=== PATIENT | male | born 1970 | race African-American/Black ===

== ENCOUNTER 2024-12-30 13:17 | Outpatient (AMB) | payer OTHER, SELFPAY ==
--- OUTSIDE RECORDS SUMMARY | 2024-12-27 15:23 | XMS_ITS | Encounter Summary ---
Author Organization [facility] Address [address] [place] [address] Phone Care Team Providers Care Stamp Pad Finisher Name Role Phone Joel Armando MD Unavailable [phone] Doron Whitley Unavailable [phone] Dangelo Huber MD Primary Care Provider Encounter Details Date Type Department Care Team (Latest Contact Info) Description 12/27/2024 3:23 PM EST - 12/27/2024 11:59 PM [facility] Hospital Encounter X-ray, [facility] - [address], [address] [place] [id number] Karo Bishop, SOFT SUGAR CUTTER [address] [place] [phone] [email or web address] Arrived Discharge Disposition: Home or Self Care Social History Tobacco Use Types Packs/Day Years Used Date Smoking Tobacco: Never Smokeless Tobacco: Never Alcohol Use Standard Drinks/Week Comments Yes 0 (1 standard drink = 0.6 oz pur e alcohol) only the weekends, social Education Answer Date Recorded Are you interested in more education? Not on melinda e 10/14/2024 Are you concerned about learning? Not on file 10/14/2024 No 10/14/2024 No 10/14/2024 Digital Access Answer Date Recorded No 10/14/2024 No 10/14/2024 Reliable internet access at home? Not on file 10/14/2024 Device with a working camera? Not on file Sex and Gender Information Value Date Recorded Sex Assigned at Male 11/04/2024 4:07 PM EDT Legal Sex Male 5:01 PM EDT Gender Identity Male 11/04/2024 4:07 PM EDT Sexual Orientation Straight 11/04/2024 4: 07 PM EDT documented as of this encounter Medications at Time of Discharge amLODIPine (NORVASC) 10 MG tablet Take 10 mg by mouth daily. aspirin 81 MG EC tablet Take 81 mg by mouth daily. 08/22/2024 metoprolol succinate (TOPROL-XL) 200 MG 24 hr tablet Take 200 mg by mouth daily. documented as of this encounter Plan of Treatment Upcoming Encounters Date Type Department Care Team (Latest Contact Info) Description 01/02/2025 Procedure Pass [facility] PERIOPERATIVE DEPT [address] [place] [phone] 01/02/2025 7:30 AM EST Hospital Encounter [facility] PERIOPERATIVE DEPT [address] [place] [phone] Doron Whitley MBBS [address] [place] [phone] [email or web address] 01/02/2025 7:30 AM EST Anesthesia Event [facility] PERIOPERATIVE DEPT [address] [place] [phone] Cherrie Hall MD [address] [place] [phone] [email or web address] 01/02/2025 7:30 AM EST - 01/02/2025 8:44 PM EST Surgery [facility] PERIOPERATIVE DEPT [address] [place] [phone] Doron Whitley MBBS [address] [place] [phone] [email or web address] ANEURYSM DESCENDING AORTA- EXTENT I Scheduled Procedures Name Priority Associated Diagnoses Date/Ti me REPAIR ANEURYSM DESCENDING AORTA Descending aortic aneurysm 01/02/2025 7:30 AM EST FLUOROSCOPY GUIDED PLACEMENT DRAIN LUMBAR SPINE Descending aortic aneurysm 01/02/2025 7:30 AM EST documented as of this encounter Goals Goal Patient Goal Type Associated Problems Recent Progress Patient-Stated? Author Autogenerat ed Goal Care Plan Autogenerated Problem No Optime, Admin documented as of this encounter Procedures Procedure Name Priority Date/Time Associated Diagnosis Comments XR CHEST PA AND LATERAL 2 VIEWS Routine 12/27/2024 3:29 PM EST Aneurysm documented in this encounter Results * XR CHEST PA AND LATERAL 2 VIEWS (12/27/2024 3:29 PM EST) Anatomical Region Laterality Modality Chest Radiographic Lianna ging 12/27/2024 3:41 PM EST Impressions 12/27/2024 4:08 PM EST Clear lungs. No pulmonary edema or pneumonia. Status post repair of type A aortic dissection with grossly unchanged enlarged mediastinum. ATTESTATION: I, Dr. Ra Marquez as teaching physician, have reviewed the images for this case and if necessary edited the report originally created by Mahamed Shelby. Narrative 12/27/2024 4:08 PM EST XR CHEST PA AND LATERAL 2 VIEWS Referring clinician's provided indication for this examination in [facility]: Dyspnea on exertion; preoperative evaluation COMPARISON: CT CHEST OUTSIDE (NO INTERPRETATION) FINDINGS: Devices/Tubes/Lines: None. Lungs: The lungs are clear. No focal consolidation or pulmonary edema. Pleura: No pleural effusion or pneumothorax. Heart/Mediastinum: Status post repair of Type A aortic dissection with grossly unchanged enlarged mediastinum with residual aortic root aneurysm and descending thoracic aortic aneurysm . Bones/Soft Tissues: Status post median sternotomy, with intact wires. No significant skeletal abnormality. Procedure Note Ra Marquez MD - 12/27/2024 XR CHEST PA AND LATERAL 2 VIEWS Referring clinician's provided indication for this examination in [facility]:Dyspnea on exertion; preoperative evaluation COMPARISON: CT CHEST OUTSIDE (NO INTERPRETATION) FINDINGS: Devices/Tubes/Lines: None. Lungs: The lungs are clear. No focal consolidation or pulmonary edema. Pleura: No pleural effusion or pneumothorax. Heart/Mediastinum: Status post repair of Type A aortic dissection withgrossly unchanged enlarged mediastinum with residual aortic root aneurysmand descending thoracic aortic aneurysm . Bones/Soft Tissues: Status post median sternotomy, with intact wires. Nosignificant skeletal abnormality. IMPRESSION: Clear lungs. No pulmonary edema or pneumonia. Status post repair of type A aortic dissection with grossly unchangedenlarged mediastinum. ATTESTATION: I, Dr. Ra Marquez as teaching physician, have reviewedthe images for this case and if necessary edited the report originallycreated by Mahamed Shelby. 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 documented in this encounter Additional Health Concerns Active Problems Noted Date Diagnosed Date Autogenerated Problem 12/19/2024 documented as of this encounter Care Teams Stamp Pad Finisher Relationship Specialty Start Date End Date Dangelo Huber MD [address] [phone] PCP - General Family Medicine 12/09/24 Joel Armando MD [address] [place] [phone] Thoracic Surgery 10/13/24 Doron Whitley MBBS [address] [place] [phone] [email or web address] Cardiothoracic Surgery 10/13/24 documented as of this encounter Additional Source Comments The information contained in this document represents components of the legal health record. It is not the complete legal health record.[facility]
--- NOTE | 2024-12-30 13:21 | A.OFFPC_ITS ---
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 Type A Aortic Dissection: The patient has a history of a Type A aortic dissection, which occurred suddenly as an emergency. He experienced tearing chest pain described as a burning sensation, along with severe pain in his back from top to bottom. The initial event was treated with emergency surgery, and it was noted that the dissection extended down to his kidneys. He is scheduled for a second surgery on Thursday in [place] due to remaining dilation of the aortic arch. This procedure will involve an incision on the side. There is a plan for a subsequent surgery on the left side after a healing period of six months to a year. Hypertension: The patient has a history of hypertension, which also runs in his family. He was previously on lisinopril but developed a severe allergic reaction with swelling after his surgery and was taken off the medication. He is currently taking amlodipine, aspirin, and metoprolol, and his blood pressure is reported to be well-controlled. Health Maintenance: For preventative care, the patient has had a colonoscopy and is considered clear for 10 years. He also recently had a tooth pulled as part of his pre-surgical dental clearance to prevent infection. Surgical History: - Emergency repair of Type A aortic diss ection - Tooth extraction for pre-operative princess arance Medications: - Amlodipine for hypertension - Aspirin - Metoprolol for heart rate and blood pr essure control Social History: - Alcohol use: Reports social alcohol co nsumption on weekends. - Tobacco use: Denies ever smoking. 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 Family History: - Hypertension Diagnostic Results: - Colonoscopy: Patient is up-to-date and cleared for 10 years. Past Medical History - Type A aortic dissection, status post emergency surgical repair - Hypertension - History of allergy to lisinopril, caus ing angioedema - History of kidney stones - History of intermittent right ear pain Health Maintenance - Colon cancer screening: Patient has mckeon d a colonoscopy and is clear for 10 years. - Pre-operative dental clearance: Sara kang was cleared by a dentist and had a tooth extraction to rule out any sources of infection. [facility] Medical History (Updated 12/30/24 @ 14:51 by Dangelo Huber MD) Class 1 obesity Hypertension Type 1 dissection of ascending aorta Family History (Updated 12/30/24 @ 13:28 by Suad Wilson [facility]) Mother Cardiac arrest Father No problems noted. Social History Housing: Apartment Patient Tobacco Use Status: Never used Tobacco service: No Current occupational status: employed Cognitive needs: No Hearing needs: No Vision needs: No Questionnaire PHQ-9 Over the last 2 weeks, how often have you been bothered by any of the following problems? 1. Little interest or pleasure in doing things: several days 2. Feeling down, depressed, or hopeless: several days 3. Trouble falling or staying asleep, or sleeping too much: not at all 4. Feeling tired or having little energy: not at all 5. Poor appetite or overeating: not at all 6. Feeling bad about yourself - or that you are a failure or have let yourself or your family down: not at all 7. Trouble concentrating on things, such as reading the newspaper or watching television: several days 8. Moving or speaking so slowly that other people could have noticed. Or the opposite - being so fidgety or restless that you have been moving around a lot more than usual: not at all 9. Thoughts that you would be better off or of hurting yourself in some way: not at all Total score: 3 Source: Developed by Drs. Alejandro Martinez, Sagrario Mills, Maxime Armenta and colleagues, with an educational karey from [employer]. Thrive Questionnaire Date Thrive assessed: 12/23/24 I am a: Patient What is your living situation today?: I have a steady place to live Within the past 12 months, did the food you bought not last and you didn't have the money to get more?: I choose not to answer this question Within the past 12 months, did you worry whether your food would run out before you got money to buy more?: I choose not to answer this question Do you have trouble paying for medicines?: No Do you have trouble getting transportation to medical appointments?: No Do you have trouble paying your heating and electricity bill?: I choose not to answer this question Do you have trouble taking care of your child, family member or friend?: No Do you have trouble with day-to-day activities such as bathing, preparing meals, shopping, managing finances, etc.?: No Are you currently unemployed and looking for a job?: No Are you interested in more education?: No Please select the resources that you would like help with: None Currently or been in a relationship where the following occur: No concerns reported THRIVE Score: 0 AUDIT C Alcohol Use Questionnaire (AUDIT-C) 1. How often do you have a drink containing alcohol?: 2-4 times a month 2. How many drinks containing alcohol do you have on a typical day when you are drinking?: 1 or 2 3. How often do you have six or more drinks on one occasion?: Less than monthly Total Score: 3 MAHOGANY-7 AMB Questionnaire MAHOGANY-7 Date MAHOGANY - 7 assessed: 12/30/24 Feeling nervous, anxious, or on edge: 1 = Several days Not being able to stop or control worryin = Not at all Worrying too much about different things: 2 = More than half the days Trouble relaxin = Not at all Being so restless that it is hard to sit still: 0 = Not at all Becoming easily annoyed or irritable: 1 = Several days Feeling afraid as if something awful might happen: 2 = More than half the days Total MAHOGANY-7 score (0-4 normal; 5-9 mild; 10-14 moderate; 15-21 severe): 6 Source: Developed by Drs. Alejandro Martinez, Sagrario Mills, Maxime Armenta and colleagues, with an educational karey from [employer]. Review of Systems Narrative Review of Systems - Constitutional: Reports feeling nervous and scared about upcoming surgery. - Cardiovascular: History of tearing chest pain during aortic dissection. - Musculoskeletal: History of severe back pain from top to bottom. - GI/: Reports normal bowel and bladder function. - Ears: Reports a history of intermittent right ear aches, but denies current pain. 10-point ROS reviewed and negative except as noted in HPI Physical exam (Primary Care) Vital Signs: Last Vital Signs Temp 98.6 F 12/30/24 13:25 Pulse 73 12/30/24 13:25 BP 139/67 12/30/24 13:25 Pulse Ox 97 12/30/24 13:25 Oxygen Delivery Method Room Air 12/30/24 13:25 BMI result Body Mass Index 31.3 Tobacco/Smoking Status: Tobacco use Status Tobacco use date assessed 12/30/24 12/30/24 13:22 Patient Tobacco Use Status Never used Tobacco 12/30/24 13:22 PHQ-9: PHQ-9 Score PHQ-9: Total score 3 12/30/24 15:00 Thrive Assessment: Date of Thrive Assessment Date Thrive assessed 12/23/24 12/30/24 13:22 Currently or been in a relationship where the following occur: No concerns reported Narrative Physical Exam General: Well-appearing, in no acute distress. Vital signs: Within normal limits. HEENT: Normocephalic, atraumatic. PERRLA, EOMI. Conjunctiva clear, sclera anicteric. Oropharynx clear, mucous membranes moist. TMs intact bilaterally. Neck: Supple, no lymphadenopathy, no thyromegaly, no JVD or carotid bruits. Cardiovascular: RRR, normal S1/S2, no murmurs, rubs, or gallops. Peripheral pulses 2+ and symmetric. No edema. Respiratory: Lungs clear to auscultation bilaterally, no wheezes, rales, or rhonchi. Normal effort. Abdomen: Soft, non-tender, non-distended. Normoactive bowel sounds. No hepatosplenomegaly, no masses. MSK: Full range of motion, no joint swelling or deformity. Normal gait. Skin: Warm, dry, intact. No rashes, lesions, or pallor. Neuro: Alert and oriented x3. Cranial nerves II-XII intact. Strength 5/5 throughout. Sensation intact. Reflexes 2+ symmetric. Normal coordination and gait. Psych: Appropriate mood and affect. Normal judgment and insight. Office Procedures Flu Questionnaire Does the patient have a severe egg allergy?: No Does the patient have severe life threatening allergies?: No Does the patient have a fever or illness today?: No Has the patient ever had Guillain-[place] Syndrome?: No Has the patient ever had any past reaction to a flu shot?: No Immunizations Fluarix [id number] (PF) 45 mcg (15 mcg x 3)/0.5 mL IM syringe Performing Provider: Dangelo Huber MD Performing Location: [facility] Documented (not given) by: Suad Wilson [facility] on 12/30/24 13:33 Reason Not Given: Patient Refused Coding Level of Care Code Est Pt Level 3 (59636) Diagnoses Type 1 dissection of ascending aorta I71.010 Hypertension I10 Class 1 obesity E66.9 Assessment & Plan Assessment & Plan (1) Type 1 dissection of ascending aorta: Code(s): I71.010 - Dissection of ascending aorta Category: Medical (2) Hypertension: Code(s): I10 - Essential (primary) hypertension Category: Medical (3) Class 1 obesity: Code(s): E66.9 - Obesity, unspecified Category: Medical Plan Consent The patient provided verbal consent to have pictures of his surgical scar taken for his medical record. Patient was informed and verbally consented to the use of an ambient scribe for clinic note documentation during this visit. Plan 1. Type A Aortic Dissection - The patient will proceed with his scheduled second-stage surgical repair in [place] on Thursday. - Patient education was provided using a 3D anatomical model to explain the aortic anatomy, the location of the dissection, the surgical plan, and the potential risks, including nerve damage. - A post-operative follow-up appointment is scheduled for February 01. 2. Health Maintenance / Establishment Of Care - To establish a baseline, a comprehensive panel of labs was ordered, including a complete blood count, comprehensive metabolic panel, hemoglobin A1c, lipid panel, hepatitis B, hepatitis C, HIV, folate, B12, vitamin D, and thyroid studies. - A urinalysis was also ordered. - Will ensure medical records from Dr. Ambriz are faxed to the office for continuity of care. - The patient will have labs drawn today and will follow up in two weeks to discuss the results. Discussion Notes I reviewed the patient's anatomy with him using a 3D model, explaining the nature of his Type A aortic dissection. I showed him how the aorta arches towards the back, which is why he experienced back pain, and pointed out why the surgeons plan to enter from the side due to the aorta's proximity to the spine. We discussed the risks of the upcoming surgery, including the 5% chance of complications and the potential for nerve damage. I acknowledged his nervousness and the life-threatening nature of his initial event, noting that most people with this condition do not survive. I explained that I am ordering a comprehensive set of baseline labs to get a complete picture of his health, including checks on kidney and liver function, blood counts, cholesterol, and sugar levels. We agreed that he would have the labs done today and follow up in two weeks to review the results. Patient Instructions - Proceed with your surgery scheduled for this Thursday in [place]. - Please have your blood work done today at the lab next door. - Please make sure your surgeon's office, Dr. Ambriz, faxes your medical records to us. - Come back in two weeks to talk about your lab results. - We have you scheduled for a follow-up visit here on February 01, after your surgery. Medical Decision Making The patient is a 54-year-old male with a significant history of a surgically- repaired Type A aortic dissection, who presents to establish care in anticipation of a second-stage repair surgery. The primary focus of this visit is to establish a baseline health status and ensure continuity of care post- operatively. Given his complex cardiovascular history and upcoming major surgery, a comprehensive laboratory evaluation is warranted to assess his hematologic, metabolic, and infectious disease status. This includes a CBC, CMP, HbA1c, lipid panel, and screenings for hepatitis and HIV to ensure no underlying conditions could complicate his recovery. His hypertension is currently managed on amlodipine, aspirin, and metoprolol, with a noted severe allergy to lisinopril. I provided extensive patient education using a 3D anatomical model to improve his understanding of the condition and surgical plan, which also served to address his expressed anxiety. The plan is to review lab results in two weeks and see him for post-operative management, coordinating with his surgical team. Total Time Statement 30 min Total time spent caring for the patient today includes pre-visit chart review, documentation, review of laboratory and diagnostic imaging results, medication reconciliation, medically necessary evaluation, counseling on diagnoses, care coordination, ordering appropriate tests and medications, review of tests performed by other providers, reporting test results to the patient, and communication with other healthcare providers. Orders: Orders Influenza [id number] Immunization 12/30/24 Z23 - Encounter for immunization Complete Blood Count Auto Diff 12/30/24 Z13.9 - Encounter for screening, unspecified Comprehensive Met. Panel 12/30/24 Z13.9 - Encounter for screening, unspecified HIV Ab/Ag 12/30/24 Z13. - Encounter for screening, unspecified Lipid Panel 12/30/24 Z. - Encounter for screening, unspecified Hemoglobin A1c 12/30/24 Z13. - Encounter for screening, unspecified Magnesium 12/30/24 Z13.9 - Encounter for screening, unspecified Hepatitis B Surface Antigen 12/30/24 Z13. - Encounter for screening, unspecified Hepatitis C Antibody 12/30/24 Z13.9 - Encounter for screening, unspecified TSH reflex Free T4 12/30/24 Z13.9 - Encounter for screening, unspecified UA CC w/rflx Micro + Cult 12/30/24 Z13. - Encounter for screening, unspecified Vitamin B12 and Folate 12/30/24 Z13. - Encounter for screening, unspecified Vitamin D 1,25 dihydroxy 12/30/24 Z13.9 - Encounter for screening, unspecified Hepatitis B Surface Antibody 12/30/24 Z13.9 - Encounter for screening, unspecified
[2024-12-30 13:25] VITALS: BP 139/67; PULSE 73; TEMP 37; O2SAT 97; BMI 31.3
--- OUTSIDE RECORDS SUMMARY | 2024-12-30 19:30 | XMS_ITS | Encounter Summary ---
Author Organization [facility] Address [address] [place] [address] Phone Care Team Providers Care Outreach Professional Name Role Phone Joel Armando MD Unavailable [phone] Doron Whitley Unavailable [phone] Dangelo Huber MD Primary Care Provider Encounter Details Date Type Department Care Team (Late st Contact Info) Description 12/16/2024 Prep for Surgery [facility] Division of Cardiac Surgery [address], 6th [address], [address] [place] [address] Karo Bishop, SHIRT FOLDING MACHINE OPERATOR [address] [place] [address] [email or web address] Dyspnea, unspecified type (Primary Dx); Aneurysm Social History Tobacco Use Types Packs/Day Years [...] PM EDT documented as of this encounter Plan of Treatment Upcoming Encounters Date Type Department Care Team (Latest Contact Info) Description 01/02/2025 Procedure Pass [facility] PERIOPERATIVE DEPT [address] [place] [phone] 01/02/2025 7:30 AM EST Hospital Encounter [facility] PERIOPERATIVE DEPT [address] [place] [phone] Doron Whitley MBBS [address] [place] [phone] [email or web address] 01/02/2025 7:30 AM EST Anesthesia Event [facility] PERIOPERATIVE DEPT [address] [place] [phone] Cherrie Hall MD [address] [place] [phone] [email or web address] 01/02/2025 7:30 AM EST - 01/02/2025 8:44 PM EST Surgery [facility] PERIOPERATIVE DEPT [address] [place] [phone] Doron Whitley MBBS [address] [place] [phone] [email or web address] REPLACEMENT ANEURYSM DESCENDING AORTA- EXTENT I Scheduled Orders Name Type Priority Associated Diagnoses Orde r Schedule ECG 12-LEAD ECG Routine Aneurysm Expected: 12/16/2024, Expires: 03/18/2025 Scheduled Procedures Name Priority Associated Diagnoses Date/Ti me REPAIR ANEURYSM DESCENDING AORTA Descending aortic aneurysm 01/02/2025 7:30 AM EST FLUOROSCOPY GUIDED PLACEMENT DRAIN LUMBAR SPINE Descending aortic aneurysm 01/02/2025 7:30 AM EST documented as of this encounter Results * XR CHEST PA [...] clinician's provided indication for this examination in [facility]: Dyspnea on exertion; preoperative evaluation COMPARISON: CT [...] clinician's provided indication for this examination in [facility]:Dyspnea on exertion; preoperative evaluation COMPARISON: CT CHEST [...] aortic dissection with grossly unchangedenlarged mediastinum. ATTESTATION: IDr. Ra as teaching physician, have reviewedthe images for this case and if necessary edited the report originallycreated by Mahamed Shelby. us Karo Bishop CNP IMG XR CHEST Final Res ult * MRSA/MSSA PRE-OP PCR (12/16/2024 3:09 PM EDT) MRSA PCR SCREEN NEGATIVE FOR MRSA (Methicillin Resistant S.aureus) NEGATIVE FOR MRSA (Methicillin Resistant S.aureus) [facility] MSSA PCR SCREEN NEGATIVE FOR MSSA (Methicillin Susceptible S.aureus) NEGATIVE FOR MSSA (Methicillin Susceptible S.aureus) [facility] Comment:This test was conduc rocky as part of Pre-Operative Screening for Staphylococcus aureus. Please direct any questions regarding this result to the Ordering Provider. Nasal (Nasal) 12/16/2024 3:0 9 PM EDT 12/16/2024 4:05 PM EDT Karo Bishop SHIRT FOLDING MACHINE OPERATOR LAB GENERAL ORDERABLES Fi nal Result Performing Organization Address City/[facility]/ZIP Co de Phone Number [address] [address] * PTT (12/16/2024 3:09 PM EDT) APTT 28.9 24.0 - 37.5 sec [facility] Comment:Check MAR for the ta rget range that is ordered for your patient. 12/16/2024 3:09 PM EDT 12/16/2024 4:02 PM EDT Result [facility] Karo Bishop CNP LAB BLOOD BKR ORDERABLES Final Result [address] [address] * PT-INR (12/16/2024 3:09 PM EDT) PT 11.4 10.0 - 13.0 sec [facility] INR 1.0 0.9 - 1.1 [facility] 12/16/2024 3:09 PM EDT 12/16/2024 4:02 PM EDT Karo Bishop [facility] LAB BLOOD BKR ORDERABLES Final Result [address] [address] * Hemoglobin A1c (12/16/2024 3:09 PM EDT) HEMOGLOBIN A1C 5.5 4.3 - 5.6 % [facility] Comment:HbA1c levels 5.7-6.4 % represent pre-diabetes, indicating impaired glucose control and an increased risk of developing diabetes compared with lower HbA1c levels. The diagnostic HbA1c level for diabetes is 6.5% or greater. CALC MEAN BLD GLUC 111 mg/dL [facility] Comment:There is no establis hed normal range for the Calculated Mean Blood Glucose (CMBG), however a HbA1c of 5.6% (upper limit of normal) represents a CMBG of 114 mg/dL. The diagnostic hemoglobin A1c level for diabetes is greater than or equal to 6.5% which represents a CMBG greater than or equal to 140 mg/dL. 12/16/2024 3:09 PM EDT 12/16/2024 5:03 PM EDT Karo Bishop [facility] LAB BLOOD BKR ORDERABLES Final Result Performing Organization Address [facility]/ZIP Co de Phone Number [address] [address] * Magnesium (12/16/2024 3:09 PM EDT) Pathologist [facility] MAGNESIUM 2.1 1.7 - 2.4 mg/dL [facility] 12/16/2024 3:09 PM EDT 12/16/2024 4:54 PM EDT Karo Bishop [facility] LAB BLOOD BKR ORDERABLES Final Result Performing Organization Address City/[facility]/ZIP Co de Phone Number [address] [address] * Comprehensive metabolic panel (12/16/2024 3:09 PM EDT) SODIUM 139 135 - 145 mmol/L [facility] POTASSIUM 3.8 3.4 - 5.0 mmol/L [facility] CHLORIDE 104 98 - 108 mmol/L [facility] CO2 25 23 - 32 mmol/L [facility] BUN 13 8 - 25 mg/dL [facility] CREATININE 0.95 0.60 - 1.30 mg/dL [facility] GLUCOSE 76 70 - 110 mg/dL [facility] ALBUMIN 4.4 3.3 - 5.0 g/dL [facility] TOTAL PROTEIN 7.6 6.0 - 8.3 g/dL [facility] CALCIUM 9.4 8.5 - 10.5 mg/dL [facility] ALKALINE PHOSPHATASE 85 45 - 115 U/L [facility] TOTAL BILIRUBIN 1.0 0.0 - 1.0 mg/dL [facility] AST 15 10 - 40 U/L [facility] ALT 13 10 - 55 U/L [facility] GLOBULIN 3.2 1.9 - 4.1 g/dL [facility] EGFR 96 >59 mL/min/1. 73m2 [facility] Comment:Estimated glomerular filtration rate calculated using the CKD-EPI refit equation. ANION GAP 10 3 - 17 mmol/L [facility] 12/16/2024 3:09 PM EDT 12/16/2024 4:54 PM EDT us Karo Bishop SHIRT FOLDING MACHINE OPERATOR LAB BLOOD BKR ORDERABLES Final Result Performing Organization Address City/State/[facility] Co de Phone Number [address] [address] * (ABNORMAL) CBC and differential (12/16/2024 3:09 PM EDT) WBC 6.03 4.00 - 11.00 K/uL [facility] RBC 4.40(L) 4.50 - 5.90 M/uL [facility] HGB 13.2(L) 13.5 - 17.5 g/dL [facility] HCT 39.9(L) 41.0 - 53.0 % [facility] PLT 261 150 - 450 K/uL [facility] MCV 90.7 80.0 - 100.0 fL [facility] MCH 30.0 27.0 - 31.0 pg [facility] MCHC 33.1 32.0 - 36.0 g/dL [facility] RDW 13.3 11.5 - 14.5 % [facility] MPV 10.3 8.4 - 12.0 fL [facility] NRBC 0.00 0.00 /100 WBCs [facility] ABSOLUTE NRBC 0.00 0.00 K/uL [facility] DIFF METHOD Auto [facility] NEUTS 34.7(L) 48.0 - 76.0 % [facility] LYMPHS 52.6(H) 18.0 - 41.0 % [facility] MONOS 8.8 4.0 - 11.0 % [facility] EOS 3.0 0.0 - 5.0 % [facility] BASOS 0.7 0.0 - 1.5 % [facility] % IMMATURE GRANS 0.2 0.0 - 0.9 % [facility] ABSOLUTE NEUTS 2.10 1.92 - 7.60 K/uL [facility] ABSOLUTE LYMPHS 3.17 0.72 - 4.10 K/uL [facility] ABSOLUTE MONOS 0.53 0.16 - 1.10 K/uL [facility] ABSOLUTE EOS 0.18 0.00 - 0.50 K/uL [facility] ABSOLUTE BASOS 0.04 0.00 - 0.15 K/uL [facility] ABS IMMATURE GRANS 0.01 0.00 - 0.09 K/uL [facility] Blood 12/16/2024 3:09 PM EDT 12/16/2024 5:03 PM EDT us Karo Bishop SHIRT FOLDING MACHINE OPERATOR LAB BLOOD BKR ORDERABLES Final Result Performing Organization Address City/State/[facility] Co de Phone Number [address] [address] * Type and Screen (ABO,Rh,Antibody Screen) (12/16/2024 3:09 PM EDT) Expiration Date of Sample 01/15/2025 11:59 PM [facility] ABO B 12/16/2024 4:59 PM EDT [facility] Rh Positive 12/16/2024 4:59 PM EDT [facility] Resulting Agency [facility] Antibody Screen Negative 12/16/2024 5:10 PM EDT [facility] 12/16/2024 3:09 PM EDT 12/16/2024 4:06 PM EDT us Karo Edgetrevon SHIRT FOLDING MACHINE OPERATOR LAB BLOOD BANK TEST ORDER NOREEN Final Result [facility] [address] [place] [address] documented in this encounter Visit Diagnoses Diagnosis Dyspnea, unspecified type- Primary Aneurysm Other aneurysm of unspecified site Aneurysm Other aneurysm of unspecified site Descending aortic aneurysm 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 It is not the complete legal health record.[facility]
--- OUTSIDE RECORDS SUMMARY | 2024-12-30 19:30 | XMS_ITS | Clinical Summary ---
Author Organization [facility] Address [address] [place] [address] Care Team Providers Care Customer Agent Name Role Phone Unavailable Primary Care Provider Unavailabl e Source Comments PLEASE NOTE, if this patient is a minor, it may be UNLAWFUL to discuss sensitive information that is contained in these records (such as FAMILY PLANNING, MENTAL HEALTH or SUBSTANCE ABUSE) with the minor patient's parent or other person without the patient's specific authorization.[facility] Medications amLODIPine (NORVASC) 10 mg tablet Take 10 mg by mouth daily. 11/07/[address] tablet Take 81 mg by mouth daily. 08/22/2024 Active metoprolol succinate (TOPROL-XL) 200 mg 24 hr tablet Take 200 mg by mouth daily. 03/15/2024 Active Active Problems No known active problems Encounters Date Type Department Care Team Description 12/16/2024 10:20 AM EDT Office Visit [facility] [address] [place] [address] Armani Damon DDS 12/16/2024 9:00 AM EDT Office Visit [facility] [address] [place] [address] Marva Boston from Last 3 Months Social History Tobacco Use Types Packs/Day Years Used Date Smoking Tobacco: Never Assessed Sex and Gender Information Value Date Recorded Sex Assigned at Not on file Legal Sex Male 11:36 AM PDT Gender Identity Not on file Sexual Orientation Not on file Last Filed Vital Signs Vital Sign Reading Time Taken Comments Blood Pressure 157/91 12/16/2024 10:29 AM EDT Pulse 58 12/16/2024 10:29 AM EDT Temperature - - Respiratory Rate - - Oxygen Saturation - - Inhaled Oxygen Concentration - - Weight - - Height - - Body Mass Index - - Plan of Treatment Health Maintenance Due Date Last Done Comments Anxiety Screening 1971 Dental Perio Charting 1971 Dental Prophy 1971 Diabetes Screening 1971 Hepatitis C Screening 1971 Lipid Screening 1971 Tobacco Screening 1971 HIV Screening 05/13/1986 Imm-Hepatitis B (1 of 3 - 19 + 3-dose series) 05/13/1990 CT Colonography 05/13/2016 Colonoscopy 05/13/2016 Colorectal Cancer Screening 05/13/2016 FIT/gFOBT 05/13/2016 Fecal DNA 05/13/2016 Flexible Sigmoidoscopy 05/13/2016 Imm-Pneumococcal 50+ (1 of 1 - PCV) 05/13/2021 Imm-Zoster, Recombinant (1 of 2) 05/13/2021 Imm-DTaP/Tdap/Td (1 - Tdap) 09/04/2023 09/03/2023 Alcohol and Drug Screen 02/17/2024 Depression Annual Screen 02/17/2024 [id number] (3 - season) 2024 021, 10/30/2020 Imm-Influenza (#1) 2024 Hypertension Screening (#1) 12/16/2025 Dental BW 12/18/2025 12/16/2024 Dental Examination 12/18/2025 12/16/2024 Dental FMX/Pano 12/18/2029 12/16/2024 Procedures Procedure Name Priority Date/Time Associated Diagnosis Comments 3 EXTRACTION ERUPTED TOOTH OR EXPOSED ROOT Routine 12/16/2024 10:20 AM EDT Retained tooth root DENTAL CASE MANAGEMENT - MOTIVATIONAL INTV Routine 12/16/2024 9:00 AM EDT Retained tooth root Abfraction Excessive attrition of teeth Caries Caries of enamel (incipient) INTRAORAL - COMP SERIES OF RADIOGRAPHIC IMAGES Routine 12/16/2024 9:00 AM EDT Retained tooth root Caries of enamel (incipient) Excessive attrition of teeth Caries Abfraction COMP ORAL EVALUATION - NEW/ESTABLISHED PATIENT Routine 12/16/2024 9:00 AM EDT Retained tooth root Abfraction Excessive attrition of teeth Caries Caries of enamel (incipient) CARIES RISK ASSESSMENT & DOC FINDING MOD RISK Routine 12/16/2024 9:00 AM EDT Retained tooth root Abfraction Excessive attrition of teeth Caries Caries of enamel (incipient) NUTRITIONAL COUNSELING CONTROL OF DENTAL DISEASE Routine 12/16/2024 9:00 AM EDT Retained tooth root Abfraction Excessive attrition of teeth Caries Caries of enamel (incipient) ORAL HYGIENE INSTRUCTIONS Routine 12/16/2024 9:00 AM EDT Retained tooth root Abfraction Excessive attrition of teeth Caries Caries of enamel (incipient) ORAL CANCER SCREENING Routine 12/16/2024 9:00 AM EDT Retained tooth root Abfraction Excessive attrition of teeth Caries Caries of enamel (incipient) CASE PRESENTATION SUBS DTL & EXTENSIVE TX PLN Routine 12/16/2024 9:00 AM EDT Retained tooth root Abfraction Excessive attrition of teeth Caries Caries of enamel (incipient) 30 MOD COMPOSITE - WISDOM (NON BILLABLE) Routine 12/16/2024 12:00 AM EDT 15 O AMALGAM - WISDOM (NON BILLABLE) Routine 12/16/2024 12:00 AM EDT 14 O AMALGAM - WISDOM (NON BILLABLE) Routine 12/16/2024 12:00 AM EDT from Last 3 Months [facility] DENTAL
--- OUTSIDE RECORDS SUMMARY | 2024-12-30 19:31 | XMS_ITS | Clinical Summary ---
Author Organization [facility] Address [address] [place] [address] Phone Care Team Providers Care Chair Upholsterer Name Role Phone Maximino Florez MD Primary Care Provider Allergies No known active allergies Medications No known medications Social History Tobacco Use Types Packs/Day Years Used Date Smoking Tobacco: Never Smokeless Tobacco: Never Tobacco Cessation:Counseling Given: Not Answered Alcohol Use Standard Drinks/Week Comments Never 0 (1 standard drink = 0.6 oz pur e alcohol) Sex and Gender Information Value Date Recorded Sex Assigned at Not on file Legal Sex Male 8:21 PM EST Gender Identity Not on file Sexual Orientation Not on file Obstetrics History Last Filed Vital Signs Vital Sign Reading Time Taken Comments Blood Pressure 177/103 07/24/2024 12:39 PM EDT Pulse 91 07/24/2024 12:39 PM EDT Temperature 36.2 C (97.2 F) 07/24/2024 12:39 PM EDT Respiratory Rate 18 07/24/2024 12:39 PM EDT Oxygen Saturation 99% 07/24/2024 12:39 PM EDT Inhaled Oxygen Concentration - - Weight 92.5 kg (204 lb) 07/24/2024 10:12 AM EDT Height 170.2 cm (5' 7 ) 07/24/2024 10:12 AM EDT Body Mass Index 31.95 07/24/2024 10:12 AM EDT Plan of Treatment Health Maintenance Due Date Last Done Comments Colorectal Cancer Screening: Colonoscopy 1971 Hepatitis B Vaccines (1 of 3 - 19+ 3-dose series) 05/13/1990 Pneumococcal Vaccine: 50+ Years (1 of 1 - PCV) 05/13/2021 Zoster Vaccines (1 of 2) 05/13/2021 Depression Screening 02/17/2024 Cholesterol Screening (Lipid Panel) 07/24/2024 HIV Screening 07/24/2024 Hepatitis C Screening 07/24/2024 Hypertension/CHF/CAD Annual BMP Blood Test 07/24/2024 Social Influencers of Health Screening 07/24/2024 COVID-19 Vaccine (3 - 2024-2 6 season) 2024 11/20/2020, 10/30/2020 Influenza Vaccine (#1) 2024 DTaP,Tdap,and Td Vaccines (2 - Td or Tdap) 09/02/2033 09/03/2023 RSV Immunization Adult Patients (1 - 1-dose 75+ series) 05/13/2046 HIB Vaccines Aged Out No longer eligi ble based on patient's age to complete this topic HPV Vaccines Aged Out No longer eligi ble based on patient's age to complete this topic Hepatitis A Vaccines Aged Out No long er eligible based on patient's age to complete this topic IPV Vaccines Aged Out No longer eligi ble based on patient's age to complete this topic MMR Vaccines Aged Out No longer eligi ble based on patient's age to complete this topic Meningococcal ACWY Vaccine Aged Out N o longer eligible based on patient's age to complete this topic Meningococcal B Vaccine Aged Out No l onger eligible based on patient's age to complete this topic RSV Immunization Patients Under 20 months Aged Out No longer eligible b ased on patient's age to complete this topic Varicella Vaccines Aged Out No longer eligible based on patient's age to complete this topic Insurance [facility] MEDICAID ADVANTAGE Care Teams Chair Upholsterer Relationship Specialty Start Date End Date Maximino Florez MD [address] [place] [address] PCP - General Internal Medicine 07/24/24
--- OUTSIDE RECORDS SUMMARY | 2024-12-30 19:31 | XMS_ITS | Encounter Summary ---
Author Organization [facility] Address [address] [place] [address] Phone Care Team Providers Care Machine Hoop Maker Helper Name Role Phone Joel Armando MD Unavailable [phone] Doron Whitley Unavailable [phone] Dangelo Huber MD Primary Care Provider Encounter Details Date Type Department Care Team (Late st Contact Info) Description 12/16/2024 Orders Only [facility] EKG LAB VIRTUAL DEPARTMENT [address] [place] [address] [phone] Suzanne Vo [address] [place] [phone] [email or web address] Preop cardiovascular exam Social History Tobacco Use Types Packs/Day Years [...] (Latest Contact Info) Description 01/02/2025 Procedure Pass [facility] PERIOPERATIVE DEPT [address] [place] [phone] 01/02/2025 7:30 AM EST Hospital Encounter [facility] PERIOPERATIVE DEPT [address] [place] [phone] Doron Whitley MBBS [address] [place] [phone] [email or web address] 01/02/2025 7:30 AM EST Anesthesia Event [facility] PERIOPERATIVE DEPT [address] [place] [phone] Cherrie Hall MD [address] [place] [phone] [email or web address] 01/02/2025 7:30 AM EST - 01/02/2025 8:44 PM EST Surgery [facility] PERIOPERATIVE DEPT [address] [place] [phone] Doron Whiltey MBBS [address] [place] [phone] [email or web address] REPLACEMENT ANEURYSM DESCENDING AORTA- EXTENT I Scheduled Procedures Name Priority Associated Diagnoses Date/Ti me REPAIR ANEURYSM DESCENDING AORTA Descending aortic aneurysm 01/02/2025 7:30 AM EST FLUOROSCOPY GUIDED PLACEMENT DRAIN LUMBAR SPINE Descending aortic aneurysm 01/02/2025 7:30 AM EST documented as of this encounter Procedures Procedure Name Priority Date/Time Associated Diagnosis Comments ECG 12-LEAD Routine 12/16/2024 2:30 PM EDT Preop cardiovascular exam documented in this encounter Results * ECG 12-LEAD (12/16/2024 2:30 PM EDT) Systolic Blood Pressure [facility] Diastolic Blood Pressure [facility] Ventricular Rate EKG/MIN 59 BPM [facility] Atrial Rate 59 BPM [facility] OK Interval 162 ms [facility] QRS Duration 100 ms [facility] QT Interval 402 ms [facility] QTC Interval 397 ms [facility] P [place] 66 degrees [facility] R [place] -19 degrees [facility] T [place] 38 degrees [facility] 12/16/2024 2:30 PM EDT 12/20/2024 10:50 AM EST Narrative [facility] - 12/20/2024 10:50 AM EST LOC: [facility] - CARDIAC SURG DX: PRE-OP REF: MITRA DIZA SINUS BRADYCARDIA TRACING IS WITHIN NORMAL LIMITS NO PREVIOUS ECGS AVAILABLE Mitra DIAZ ECG ORDERABLES Fi nal Result [facility] documented in this encounter Visit Diagnoses Diagnosis Preop cardiovascular exam Pre-operative cardiovascular examination Descending aortic aneurysm 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 It is not the complete legal health record.[facility]
--- OUTSIDE RECORDS SUMMARY | 2024-12-30 19:31 | XMS_ITS | Clinical Summary ---
Author Organization [facility] Address [address] [place] [address] Phone Care Team Providers Care Final Inspector Motorcyles Name Role Phone Joel Armando MD Unavailable [phone] Doron Whitley Unavailable [phone] Dangelo Huber MD Primary Care Provider Allergies Active Allergy Reactions Criticality Noted Date Comments Lisinopril Swelling,Angioedema 11/09/2024 Admission to hospital for swelling Medications amLODIPine (NORVASC) 10 MG tablet Take 10 mg by mouth daily. Active aspirin 81 MG EC tablet Take 81 mg by mouth daily. 08/22/2024 Active metoprolol succinate (TOPROL-XL) 200 MG 24 hr tablet Take 200 mg by mouth daily. Active Active Problems Problem Noted Date Diagnosed Date HBP (high blood pressure) 11/09/2024 MUNA (obstructive sleep apnea) 11/09/2024 Aortic dissection 09/15/2024 Encounters Date Type Department Care Team Description 12/30/2024 Telephone [facility] Division of Cardiac Surgery [address], 6th Floor, [address] [place] [address] Aiden Miller CNP 12/27/2024 3:23 PM EST - 12/27/2024 11:59 PM EST Hospital Encounter X-ray, [facility] [place] [address] [address] [facility], [address] [place] [address] Karo Bishop CNP Arrived Discharge Disposition: Home or Self Care 12/18/2024 Orders Only [facility] Blood Bank [address] [place] [address] Johnny Smith MD, MPH 12/16/2024 2:19 PM EDT - 12/16/2024 11:59 PM EDT Hospital Encounter [facility] Phleb ACC[address] [place] [address] Discharge Disposition: Home or Self Care 12/16/2024 Prep for Surgery [facility] Division of Cardiac Surgery [address], 6th Floor, [address] [place] [address] Karo Bishop CNP Dyspnea, unspecified type (Primary Dx); Aneurysm 12/16/2024 Orders Only [facility] EKG LAB VIRTUAL DEPARTMENT [address] [place] [address] Suzanne Vo Preop cardiovascular exam 12/09/2024 4:20 PM EDT - 12/09/2024 11:59 PM EDT Hospital Encounter [facility] Phleb ACC[facility] [address] [place] [address] Karo Bishop CNP Discharge Disposition: Home or Self Care 12/09/2024 3:25 PM EDT - 12/09/2024 4:19 PM EDT Hospital Encounter [facility] CT, [place] 2 [address] [facility], 2nd Floor, [address] [place] [address] Karo Bishop CNP Discharge Disposition: Home or Self Care 12/09/2024 2:00 PM EDT Pre-Admission Testing [facility] Division of Cardiac Surgery [address] [facility] [address] [facility], 6th Floor, [address] [place] [address] Doron Whitley MBBS Preop cardiovascular exam (Primary Dx) 11/17/2024 Procedure Pass [facility] CT, [place] 2 [address] [facility], 2nd Floor, [address] [place] [address] 11/17/2024 Orders Only [facility] Division of Cardiac Surgery [address] [facility], 6th Floor, [address] [place] [address] Karo Bishop CNP Preoperative cardiovascular examination (Primary Dx) 11/17/2024 Documentation [facility] Division of Cardiac Surgery [address] [facility], 6th Floor, [address] [place] [address] Karo Bishop CNP 11/14/2024 Documentation [facility] Division of Cardiac Surgery [address] [facility], 6th Floor, [address] [place] [address] Diamond Hernandez CNP 11/09/2024 8:45 AM EDT Office Visit [facility] Division of Cardiac Surgery [address] [facility], 6th Floor, [address] [place] [address] Doron Whitley MBBS S/P aortic dissection repair (Primary Dx) 11/09/2024 Telephone [facility] Division of Cardiac Surgery [address] [facility], 6th Floor, [address] [place] [address] Doron Whitley MBBS 11/08/2024 Ancillary Orders [facility] [address] [place] [address] Doron Whitley MBBS 11/07/2024 Telephone [facility] Division of Cardiac Surgery [address] [facility], 6th Floor, [address] [place] [address] Doron Whitley MBBS 10/31/2024 - 10/31/2024 11:59 PM EDT Hospital Encounter [facility] [address] [place] [address] Doron Whitley MBBS Discharge Disposition: Home or Self Care 10/18/2024 Telephone [facility] Division of Cardiac Surgery [address] [facility] [address] [facility], 6th Floor, [address] [place] [address] Order Mode, Transmission Systems Operator Appointment 10/18/2024 Orders Only [facility] Division of Cardiac Surgery [address] [place] [address], 6th Floor, [address] [place] [address] Mitra Arrieta FNP S/P aortic dissection repair (Primary Dx); Aortic root aneurysm 10/14/2024 Transcribe Orders [facility] Division of Cardiac Surgery [address] [facility], 6th Floor, [address] [place] [address] Maximino Florez MD 10/14/2024 Ancillary Orders [facility] [address] [place] [address] Doron Whitley MBBS 10/14/2024 Ancillary Orders [facility] [address] [place] [address] Doron Whitley MBBS 10/14/2024 Ancillary Orders [facility] [address] [place] [address] Doron Whitley MBBS 09/30/2024 - 09/30/2024 11:59 PM EDT Hospital Encounter [facility] [address] [place] [address] Doron Whitley MBBS Discharge Disposition: Home or Self Care from Last 3 Months Family History Medical History Relation Comments Sudden cardiac Mother cardiac arr est, age 46 Relation Status Comments Father Mother Social History Tobacco Use Types Packs/Day Years Used Date Smoking Tobacco: Never Smokeless Tobacco: Never Tobacco Cessation:Counseling Given: Not Answered Alcohol Use Standard Drinks/Week Comments Yes 0 [...] Orientation Straight 11/04/2024 4: 07 PM EDT Last Filed Vital Signs Vital Sign Reading Time Taken Comments Blood Pressure 152/83 12/09/2024 4:05 PM EDT Pulse 63 12/09/2024 3:45 PM EDT Temperature 36.4 C (97.5 F) 12/09/2024 2:30 PM EDT Respiratory Rate 16 12/09/2024 3:45 PM EDT Oxygen Saturation 100% 12/09/2024 3:45 PM EDT Inhaled Oxygen Concentration - - Weight 91 kg (200 lb 9.6 oz) 12/09/2024 2:30 PM EDT Height 171.5 cm (5' 7.5 ) 12/09/2024 2:30 PM EDT Body Mass Index 30.95 12/09/2024 2:30 PM EDT Plan of Treatment Upcoming Encounters Date Type Department Care Team (Latest Contact Info) Description 01/02/2025 Procedure Pass [facility] PERIOPERATIVE DEPT [address] [place] [phone] 01/02/2025 7:30 AM EST Hospital Encounter [facility] PERIOPERATIVE DEPT [address] [place] [phone] Doron Whitley MBBS [address] [place] [id number] [email or web address] 01/02/2025 7:30 AM EST Anesthesia Event [facility] PERIOPERATIVE DEPT [address] [place] [phone] Cherrie Hall MD [address] [place] [address] [email or web address] 01/02/2025 7:30 AM EST - 01/02/2025 8:44 PM EST Surgery [facility] PERIOPERATIVE DEPT [address] [place] [phone] Doron Whitley MBBS [address] [place] [id number] [email or web address] REPLACEMENT ANEURYSM DESCENDING AORTA- EXTENT I Scheduled Procedures Name Priority Associated Diagnoses Date/Ti me REPAIR ANEURYSM DESCENDING AORTA Descending aortic aneurysm 01/02/2025 7:30 AM EST FLUOROSCOPY GUIDED PLACEMENT DRAIN LUMBAR SPINE Descending aortic aneurysm 01/02/2025 7:30 AM EST Health Maintenance Due Date Last Done Comments Adult Td,Tdap Booster 1971 LIPID PANEL 1971 DEPRESSION SCREENING 1983 HEPATITIS C SCREENING 05/13/1989 HIV ONE-TIME SCREENING (18-6 5 YEARS) 05/13/1989 COLOGUARD 05/13/2016 COLONOSCOPY 05/13/2016 COLORECTAL CANCER SCREENING 05/13/2016 FIT TEST 05/13/2016 FOBT 05/13/2016 SIGMOIDOSCOPY 05/13/2016 VIRTUAL COLONOSCOPY 05/13/2016 PNEUMOCOCCAL VACCINES (50+ years) (1 of 1 - PCV) 05/13/2021 ZOSTER VACCINES (1 of 2) 05/13/2021 INFLUENZA VACCINE (#1) 2024 COVID-19 VACCINE (1 - 2024-2 6 season) 2024 BLOOD PRESSURE 06/09/2025 12/09/2024 SCREENING FOR DIABETES 12/17/2027 , 12/16/2024 RSV VACCINE (1 - 1-dose 75+ series) 05/13/2046 SMOKING STATUS SCREENING (On ce After 26 Yrs) Completed 12/09/2024 HEPATITIS A VACCINES Aged Out No long er eligible based on patient's age to complete this topic HIB VACCINES Aged Out No longer eligi ble based on patient's age to complete this topic IPV VACCINES Aged Out No longer eligi ble based on patient's age to complete this topic MENINGOCOCCAL VACCINES (ACWY) Aged Out No longer eligible based on patient's age to complete this topic MENINGOCOCCAL VACCINES (B) Aged Out N o longer eligible based on patient's age to complete this topic Goals Goal Patient Goal Type Associated Problems Recent Progress Patient-Stated? Author Autogenerat ed Goal Care Plan Autogenerated Problem No Optime, Admin Medical Devices Not on file Procedures Procedure Name Priority Date/Time Associated Diagnosis Comments XR CHEST PA AND LATERAL 2 VIEWS Routine 12/27/2024 3:29 PM EST Aneurysm TYPE AND SCREEN (CONVERSION) Routine 12/18/2024 8:47 AM EST ABO AND RH STAT 12/16/2024 3:09 PM EDT CBC AND DIFFERENTIAL Routine 12/16/2024 3:09 PM EDT Aneurysm COMPREHENSIVE METABOLIC PANEL (CMP) Routine 12/16/2024 3:09 PM EDT Aneurysm MAGNESIUM Routine 12/16/2024 3:09 PM EDT Aneurysm HEMOGLOBIN A1C Routine 12/16/2024 3:09 PM EDT Aneurysm PT-INR Routine 12/16/2024 3:09 PM EDT Aneurysm PTT Routine 12/16/2024 3:09 PM EDT Aneurysm HC BLOOD TYPING SEROLOGIC ABO Routine 12/16/2024 3:09 PM EDT Aneurysm MRSA/MSSA PRE-OP PCR Routine 12/16/2024 3:09 PM EDT Aneurysm ECG 12-LEAD Routine 12/16/2024 2:30 PM EDT Preop cardiovascular exam CT CARDIAC WITH AND WITHOUT CONTRAST, CT ANGIO ABDOMEN/PELVIS WITH AND WITHOUT CONTRAST Routine 12/09/2024 4:18 PM EDT Preoperative cardiovascular examination OUTSIDE PROCEDURE 11/08/2024 CT CHEST OUTSIDE (NO INTERPRETATION) Routine 10/31/2024 12:00 AM EDT OUTSIDE IMAGING 10/14/2024 OUTSIDE IMAGING 10/14/2024 OUTSIDE PROCEDURE 10/14/2024 US CARDIAC OUTSIDE (NO INTERPRETATION) Routine 09/30/2024 12:00 AM EDT from Last 3 Months Results * XR CHEST PA AND LATERAL [...] clinician's provided indication for this examination in [facility]: Dyspnea on exertion; preoperative evaluation COMPARISON: [...] clinician's provided indication for this examination in [facility]:Dyspnea on exertion; preoperative evaluation COMPARISON: CT [...] originallycreated by Mahamed Shelby. us Karo Bishop MANAGER OF CUSTOMER BILLING IMG XR CHEST Final Res ult * Type and Screen (Conversion) (12/18/2024 8:47 AM EST) Hold Tube Completed? Yes 12/18/2024 8:56 AM EST [facility] DEPARTMENT OF PATHOLOGY Blood (Blood) 12/18/2024 8:4 7 AM EST 12/18/2024 8:47 AM EST us Johnny Smith MD, MPH LAB BLOOD BANK TEST ORDERAB LES Final Result Performing Organization Address City/[facility] Co de Phone Number [facility] DEPARTMENT OF PATHOLOGY [address] [place] [address] * MRSA/MSSA PRE-OP PCR (12/16/2024 3:09 PM EDT) Pathologist [facility] MRSA PCR SCREEN NEGATIVE FOR MRSA (Methicillin Resistant S.aureus) NEGATIVE FOR MRSA (Methicillin Resistant S.aureus) [facility] MSSA PCR SCREEN NEGATIVE FOR MSSA (Methicillin Susceptible S.aureus) NEGATIVE FOR MSSA (Methicillin Susceptible S.aureus) [facility] Comment:This test was conduc rocky as part of Pre-Operative Screening for Staphylococcus aureus. Please direct any questions regarding this result to the Ordering Provider. Nasal (Nasal) 12/16/2024 3:0 9 PM EDT 12/16/2024 4:05 PM EDT us Karo Bishop [facility] LAB GENERAL ORDERABLES Fi nal Result Performing Organization Address City/[facility]/ZIP Co de Phone Number [address] [address] * Comprehensive metabolic panel (12/16/2024 3:09 PM EDT) Pathologist [facility] SODIUM 139 135 - 145 mmol/L [facility] POTASSIUM 3.8 3.4 - 5.0 mmol/L [facility] CHLORIDE 104 98 - 108 mmol/L [facility] CO2 25 23 - 32 mmol/L [facility] BUN 13 8 - 25 mg/dL [facility] CREATININE 0.95 0.60 - 1.30 mg/dL [facility] GLUCOSE 76 70 - 110 mg/dL [facility] ALBUMIN 4.4 3.3 - 5.0 g/dL [facility] TOTAL PROTEIN 7.6 6.0 - 8.3 g/dL [facility] CALCIUM 9.4 8.5 - 10.5 mg/dL [facility] ALKALINE PHOSPHATASE 85 45 - 115 U/L [facility] TOTAL BILIRUBIN 1.0 0.0 - 1.0 mg/dL [facility] AST 15 10 - 40 U/L [facility] ALT 13 10 - 55 U/L [facility] GLOBULIN 3.2 1.9 - 4.1 g/dL [facility] EGFR 96 >59 mL/min/1. 73m2 [facility] Comment:Estimated glomerular filtration rate calculated using the CKD-EPI refit equation. ANION GAP 10 3 - 17 mmol/L [facility] 12/16/2024 3:09 PM EDT 12/16/2024 4:54 PM EDT Karo Bishop [facility] LAB BLOOD BKR ORDERABLES Final Result [address] [address] * ABO and Rh (12/16/2024 3:09 PM EDT) Expiration Date of Sample 01/15/2025 11:[address] [facility] ABO B 12/16/2024 4:[address] [facility] Rh Positive 12/16/2024 4:[address]T [facility] Resulting Agency [facility] 12/16/2024 3:09 PM EDT 12/16/2024 4:06 PM EDT Result [facility] Blood Bank LAB BLOOD BANK TEST ORDERABLES F inal Result Performing Organization Address [facility]/ZIP Co de Phone Number [address] [address] * PTT (12/16/2024 3:09 PM EDT) APTT 28.9 24.0 - 37.[address] [facility] Comment:Check MAR for the ta rget range that is ordered for your patient. 12/16/2024 3:09 PM EDT 12/16/2024 4:02 PM EDT Karo Bishop [facility] LAB BLOOD BKR ORDERABLES Final Result Performing Organization Address City/[facility]/ZIP Co de Phone Number [address] [address] * PT-INR (12/16/2024 3:09 PM EDT) PT 11.4 10.0 - 13.[address] [facility] INR 1.0 0.9 - 1.1 [facility] 12/16/2024 3:09 PM EDT 12/16/2024 4:02 PM EDT us Karo [place] Bishop MANAGER OF CUSTOMER BILLING LAB BLOOD BKR ORDERABLES Final Result [facility] [address] [place] [address] * (ABNORMAL) CBC and differential (12/16/2024 3:09 PM EDT) WBC 6.03 4.00 - 11.00 K/uL [facility] RBC 4.40(L) 4.50 - 5.90 M/uL [facility] HGB 13.2(L) 13.5 - 17.5 g/dL [facility] HCT 39.9(L) 41.0 - 53.0 % [facility] PLT 261 150 - 450 K/uL [facility] MCV 90.7 80.0 - 100.[address] [facility] MCH 30.0 27.0 - 31.[address] [facility] MCHC 33.1 32.0 - 36.0 g/dL [facility] RDW 13.3 11.5 - 14.5 % [facility] MPV 10.3 8.4 - 12.[address] [facility] NRBC 0.00 0.00 /[address] [facility] ABSOLUTE NRBC 0.00 0.00 K/uL [facility] DIFF METHOD Auto [facility] NEUTS 34.7(L) 48.0 - 76.0 % [facility] LYMPHS 52.6(H) 18.0 - 41.0 % [facility] MONOS 8.8 4.0 - 11.0 % [facility] EOS 3.0 0.0 - 5.0 % [facility] BASOS 0.7 0.0 - 1.5 % [facility] % IMMATURE GRANS 0.2 0.0 - 0.9 % [facility] ABSOLUTE NEUTS 2.10 1.92 - 7.60 K/uL [facility] ABSOLUTE LYMPHS 3.17 0.72 - 4.10 K/uL [facility] ABSOLUTE MONOS 0.53 0.16 - 1.10 K/uL [facility] ABSOLUTE EOS 0.18 0.00 - 0.50 K/uL [facility] ABSOLUTE BASOS 0.04 0.00 - 0.15 K/uL [facility] ABS IMMATURE GRANS 0.01 0.00 - 0.09 K/uL [facility] Blood 12/16/2024 3:09 PM EDT 12/16/2024 5:03 PM EDT Karo Bishop MANAGER OF CUSTOMER BILLING LAB BLOOD BKR ORDERABLES Final Result [address] [address] * Type and Screen (ABO,Rh,Antibody Screen) (12/16/2024 3:09 PM EDT) Expiration Date of Sample 01/15/2025 11:[address] [facility] ABO B 12/16/2024 4:[address] [facility] Rh Positive 12/16/2024 4:59 PM EDT [facility] Resulting Agency [facility] Antibody Screen Negative 12/16/2024 5:[address]T [facility] 12/16/2024 3:09 PM EDT 12/16/2024 4:06 PM EDT Karo Bishop MANAGER OF CUSTOMER BILLING LAB BLOOD BANK TEST ORDER NOREEN Final Result [address] [address] * Magnesium (12/16/2024 3:09 PM EDT) MAGNESIUM 2.1 1.7 - 2.4 mg/dL [facility] 12/16/2024 3:09 PM EDT 12/16/2024 4:54 PM EDT Karo Bishop [facility] LAB BLOOD BKR ORDERABLES Final Result [address] [address] * Hemoglobin A1c (12/16/2024 3:09 PM EDT) HEMOGLOBIN A1C 5.5 4.3 - 5.6 % [facility] Comment:HbA1c levels 5.7-6.4 % represent pre-diabetes, indicating impaired glucose control and an increased risk of developing diabetes compared with lower HbA1c levels. The diagnostic HbA1c level for diabetes is 6.5% or greater. CALC MEAN BLD GLUC 111 mg/dL [facility] Comment:There is no estabs [facility] normal range for the Calculated Mean Blood Glucose (CMBG), however a HbA1c of 5.6% (upper limit of normal) represents a CMBG of 114 mg/dL. The diagnostic hemoglobin A1c level for diabetes is greater than or equal to 6.5% which represents a CMBG greater than or equal to 140 mg/dL. 12/16/2024 3:09 PM EDT 12/16/2024 5:03 PM EDT us Karo Bishop MANAGER OF CUSTOMER BILLING LAB BLOOD BKR ORDERABLES Final Result [facility] [address] [place] [address] * ECG 12-LEAD (12/16/2024 2:30 PM EDT) Systolic Blood Pressure [facility] Diastolic Blood Pressure [facility] Ventricular Rate EKG/MIN 59 BPM [facility] Atrial Rate 59 BPM [facility] ME Interval 162 ms [facility] QRS Duration 100 ms [facility] QT Interval 402 ms [facility] QTC Interval 397 ms [facility] P Fall Branch 66 degrees [facility] R Wave Fall Branch -19 degrees [facility] T Wave Fall Branch 38 degrees [facility] 12/16/2024 2:30 PM EDT 12/20/2024 10:50 AM EST Narrative [facility] - 12/20/2024 10:50 AM EST LOC: [facility] - CARDIAC SURG DX: PRE-OP REF: MITRA DIAZ SINUS BRADYCARDIA TRACING IS WITHIN NORMAL LIMITS NO PREVIOUS ECGS AVAILABLE Mitra Arrieta [facility] ECG ORDERABLES Fi nal Result [facility] * CT CARDIAC WITH AND WITHOUT CONTRAST, CT ANGIO ABDOMEN/PELVIS WITH AND WITHOUT CONTRAST (:18 PM EDT) Anatomical Region Laterality Modality Heart Computed Tomogra phy 12/12/2024 9:24 AM EDT Impressions 12/12/2024 3:55 PM EDT 1. CAD-RADS 2 / P2: Mild (25-49%) non-obstructive coronary artery atherosclerosis.There are no significant luminal stenoses. 2. Preserved global and regional resting left ventricular systolic function. 3. Postoperative changes of aortic root sparing jane-arch replacement. 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 Dissection flap extends into the brachiocephalic, right subclavian, and right common carotid arteries. 4. Aneurysmal descending thoracic aorta measuring up to 5.9 cm, increased from 5.6 cm on the prior CT from 10/31/2024. Aneurysmal abdominal aorta (3.5 cm). Dilated right common iliac artery (1.7 cm). Expert Consensus Management for Coronary Artery Disease: CAD-RADS 2: Consider non-atherosclerotic causes of symptoms. Risk factor modification and preventive pharmacotherapy. Risk factor modification and preventive pharmacotherapy. ATTESTATION: IZo as teaching physician, have reviewed the images for this case and if necessary edited the report originally created by Chilango Simmons. Narrative 12/12/2024 3:[address] CARDIAC (CORONARY) WITH AND WITHOUT CONTRAST, CT ANGIO ABD/PELVIS WITH AND WITHOUT CONTRAST Referring clinician's provided indication for this examination in Epic: * Pre- op, low risk surgery TECHNIQUE: Axial prospectively ECG-triggered images were obtained without contrast. Contrast enhanced ECG-synchronized CT angiography of the heart and coronary arteries was performed, including 3D image postprocessing. Multiphase data was acquired at multiple phases of the R-R interval . Multiplanar post processing and 3D volume rendering were performed and interpreted. A maximum width full field of view was also reconstructed and reviewed. Additionally multidetector CTA of the chest, abdomen and pelvis was performed before and after administration of intravenous contrast using tailored dose modulation techniques. Images were reconstructed in the axial, coronal, and sagittal planes, including angiographic image post-processing. COMPARISON: CT CHEST OUTSIDE (NO INTERPRETATION) REPORTING SYSTEM: Coronary findings (vessels =>1.5 mm diameter) are reported according to the CAD-RADS 2.0 reporting system (SCCT 2021) on a per-patient basis for the clinically most relevant (usually highest-grade) stenosis: Stenosis degree: 0 (no stenosis) to 5 (occlusion) Plaque burden: P1 - mild amount, P2 - moderate amount, P3 - severe amount, P4 - extensive amount Modifiers: N (non-diagnostic study), HRP (high-risk plaque), S (stent), G (graft), E (exceptions to atherosclerosis) [email or web address]/article/[email or web address]/fulltext FINDINGS: CORONARY: Coronary CTA: The quality of the exam is excellent. The left and right coronaries have normal origins. The coronary circulation is co-dominant. Left Main: The left main coronary artery trifurcates into the LAD, LCx, and Ramus Intermedius. There is small amount of calcified plaque resulting in minimal stenosis. Left Anterior Descending (LAD): The LAD wraps around the apex. There is superficial myocardial bridging of the mid segment. There is no plaque or stenosis. Left Circumflex (LCX): The left circumflex is a medium sized vessel. It gives rise to 3 obtuse marginal branches. There is no plaque or stenosis. Ramus Intermedius: It is a medium sized vessel. There is no plaque or stenosis. Right Coronary Artery (RCA): The RCA is a dominant vessel that gives rise to the PDA and PLV branches. There is small amount of partially calcified plaque resulting in mild stenosis. Total Coronary Plaque [place]: The overall coronary artery calcium score is 101. The Agatston score for each vessel is as follows: Left Main: 66.3 Left Anterior Descendin Left Circumflex: 0 Right Coronary Artery: 35 Overall there is a medium amount of plaque. NON-CORONARY CARDIAC FINDINGS: Chambers: The left atrium is normal in size and measures 2.0 cm. The right atrium is normal in size The right ventricle is normal in size. The left ventricle is normal in size. There is normal left ventricular systolic function. There is no evidence of left atrial or other intracardiac thrombus. Myocardium: Normal left ventricular thickness. Valves: Postoperative changes of aortic valve resuspension. Trileaflet aortic valve without calcifications. Normal mitral valve. Pericardium: No pericardial effusion, calcification or thickening. VASCULAR: Aorta: Postoperative changes of root sparing jane-arch replacement. Redemonstration of chronic dissection flap extending proximally from the aortic arch and distally into the left common iliac artery. The thoracoabdominal aortic dissection flap demonstrates multifocal fenestrations with contrast opacification of the false lumen. The dissection flap extends into the brachycephalic artery, right subclavian artery, and right common carotid arteries. The left renal and inferior mesenteric arteries are seen arising from the false lumen. No aortic rupture wall thickening or perivascular inflammation. Sinus of Valsalva: Aneurysmal. Ascending aorta: Replaced Arch: Left sided, 3 vessel. Descending thoracic aorta: Chronic dissection flap with nonocclusive thrombus.. Descending aorta is dilated to 6.5 cm. Contrast extravasation: None. Pseudoaneurysm: None. Hematoma: None. Brachiocephalic trunk: Dissection flap present. No stenosis, aneurysm , or occlusion. Right subclavian artery: Dissection flap present. No stenosis, aneurysm , or occlusion. Proximal segment of the left common carotid artery: . No stenosis, aneurysm, dissection, or occlusion. Left subclavian artery: Chronic dissection flap. No stenosis, aneurysm, dissection, or occlusion. Abdominal aorta: Aneuyrsmal. Celiac axis: No stenosis, aneurysm, dissection, or occlusion. Superior mesenteric artery: No stenosis, aneurysm, dissection, or occlusion. Right renal artery: . No stenosis, aneurysm, dissection, or occlusion. Left renal artery: No stenosis, aneurysm, dissection, or occlusion. Inferior mesenteric artery: No stenosis, aneurysm, dissection, or occlusion. Right common iliac: No stenosis, aneurysm, dissection, or occlusion. Right external iliac: Calcified and noncalcified plaque resulting to mild stenosis. No aneurysm, dissection, or occlusion. Left common iliac: Calcified and noncalcified plaque results in mild to moderate stenosis of the false lumen. Left external iliac: No stenosis, aneurysm, dissection, or occlusion. Measurements are as follows (largest diameter short-axis to the centerline): Sinus of Valsalva: 5.1 x 5.5 x 5.7 cm similar to the prior CT from 10/31/2024 Sinotubular junction: 29 cm Ascending aorta: Replaced Aortic arch: 3.4 x 3.9 cm Descending aorta: 5.5 x 5.9 cm, compared to the prior CT from 10/31/2024 where it measured 5.2 x 5.6 cm Proximal abdominal aorta: 3.2 x 3.5 cm Juxtarenal aorta: 2.5 x 2.6 cm Infrarenal aorta: 2.1 x 2.3 Right Common Iliac: 1.6 x 1.7 cm Left Common Iliac: 1.3 x 1.4 cm VEINS: No venous thrombosis. NONVASCULAR: Devices/Tubes/Lines: None. Lungs: 0.4 cm left lower lung subpleural nodularity (20:253), which may represent an intrapulmonary nodule. Pleura: No pleural effusion or pneumothorax. Mediastinum: No thyroid nodules.. The main pulmonary artery is normal in caliber. Although contrast opacification was not optimized for pulmonary artery evaluation, there is no evidence of central filling defect. Trace pericardial effusion. Lymph Nodes: Right lower paratracheal node measuring up to 1.0 cm (20:115), possibly reactive. Liver: No focal lesions. Biliary: No biliary duct dilatation. Gallbladder is noninflamed. Spleen: No splenomegaly or focal stomach lesions. Pancreas: No ductal dilatation, peripancreatic fluid, or stranding. Adrenal Glands: No nodules. Kidneys/Ureters: No stones or hydronephrosis. Subcentimeter renal hypodensities that are too small to characterize. Bowel: No bowel obstruction. Scattered fluid-filled small bowel loops. Peritoneum/Retroperitoneum: No masses, pneumoperitoneum, or fluid. Lymph Nodes: Subcentimeter para-aortic and itzel hepatis lymph nodes. Pelvic Organs/Bladder: No mass. Bones/Soft Tissues: No destructive osseous lesions. Stable poststernotomy changes. Multilevel lumbar spine facet arthropathy, most pronounced within the lower lumbar spine. Procedure Note Zo Do Said, [facility] - 12/12/2024 CT CARDIAC (CORONARY) WITH AND WITHOUT CONTRAST, CT ANGIO ABD/PELVIS WITHAND WITHOUT CONTRAST Referring clinician's provided indication for this examination in Epic: *Pre-op, low risk surgery TECHNIQUE: Axial prospectively ECG-triggered images were obtained withoutcontrast. Contrast enhanced ECG-synchronized CT angiography of the heartand coronary arteries was performed, including 3D image postprocessing.Multiphase data was acquired at multiple phases of the R-R interval .Multiplanar post processing and 3D volume rendering were performed andinterpreted. A maximum width full field of view was also reconstructedand reviewed. Additionally multidetector CTA of the chest, abdomen andpelvis was performed before and after administration of intravenouscontrast using tailored dose modulation techniques. Images werereconstructed in the axial, coronal, and sagittal planes, includingangiographic image post-processing. COMPARISON: CT CHEST OUTSIDE (NO INTERPRETATION) REPORTING SYSTEM: Coronary findings (vessels =>1.5 mm diameter) arereported according to the CAD-RADS 2.0 reporting system (SCCT 2021) on aper-patient basis for the clinically most relevant (usually highest-grade)stenosis: Stenosis degree: 0 (no stenosis) to 5 (occlusion) Plaque burden: P1 - mild amount, P2 - moderate amount, P3 - severe amount,P4 - extensive amount Modifiers: N (non-diagnostic study), HRP (high-risk plaque), S (stent), G(graft), E (exceptions to atherosclerosis) [email or web address]/[email or web address]/fulltext FINDINGS: CORONARY: Coronary CTA: The quality of the exam is excellent. The left and right coronaries have normal origins. The coronary circulation is co-dominant. Left Main: The left main coronary artery trifurcates into the LAD, LCx, and RamusIntermedius. There is small amount of calcified plaque resulting in minimal stenosis. Left Anterior Descending (LAD): The LAD wraps around the apex. There is superficial myocardial bridging ofthe mid segment. There is no plaque or stenosis. Left Circumflex (LCX): The left circumflex is a medium sized vessel. It gives rise to 3 obtusemarginal branches. There is no plaque or stenosis. Ramus Intermedius: It is a medium sized vessel. There is no plaque or stenosis. Right Coronary Artery (RCA): The RCA is a dominant vessel that gives rise to the PDA and PLVbranches. There is small amount of partially calcified plaque resulting in mildstenosis. Total Coronary Plaque [place]: The overall coronary artery calcium score is 101. The Agatston score for each vessel is as follows: Left Main: 66.3 Left Anterior Descendin Left Circumflex: 0 Right Coronary Artery: 35 Overall there is a medium amount of plaque. NON-CORONARY CARDIAC FINDINGS: Chambers: The left atrium is normal in size and measures 2.0 cm. The rightatrium is normal in size The right ventricle is normal in size. The leftventricle is normal in size. There is normal left ventricular systolicfunction. There is no evidence of left atrial or other intracardiacthrombus. Myocardium: Normal left ventricular thickness. Valves: Postoperative changes of aortic valve resuspension. Trileafletaortic valve without calcifications. Normal mitral valve. Pericardium: No pericardial effusion, calcification or thickening. VASCULAR: Aorta: Postoperative changes of root sparing jane-arch replacement.Redemonstration of chronic dissection flap extending proximally from theaortic arch and distally into the left common iliac artery. Thethoracoabdominal aortic dissection flap demonstrates multifocalfenestrations with contrast opacification of the false lumen. Thedissection flap extends into the brachycephalic artery, right subclavianartery, and right common carotid arteries. The left renal and inferiormesenteric arteries are seen arising from the false lumen. No aortic rupture wall thickening or perivascular inflammation. Sinus of Valsalva: Aneurysmal. Ascending aorta: Replaced Arch: Left sided, 3 vessel. Descending thoracic aorta: Chronic dissection flap with nonocclusivethrombus.. Descending aorta is dilated to 6.5 cm. Contrast extravasation: None. Pseudoaneurysm: None. Hematoma: None. Brachiocephalic trunk: Dissection flap present. No stenosis, aneurysm , orocclusion. Right subclavian artery: Dissection flap present. No stenosis, aneurysm ,or occlusion. Proximal segment of the left common carotid artery: . No stenosis,aneurysm, dissection, or occlusion. Left subclavian artery: Chronic dissection flap. No stenosis, aneurysm,dissection, or occlusion. Abdominal aorta: Aneuyrsmal. Celiac axis: No stenosis, aneurysm, dissection, or occlusion. Superior mesenteric artery: No stenosis, aneurysm, dissection, orocclusion. Right renal artery: . No stenosis, aneurysm, dissection, or occlusion. Left renal artery: No stenosis, aneurysm, dissection, or occlusion. Inferior mesenteric artery: No stenosis, aneurysm, dissection, orocclusion. Right common iliac: No stenosis, aneurysm, dissection, or occlusion. Right external iliac: Calcified and noncalcified plaque resulting to mildstenosis. No aneurysm, dissection, or occlusion. Left common iliac: Calcified and noncalcified plaque results in mild tomoderate stenosis of the false lumen. Left external iliac: No stenosis, aneurysm, dissection, or occlusion. Measurements are as follows (largest diameter short-axis to thecenterline): Sinus of Valsalva: 5.1 x 5.5 x 5.7 cm similar to the prior CT from10/31/2024 Sinotubular junction: 29 cm Ascending aorta: Replaced Aortic arch: 3.4 x 3.9 cm Descending aorta: 5.5 x 5.9 cm, compared to the prior CT from 10/31/2024where it measured 5.2 x 5.6 cm Proximal abdominal aorta: 3.2 x 3.5 cm Juxtarenal aorta: 2.5 x 2.6 cm Infrarenal aorta: 2.1 x 2.3 Right Common Iliac: 1.6 x 1.7 cm Left Common Iliac: 1.3 x 1.4 cm VEINS: No venous thrombosis. NONVASCULAR: Devices/Tubes/Lines: None. Lungs: 0.4 cm left lower lung subpleural nodularity (20:253), which mayrepresent an intrapulmonary nodule. Pleura: No pleural effusion or pneumothorax. Mediastinum: No thyroid nodules.. The main pulmonary artery is normal incaliber. Although contrast opacification was not optimized for pulmonaryartery evaluation, there is no evidence of central filling defect. Tracepericardial effusion. Lymph Nodes: Right lower paratracheal node measuring up to 1.0 cm(20:115), possibly reactive. Liver: No focal lesions. Biliary: No biliary duct dilatation. Gallbladder is noninflamed. Spleen: No splenomegaly or focal stomach lesions. Pancreas: No ductal dilatation, peripancreatic fluid, or stranding. Adrenal Glands: No nodules. Kidneys/Ureters: No stones or hydronephrosis. Subcentimeter renalhypodensities that are too small to characterize. Bowel: No bowel obstruction. Scattered fluid-filled small bowel loops. Peritoneum/Retroperitoneum: No masses, pneumoperitoneum, or fluid. Lymph Nodes: Subcentimeter para-aortic and itzel hepatis lymph nodes. Pelvic Organs/Bladder: No mass. Bones/Soft Tissues: No destructive osseous lesions. Stable poststernotomychanges. Multilevel lumbar spine facet arthropathy, most pronounced withinthe lower lumbar spine. IMPRESSION: 1. CAD-RADS 2 / P2: Mild (25-49%) non-obstructive coronary arteryatherosclerosis.There are no significant luminal stenoses. 2. Preserved global and regional resting left ventricular systolicfunction. 3. Postoperative changes of aortic root sparing jane-arch replacement.Chronic dissection flap extending from the aortic arch into the leftcommon iliac artery. Dissection flap extends into the brachiocephalic,right subclavian, and right common carotid arteries. 4. Aneurysmal descending thoracic aorta measuring up to 5.9 cm, increasedfrom 5.6 cm on the prior CT from 10/31/2024. Aneurysmal abdominal aorta(3.5 cm). Dilated right common iliac artery (1.7 cm). Expert Consensus Management for Coronary Artery Disease: CAD-RADS 2: Consider non-atherosclerotic causes of symptoms. Risk factormodification and preventive pharmacotherapy. Risk factor modification andpreventive pharmacotherapy. ATTESTATION: I, Zo Do as teaching physician, have reviewed theimages for this case and if necessary edited the report originally createdby Chilango Simmons. us Krao Bishop CNP IMG CT CARDIAC Final Res ult * Outside Procedure (11/08/2024) us Scanning Interface Provider PROCEDURE/MINOR SURG ICAL PERFORMABLES Final Result * CT Chest Outside (No Interpretation) (10/31/2024 12:00 AM EDT) Narrative [facility] IMG INTERFACES - 11/08/2024 9:23 AM EDT This study is for PACS storage only and not for interpretation. us Doron LOZANO IMG OUTSIDE IMAGING W/OUT INTERPRETATION Final Result [facility] IMG INTERFACES * Outside Imaging Report Only (10/14/2024) us Scanning Interface Provider IMG XR CHEST Mayra l Result * Outside Imaging Report Only (10/14/2024) us Scanning Interface Provider IMG XR CHEST Mayra l Result * Outside Procedure (10/14/2024) us Scanning Interface Provider PROCEDURE/MINOR SURG ICAL PERFORMABLES Final Result * US Cardiac Outside (No Interpretation) (09/30/2024 12:00 AM EDT) Narrative [facility] IMG INTERFACES - 10/14/2024 9:43 AM EDT This study is for PACS storage only and not for interpretation. us Doron LOZANO IMG OUTSIDE IMAGING W/OUT INTERPRETATION Final Result [facility] IMG INTERFACES from Last 3 Months Additional Health Concerns Active Problems Noted Date Diagnosed Date Autogenerated Problem 12/19/2024 Insurance [facility] Address: [address] [place] [address] JEAN PIERRE MARTELL [phone] Advance Directives For more information, please contact: [phone] (9AM - 5PM [facility], Thursday-Thursday) Documents on File Type Date Recorded Patient Fire Watchman Expl anation Healthcare Proxy 12/09/2024 5:11 PM Care Teams Final Inspector Motorcyles Relationship Specialty Start Date End Date Dangelo Huber MD [address] [place] [phone] PCP - General Family Medicine 12/09/24 Joel Armando MD [address] [place] [phone] Thoracic Surgery 10/13/24 Doron Whitley MBBS [address] [place] [phone] [email or web address] Cardiothoracic Surgery 10/13/24 Additional Source Comments The information contained in this document represents components of the legal health record. It is not the complete legal health record.[facility]
--- OUTSIDE RECORDS SUMMARY | 2024-12-30 19:31 | XMS_ITS | Encounter Summary ---
Author Organization [facility] Address [address] [place] [address] Phone Care Team Providers Care Road Builder Name Role Phone Joel Armando MD Unavailable [phone] Doron Whitley Unavailable [phone] Dangelo Huber MD Primary Care Provider Encounter Details Date Type Department Care Team (Late st Contact Info) Description 12/30/2024 Telephone [facility] Division of Cardiac Surgery [address], [address] [place] [address] Aiden Miller, MOLD PRESS OPERATOR [address] [phone] [email or web address] Social History Tobacco Use Types Packs/Day Years [...] PM EDT documented as of this encounter Progress Notes * Aiden Miller CNP - 12/30/2024 1:02 PM EST Called patient to give them their 0530 am arrival time for cardiac surgery on Thursday01/02/2025. Patient was instructed to report to [facility]. Patient agreed to the plan. Ronald Miller CNP [facility] Cardiac Surgery documented in this encounter Plan of Treatment Upcoming Encounters Date Type Department Care Team (Latest Contact Info) Description 01/02/2025 Procedure Pass [facility] PERIOPERATIVE DEPT [address] [place] [phone] 01/02/2025 7:30 AM EST Hospital Encounter [facility] PERIOPERATIVE DEPT [address] [place] [phone] Doron Whitley MBBS [address] [place] [phone] [email or web address] 01/02/2025 7:30 AM EST Anesthesia Event [facility] PERIOPERATIVE DEPT [address] [place] [phone] Cherrie Hall MD [address] [place] [phone] [email or web address] 01/02/2025 7:30 AM EST - 01/02/2025 8:44 PM EST Surgery [facility] PERIOPERATIVE DEPT [address] [place] [phone] Doron Whitley MBBS [address] [place] [phone] [email or web address] REPLACEMENT ANEURYSM DESCENDING AORTA- EXTENT I [...] Optime, Admin documented as of this encounter Visit Diagnoses Not on filedocumented in this encounter Additional Health Concerns Active Problems Noted Date Diagnosed Date Autogenerated Problem 12/19/2024 documented as of this encounter Care Teams Road Builder Relationship Specialty Start Date End Date Dangelo Huber MD [address] [place] [phone] PCP - General Family Medicine 12/09/24 Joel Armando MD [address] [place] [phone] Thoracic Surgery 10/13/24 Doron Whitley MBBS [address] [place] [phone] [email or web address] Cardiothoracic Surgery 10/13/24 documented as of this encounter Additional Source Comments The information contained in this document represents components of the legal health record. It is not the complete legal health record.[facility]
--- OUTSIDE RECORDS SUMMARY | 2024-12-30 19:31 | XMS_ITS | Encounter Summary ---
Author Organization [facility] Address [address] [place] [address] Phone Care Team Providers Care Bingo Manager Name Role Phone Maximino Florez MD Primary Care Provider Joel Armando MD Unavailable Doron Whitley Unavailable [phone] Dangelo Huber MD Primary Care Provider Encounter Details Date Type Department Care Team (Late st Contact Info) Description 11/17/2024 Procedure Pass [facility] CT, [place] [address] [facility], 2nd [address], [address] [place] [address] Social History Tobacco Use Types Packs/Day Years [...] (Latest Contact Info) Description 01/02/2025 Procedure Pass [facility] PERIOPERATIVE DEPT [address] [place] [phone] 01/02/2025 7:30 AM EST Hospital Encounter [facility] PERIOPERATIVE DEPT [address] [place] [phone] Doron Whitley MBBS [address] [place] [phone] [email or web address] 01/02/2025 7:30 AM EST Anesthesia Event [facility] PERIOPERATIVE DEPT [address] [place] [phone] Cherrie aHll MD [address] [place] [phone] [email or web address] 01/02/2025 7:30 AM EST - 01/02/2025 8:44 PM EST Surgery [facility] PERIOPERATIVE DEPT [address] [place] [phone] Doron Whitley MBBS [address] [place] [phone] [email or web address] REPLACEMENT ANEURYSM DESCENDING AORTA- EXTENT I Scheduled Procedures Name Priority Associated Diagnoses Date/Ti hi REPAIR ANEURYSM DESCENDING AORTA Descending aortic aneurysm 01/02/2025 7:30 AM EST FLUOROSCOPY GUIDED PLACEMENT DRAIN LUMBAR SPINE Descending aortic aneurysm 01/02/2025 7:30 AM EST documented as of this encounter Visit Diagnoses Not on filedocumented in this encounter Care Teams Bingo Manager Relationship Specialty Start Date End Date Maximino Florez MD [facility] [place] [address] PCP - General Internal Medicine 10/13/24 12/08/24 Dangelo Huber MD [address] [phone] PCP - General Family Medicine 12/09/24 Joel Armando MD [address] [place] [address] Thoracic Surgery 10/13/24 Doron Whitley MBBS [address] [place] [phone] [email or web address] Cardiothoracic Surgery 10/13/24 documented as of this encounter Additional Source Comments The information contained in this document represents components of the legal health record. It is not the complete legal health record.[facility]
== END 2024-12-30 14:06 | disposition home or self-care (01) ==
LOC: HO.HMCFMS 13:18
PROVIDERS: PCP Student in an Organized Health Care Education/Training Program; Visit Provider Student in an Organized Health Care Education/Training Program
DX: Z23 Encounter for immunization (principal)

== ENCOUNTER 2024-12-30 13:17 | Outpatient (REF) | payer OTHER, SELFPAY ==
[2024-12-30 18:14] LABS: MANUAL DIFF FLAG NO
[2024-12-30 18:23] LABS: Appearance Urine Cloudy; Glucose Urine UA Negative (Negative); PH 6.0 (5.0-9.0); Specific Gravity - Urine 1.025 (1.005-1.025)
[2024-12-30 18:37] LABS: Hematocrit 41.2 % (42.0-52.0); Hemoglobin 13.8 g/dl (14.0-18.0); Imm Gran Abs Auto 0.02 X10*3/uL (0.00-0.03); Imm Gran Pct Auto 0.3 % (0.0-0.4); Lymphocytes Absolute Auto 2.7 X10*3/uL (1.2-4.9); Mean Corpuscular HGB Conc 33.5 g/dl (31.0-36.0); Mean Corpuscular Hemoglobin 29.7 pg (27.0-33.0); Mean Corpuscular Volume 88.8 fL (80.0-98.0); NRBC Abs Auto 0.000 X10*3/uL (0.0-0.012); NRBC Pct Auto 0.0 /100WBC (0.0-0.2); Platelet Count 240 X10*3/uL (160-400); Red Blood Count 4.64 X10*6/uL (4.60-5.80); White Blood Count 6.6 X10*3/uL (4.8-10.8)
[2024-12-30 18:56] LABS: Alanine Aminotransferase 24 U/L (0-40); Albumin Level 4.7 g/dL (3.5-5.0); Alkaline Phosphatase 92 U/L (39-117); Anion Gap 12 (12-20); Aspartate Amino Transferase 25 U/L (5-37); Blood Urea Nitrogen 20 mg/dL (9-16); Calcium 9.2 mg/dL (8.4-10.2); Carbon Dioxide 27 mmol/L (22-29); Chloride 106 mmol/L (96-108); Cholesterol 157 mg/dL (<200); Estimated Glomerular Filt Rate > 60; HDL Cholesterol 39 mg/dL (>40); Magnesium 2.2 mg/dL (1.6-2.6); Potassium 3.9 mmol/L (3.3-5.1); Sodium 141 mmol/L (135-145); Total Protein 7.7 g/dL (6.5-8.0); Triglycerides 94 mg/dL (<150)
[2024-12-30 19:13] LABS: Folate 10.5 ng/mL (> or = 4.0); Vitamin B12 885 pg/mL (200-900)
[2024-12-30 19:45] LABS: Free T4 (Free Thyroxine) 1.20 ng/dL (0.71-1.85)
[2024-12-31 08:37] LABS: HBS Num1 1.89 mIU/mL (0-7.99); HBsAGNum1 0.52 S/CO (0.00-0.99); HIV Num 1 0.05 S/CO (0.00-0.99); Hepatitis B Surface Antigen Negative (Negative); ~HepC Num1 0.10 S/CO (0.00-0.79); ~Hepatitis B Surface Antibody NONREACTIVE (Nonreactive); ~Hepatitis C Antibody Nonreactive (Nonreactive)
[2025-01-05 00:09] LABS: VITAMIN D (1,25 OH) D3 68 pg/mL; Vit D (1,25-Dihydroxy) Total 68 pg/mL (18-72); Vitamin D (1,25 OH) D2 <8 pg/mL
== END 2024-12-30 13:18 | disposition home or self-care (01) ==
LOC: HO.HKASLDS 13:17
PROVIDERS: PCP Student in an Organized Health Care Education/Training Program; Visit Provider Student in an Organized Health Care Education/Training Program
DX: I10 Essential (primary) hypertension (principal); I71.010 Dissection of ascending aorta; E66.9 Obesity, unspecified; Z13.1 Encounter for screening for diabetes mellitus; Z28.21 Immunization not carried out because of patient refusal; Z68.31 Body mass index [BMI] 31.0-31.9, adult
CPT/HCPCS: 36415; 80053; 80061; 81003; 82607; 82652; 82746; 83036; 83735; 84439; 84443; 85025; 86706; 86803; 87340; 87389; 90471; 96127

== ENCOUNTER 2025-01-16 09:31 | Outpatient (AMB) | payer OTHER, SELFPAY ==
--- OUTSIDE RECORDS SUMMARY | 2025-01-11 23:59 | XMS_ITS | Continuity of Care Document ---
Author Organization [facility] Cardiac Sunil mindy Address [address] [place] [address] [place] [address]- Care Team Providers Care Bookkeeping Machine Operator Name Role Phone Dangelo Huber MD Primary Care Physician [place] [facility] [place]): [place] 01/11/25 [facility] [address] [place] [address] Drive [address] [place], [place] [address] En[facility] Type: Triage Allergies, Adverse Reactions, Alerts Substance Criticality Severity Reaction Reaction Severity Status lisinopril Angioedema Active Immunizations Given and Recorded Vaccine Date Status Refusal Reason tetanus-diphtheria toxoids (Td) 09/03/23 Given SARS-CoV-2 (COVID-19) mRNA BNT-162b2 vac 11/20/20 Recorded SARS-CoV-2 (COVID-19) mRNA BNT-162b2 vac 10/30/20 Recorded Medications amLODIPine 10 mg oral tablet 10 mg, 1, tablet, By Mouth, Daily, # 90 tablet, Refills 3, Tot. Refills 3, Maintenance, 11/07/24 9:22:00 AM EDT, Route to Pharmacy Electronically, [facility]/pharmacy #[id number], Partial fill upon patient requestif the prescription is for a schedule II opioid drug., 171, cm, 08/22/24 13:51:00 EDT, Height, 93.7, kg, 06/14/24 7:57:00 EDT, Dry Weight Start Date: 11/07/24 Stop Date: 11/02/25 Status: Ordered Medication Dispense Status: Completed Quantity: 90.0 Unit: tablet Total Allowed Fills: 4 Fills Dispensed: 0 aspirin 81 mg oral delayed release tablet = 81 mg, By Mouth, Daily, # 90 tablet, 3 Refills, Maintenance, 08/22/24 1:53:00 PM EDT, EC Tablet, [facility]/pharmacy #[id number], Partial fill upon patient request if the prescription is for a schedule II opioid drug., 171, cm, 08/22/24 13:51:00 EDT, Height, 93.7, kg, 06/14/24 7:57:00 EDT, Dry Weight Start Date: 08/22/24 Status: Ordered Medication Dispense Status: Completed Quantity: 90.0 Unit: tablet Total Allowed Fills: 4 Fills Dispensed: 0 baclofen 10 mg oral tablet 10 mg, 1, tablet, By Mouth, 3 times a day, # 42 tablet, Refills 0, Tot. Refills 0, Maintenance, 08/26/23 10:05:00 AM EDT, Route to Pharmacy Electronically, [facility]/pharmacy #[id number], Partial fill upon patient request if the prescription is for a schedule II opioid drug., 171, cm, 08/18/23 14:51:00 EDT, Height, 87.5, kg, 08/18/23 3:44:00 EDT, Dry Weight Start Date: 08/26/23 Stop Date: 09/09/23 Status: Ordered Medication Dispense Status: Completed Quantity: 42.0 Unit: tablet Total Allowed Fills: 1 Fills Dispensed: 0 metoprolol 200 mg oral tablet, extended release 1 tablet = 200 mg, By Mouth, Daily, # 90 tablet, 3 Refills, Maintenance, 03/15/24 4:38:00 PM EST, ERTablet, [facility]/pharmacy #[id number], Partial fill upon patient request if the prescription is for a scheduleII opioid drug., 171, cm, 03/15/24 16:11:00 EST, Height, 100.7, kg, 03/15/24 16:11:00 EST, Dry Weight Start Date: 03/15/24 Status: Ordered Medication Dispense Status: Completed Quantity: 90.0 Unit: tablet Total Allowed Fills: 4 Fills Dispensed: 0 valsartan 80 mg oral tablet 80 mg, 1, tablet, By Mouth, Daily, # 90 tablet, Refills 3, Tot. Refills 3, Maintenance, 03/15/24 4:38:00 PM EST, Route to Pharmacy Electronically, [facility]/pharmacy #[id number], it is perfectly safe to s tart ARB in pt w ith hx of ACEI angioedema ., 171, cm, 03/15/24 16:11:00 EST, Height, 100.7, kg, 03/15/24 16 :11:00 EST, Dry Weight Start Date: 03/15/24 Status: Ordered Medication Dispense Status: Completed Quantity: 90.0 Unit: tablet Total Allowed Fills: 4 Fills Dispensed: 0 Vashe Topical Solution 475 mL, Topically, Every 12 hours, 0 Refills, Maintenance, Solution Start Date: 08/18/23 Status: Ordered Medication Dispense Status: Completed Total Allowed Fills: 1 Fills Dispensed: 0 Problem List Condition Confirmation Course Effective Dates Status Health St atus Informant Adjustment disorder with mixed anxiety and depressed mood Confirmed Active S/P aortic dissection repair 1, 2 Confirmed Active HBP (high blood pressure) Confirmed Active Obese class I Confirmed Active MUNA (obstructive sleep apnea) Confirmed Active 1Since he was discharged, he was readmitted with angioedema from Lisinopril and found to have a typeB dissection and CTA abd/pelvis revealed that the left kidney is supplied by the false lumen; the true lumen infrarenal aorta and the left common iliac artery were severely narrowed with inferior mesenteric artery supplied by false lumen; dissection flap on the celiac artery has moderate stenosis. Vascular Surgery was consulted and they recommended repeating a chest abd/pelvis CTA in 1 mo. 2acute type A and type B dissection and is s/p emergent Type A Dissection repair, Ascending and Hemiarch Replacement, AV Resuspension with Dr. Armando on 08/08/2023 Social History Social History Type Response Smoking Status Never (less than 100 in lifetime); Interested in cessation: No; Patient wants NRT during admission No entered on: 05/12/24 Sexual Orientation Self described orien tation: ; Straight or heterosexual Sex Sex Representation Male (finding) Patient Care team information Care Team Personnel Name: Dangelo Huber MD Position: Reference Physician Member Role: PCP Address: [address] [place] [address] [place] [address]- Telecom: Name: Le Donald RN Position: S ED RN W/OE and Tasks Member Role: Primary Care Nurse Name: Kala Greco RN Position: S RN Member Role: Primary Care Nurse Care Team Related Persons Name: VIRGIL LUNSFORD Name: TOYIN PETERSON Insurance Providers Guarantor name: [facility] Information #: 1 Payer: [facility] Payer Identifier: NA Member Number: [id number] Group Number: [id number] Subscriber Identifier: NA Relationship to Subscriber: self Coverage Type: Medicaid (Managed Care) Coverage Verification Date: NA Telecom: NA Address: NA
--- NOTE | 2025-01-16 09:33 | A.OFFPC_ITS ---
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 Postoperative status: The patient is recovering from a 14-hour cardiothoracic surgery performed at [facility], which involved a left axillary cut down and femoral access. The patient was discharged on multiple medications, including antibiotics, and diuretics were discontinued in the hospital. The patient has a follow-up appointment on the for staple removal and a CTA scan. This is the patient's first doctor's visit since the surgery. Anemia: Recent lab results indicate mild anemia, with hemoglobin and hematocrit being 0.2 below the normal range. Hyperbilirubinemia: The patient's total bilirubin was found to be elevated at 1.3, with a cutoff of 1.0, though other liver labs were normal. The patient still has their gallbladder. Subclinical hyperthyroidism: Lab results showed a low thyroid hormone (TSH) level with a normal free T4, indicative of subclinical hyperthyroidism. The patient denies any associated symptoms such as diarrhea, trembling, palpitations, insomnia, sweating, or hair loss. Postoperative pain: The patient has run out of lidocaine patches, which were previously used for pain around the surgical edgardo. from previous procedure The patches were provided during the hospital stay following a previous surgery, but the prescription for refills has . pt was discharged from this procedure with oxycodone. Surgical History: - Recent 14-hour cardiothoracic surgery via left axillary cut down and femoral access. - History of a prior, aortic aneurysm re pair. Medications: - Amlodipine 10 mg - Amoxicillin-clavulanate for seven days - Aspirin 325 mg - Atenolol 50 mg - Losartan 25 mg - Oxycodone for pain - Acetaminophen 325 mg Social History: - Functional Status: The patient's activ ity is restricted, with instructions to avoid lifting until cleared by the surgical team. - Employment: The patient has paperwork for medical leave from work, expected to last until April. Diagnostic Results: - Hemoglobin and hematocrit: 0.2 below t he normal range, indicating mild anemia. - Total bilirubin: 1.3 (elevated, cutoff is 1.0). - LDL cholesterol: 100 on a non-fasting sample. - Thyroid function tests: Low TSH with a normal free T4, consistent with subclinical hyperthyroidism. Past Medical History - S/P recent 14-hour cardiothoracic surg chilo - History of a prior, unspecified operat ion Health Maintenance - Cholesterol management: LDL of 100 on a non-fasting sample is considered acceptable. [facility] Medical History (Updated 01/16/25 @ 10:25 by Dangelo Huber MD) Hyperbilirubinemia Anemia Encounter for postoperative care Total bilirubin, elevated Class 1 obesity Hypertension Type 1 dissection of ascending aorta Family History Mother Cardiac arrest Father No problems noted. Social History (Updated 01/16/25 @ 09:38 by Dragan Herrera CMA) Housing: Apartment Alcohol intake: never Patient Tobacco Use Status: Never used Tobacco e-Cigarette/Vaping Use: Never Used service: No Current occupational status: employed Cognitive needs: No Hearing needs: No Vision needs: No Questionnaire Thrive Questionnaire Date Thrive assessed: 12/23/24 I am a: Patient What is your living situation today?: I have a steady place to live Within the past 12 months, did the food you bought not last and you didn't have the money to get more?: I choose not to answer this question Within the past 12 months, did you worry whether your food would run out before you got money to buy more?: I choose not to answer this question Do you have trouble paying for medicines?: No Do you have trouble getting transportation to medical appointments?: No Do you have trouble paying your heating and electricity bill?: I choose not to answer this question Do you have trouble taking care of your child, family member or friend?: No Do you have trouble with day-to-day activities such as bathing, preparing meals, shopping, managing finances, etc.?: No Are you currently unemployed and looking for a job?: No Are you interested in more education?: No Please select the resources that you would like help with: None Currently or been in a relationship where the following occur: No concerns reported THRIVE Score: 0 MAHOGANY-7 AMB Questionnaire MAHOGANY-7 Date MAHOGANY - 7 assessed: 12/30/24 Source: Developed by Drs. Alejandro Martinez, Sagrario Mills, Maxime Armenta and colleagues, with an educational karey from [employer]. Review of Systems Narrative Review of Systems - General: Denies fluid retention or swelling. - Pain: Reports mild pressure at the surgical site. - Respiratory: Denies dyspnea. - Endocrine: Denies diarrhea, trembling, palpitations, sleeping difficulties, diaphoresis, or hair loss. 10-point ROS reviewed and negative except as noted in HPI Physical exam (Primary Care) Vital Signs: Last Vital Signs Temp 98 F 01/16/25 09:38 Pulse 81 01/16/25 09:38 Resp 20 01/16/25 09:38 BP 128/65 01/16/25 09:38 Pulse Ox 98 01/16/25 09:38 Oxygen Delivery Method Room Air 01/16/25 09:38 BMI result Body Mass Index 30.3 Tobacco/Smoking Status: Tobacco use Status Tobacco use date assessed 12/30/24 01/16/25 09:34 Patient Tobacco Use Status Never used Tobacco 01/16/25 09:38 e-Cigarette/Vaping Use Never Used 01/16/25 09:41 Thrive Assessment: Date of Thrive Assessment Date Thrive assessed 12/23/24 01/16/25 09:34 Currently or been in a relationship where the following occur: No concerns reported Narrative Physical Exam General: Well-appearing, in no acute distress. Vital signs: Within normal limits. HEENT: Normocephalic, atraumatic. PERRLA, EOMI. Conjunctiva clear, sclera anicteric. Oropharynx clear, mucous membranes moist. TMs intact bilaterally. Neck: Supple, no lymphadenopathy, no thyromegaly, no JVD or carotid bruits. Cardiovascular: RRR, normal S1/S2, no murmurs, rubs, or gallops. Peripheral pulses 2+ and symmetric. No edema. Respiratory: Lungs clear to auscultation bilaterally, no wheezes, rales, or rhonchi. Normal effort. Abdomen: Soft, non-tender, non-distended. Normoactive bowel sounds. No hepatosplenomegaly, no masses. MSK: Full range of motion, no joint swelling or deformity. Normal gait. Skin: Warm, dry, intact. No rashes, lesions, or pallor. 15-16 inch horizontal sub axillary scar with edgardo in place, anterior chest wall scar from prior surgery Neuro: Alert and oriented x3. Cranial nerves II-XII intact. Strength 5/5 throughout. Sensation intact. Reflexes 2+ symmetric. Normal coordination and gait. Psych: Appropriate mood and affect. Normal judgment and insight. Coding Level of Care Code Est Pt Level 3 (06537) Diagnoses Hypertension I10 Type 1 dissection of ascending aorta I71.010 Class 1 obesity E66.9 Total bilirubin, elevated R17 Encounter for postoperative care Z48. Anemia D64.9 Hyperbilirubinemia E80.6 Assessment & Plan Assessment & Plan (1) Hypertension: Code(s): I10 - Essential (primary) hypertension Category: Medical (2) Type 1 dissection of ascending aorta: Code(s): I71.010 - Dissection of ascending aorta Category: Medical (3) Class 1 obesity: Code(s): E66.9 - Obesity, unspecified Category: Medical (4) Total bilirubin, elevated: Code(s): R17 - Unspecified jaundice Category: Medical (5) Encounter for postoperative care: Code(s): Z48.89 - Encounter for other specified surgical aftercare Category: Medical (6) Anemia: Code(s): D64.9 - Anemia, unspecified Category: Medical (7) Hyperbilirubinemia: Code(s): E80.6 - Other disorders of bilirubin metabolism Category: Medical Plan Consent Patient was informed and verbally consented to the use of an ambient scribe for clinic note documentation during this visit. Plan 1. Anemia - Iron supplements with vitamin C have been prescribed. - The patient was instructed to take the iron one hour before or two hours after breakfast. - The patient was counseled on potential side effects, including constipation and dark stools, with advice to increase water and fiber intake. 2. Hyperbilirubinemia - Additional labs have been ordered today to further evaluate the elevated total bilirubin. - The workup is to investigate for potential underlying causes such as a gallbladder stone. 3. Subclinical Hyperthyroidism - No medication will be initiated at this time as the condition is subclinical and the patient is asymptomatic. - Plan to monitor with repeat labs in three to six months. 4. Postoperative Pain - The patient was advised to call the pharmacy to determine if lidocaine patches are available [id number]. - If a prescription is needed, I will send one upon receiving a message from the patient via the patient portal. - The patient to continue using prescribed oxycodone as needed for pain. 5. Postoperative Follow-Up - A basic metabolic panel was ordered to check electrolytes following discontinuation of diuretics. - The patient was reminded of the follow-up appointment with the surgical team on the for staple removal and a CTA. - The patient was instructed to adhere to activity restrictions, specifically no heavy lifting. Discussion Notes I reviewed the patient's recent lab results, which showed mild anemia, elevated bilirubin, and subclinical hyperthyroidism. I prescribed iron supplements for the anemia and counseled the patient on administration and potential side effects. I explained that we would order further labs to investigate the elevated bilirubin and monitor the subclinical hyperthyroidism with repeat testing in 3-6 months, as the patient is currently asymptomatic. We discussed the patient's request for lidocaine patches for incisional pain. I advised the patient to first check if the patches are available [id number] and to contact me via the patient portal if a prescription is necessary, explaining that surgeons may intentionally not prescribe them to avoid masking pain which signals healing. I also ordered a basic metabolic panel to monitor electrolytes, reinforced postoperative instructions about no heavy lifting, and confirmed the patient's understanding of the follow-up plan with the surgical team. Patient Instructions - Take the new iron supplement with vitamin C, either one hour before breakfast or two hours after. - To prevent constipation from the iron, drink plenty of water and increase your fiber intake. You may use an [id number] remedy like MiraLAX if needed. - Your stool may turn dark, which is a normal side effect of iron. - Call your pharmacy and ask if you can buy lidocaine patches [id number]. - Set up your patient portal account so you can send messages to the office. If the lidocaine patches need a prescription, send a message through the portal. - Continue taking your discharged medications as prescribed. - Do not do any heavy lifting or forceful activity until your surgical team clears you. - Go for the blood tests that were ordered today. - Keep your appointment with the surgical team on the to have your edgardo removed and get a CT scan. Medical Decision Making The patient is a 54-year-old individual presenting for postoperative follow-up and review of labs after a major cardiothoracic surgery. The patient is hemodynamically stable and the surgical incision is healing well. Lab results revealed several findings requiring management. Mild anemia is being addressed with iron supplementation to optimize oxygen-carrying capacity and reduce cardiac workload during the recovery period. An isolated elevation in total bilirubin prompted an order for additional liver function tests to rule out underlying pathology, such as a gallbladder stone, especially as the patient has an intact gallbladder. The subclinical hyperthyroidism (low TSH, normal free T4) in this asymptomatic patient is best managed with watchful waiting and repeat labs in 3-6 months, as current treatment is not indicated and the finding may be transient due to the stress of recent surgery. The patient requested lidocaine patches for incisional pain. The management plan involves first determining if they are available [id number] to avoid an unnecessary prescription, while providing a pathway for a prescription if ne eded. This approach balances patient comfort with the clinical importance of not masking pain entirely, as it can be an indicator of healing or complications. A basic metabolic panel was also ordered to monitor electrolytes post- discontinuation of diuretics in the hospital. Total Time Statement 20 min Total time spent caring for the patient today includes pre-visit chart review, documentation, review of laboratory and diagnostic imaging results, medication reconciliation, medically necessary evaluation, counseling on diagnoses, care coordination, ordering appropriate tests and medications, review of tests performed by other providers, reporting test results to the patient, and communication with other healthcare providers. Orders: Orders Bilirubin Direct Today R17 - Unspecified jaundice Gamma Glutamyl Transpeptidase Today R17 - Unspecified jaundice Basic Metabolic Panel Today Z13.9 - Encounter for screening, unspecified Medications: New ascorbic acid (vitamin C) 500 mg PO DAILY 90 tabs 0RF ferrous sulfate 325 mg PO DAILY 90 tabs 0RF
[2025-01-16 09:38] VITALS: BP 128/65; PULSE 81; RESP 20; TEMP 36.6; O2SAT 98; BMI 30.3
--- OUTSIDE RECORDS SUMMARY | 2025-01-16 11:15 | XMS_ITS | Encounter Summary ---
Author Organization [facility] Address [address] [place] [address] Phone Care Team Providers Care Regulatory Affairs Internship Name Role Phone Joel Armando MD Unavailable [phone] Doron Whitley Unavailable [phone] Dangelo Huber MD Primary Care Provider Encounter Details Date Type Department Care Team (Late st Contact Info) Description 12/16/2024 [place] [facility] [place] [address], 6th [address], [address] [place] [address] Karo Bishop, [employer]ER [address] [place] [address] [email or web address] Dyspnea, unspecified type (Primary Dx); Aneurysm [...] Upcoming Encounters Date Type Department Care Team (Late st Contact Info) Description 01/08/2025 Procedure Pass [facility] [place] [address] [facility] [place] [address] 01/08/2025 Procedure Pass [facility] [place] [address] [facility], [address] [place] [id number] 02/15/2025 12:45 PM EST Appointment [facility] - [place] [address] [place] [address], [address] [place] [phone] Doron Whitley MBBS [address] [place] [phone] [email or web address] 02/15/2025 1:30 PM EST Office Visit [facility] [place] [address] [place] [address], [address] [facility], [address] [place] [address] Doron Whitley MBBS [address] [place] [id number] [email or web address] Scheduled Orders Name Type Priority Associated Diagnoses Orde r Schedule ECG 12-LEAD ECG Routine Aneurysm Expected: 12/16/2024, Expires: 03/18/2025 documented as of this encounter Results * [...] clinician's provided indication for this examination in [facility]: Dyspnea on exertion; preoperative evaluation COMPARISON: [...] clinician's provided indication for this examination in [facility]:Dyspnea on exertion; preoperative evaluation COMPARISON: CT [...] edited the report originallycreated by Mahamed Shelby. Karo Bishop [employer] IMG XR CHEST Final Res ult * MRSA/MSSA PRE-OP PCR (12/16/2024 3:09 PM EDT) MRSA PCR SCREEN NEGATIVE FOR MRSA (Methicillin Resistant S.aureus) NEGATIVE FOR MRSA (Methicillin Resistant S.aureus) [facility] MSSA PCR SCREEN NEGATIVE FOR MSSA (Methicillin Susceptible S.aureus) NEGATIVE FOR MSSA (Methicillin Susceptible S.aureus) [facility] Comment:This test was conduc rocky as part of Pre-Operative Screening for Staphylococcus aureus. Please direct any questions regarding this result to the Ordering Provider. Nasal (Nasal) 12/16/2024 3:0 9 PM EDT 12/16/2024 4:05 PM EDT Karo Bishop [facility] LAB GENERAL ORDERABLES Fi nal Result Performing Organization Address City/[facility]/ZIP Co de Phone Number [address] [address] * PTT (12/16/2024 3:09 PM EDT) APTT 28.9 24.0 - 37.5 sec [facility] Comment:Check MAR for the ta rget range that is ordered for your patient. 12/16/2024 3:09 PM EDT 12/16/2024 4:02 PM EDT Karo Bishop [facility] LAB BLOOD BKR ORDERABLES Final Result Performing Organization Address [facility] Co de Phone Number [address] [phone] * PT-INR (12/16/2024 3:09 PM EDT) PT 11.4 10.0 - 13.0 sec [facility] INR 1.0 0.9 - 1.1 [facility] 12/16/2024 3:09 PM EDT 12/16/2024 4:02 PM EDT Karo Bishop [facility] LAB BLOOD BKR ORDERABLES Final Result Performing Organization Address [facility] Co de Phone Number [address] [phone] * Hemoglobin A1c (12/16/2024 3:09 PM EDT) HEMOGLOBIN A1C 5.5 4.3 - 5.6 % [facility] Comment:HbA1c levels 5.7-6.4 % represent pre-diabetes, indicating impaired glucose control and an increased risk of developing diabetes compared with lower HbA1c levels. The diagnostic HbA1c level for diabetes is 6.5% or greater. CALC MEAN BLD GLUC 111 mg/dL [facility] Comment:There is no establis [facility] normal range for the Calculated Mean Blood Glucose (CMBG), however a HbA1c of 5.6% (upper limit of normal) represents a CMBG of 114 mg/dL. The diagnostic hemoglobin A1c level for diabetes is greater than or equal to 6.5% which represents a CMBG greater than or equal to 140 mg/dL. 12/16/2024 3:09 PM EDT 12/16/2024 5:03 PM EDT Karo Bishop [facility] LAB BLOOD BKR ORDERABLES Final Result Performing Organization Address [facility] Co de Phone Number [place] [phone] * Magnesium (12/16/2024 3:09 PM EDT) MAGNESIUM 2.1 1.7 - 2.4 mg/dL [facility] 12/16/2024 3:09 PM EDT 12/16/2024 4:54 PM EDT Karo Bishop [facility] BLOOD BKR ORDERABLES Final Result Performing Organization Address [facility] Co de Phone Number [address] [address] * Comprehensive metabolic panel (12/16/2024 3:09 PM EDT) SODIUM 139 135 - 145 mmol/L [facility] POTASSIUM 3.8 3.4 - 5.0 mmol/L [facility] CHLORIDE 104 98 - 108 mmol/L [facility] CO2 25 23 - 32 mmol/L [facility] BUN 13 8 - 25 mg/dL [facility] CREATININE 0.95 0.60 - 1.30 mg/dL [facility] GLUCOSE 76 70 - 110 mg/dL [facility] ALBUMIN 4.4 3.3 - 5.0 g/dL [facility] TOTAL PROTEIN 7.6 6.0 - 8.3 g/dL [facility] CALCIUM 9.4 8.5 - 10.5 mg/dL [facility] ALKALINE PHOSPHATASE 85 45 - 115 U/L [facility] TOTAL BILIRUBIN 1.0 0.0 - 1.0 mg/dL [facility] AST 15 10 - 40 U/L [facility] ALT 13 10 - 55 U/L [facility] GLOBULIN 3.2 1.9 - 4.1 g/dL [facility] EGFR 96 >59 mL/min/1. 73m2 [facility] Comment:Estimated glomerular filtration rate calculated using the CKD-EPI refit equation. ANION GAP 10 3 - 17 mmol/L [facility] 12/16/2024 3:09 PM EDT 12/16/2024 4:54 PM EDT us Karo Bishop [employer] LAB BLOOD BKR ORDERABLES Final Result [address] [address] * (ABNORMAL) CBC and differential (12/16/2024 3:09 PM EDT) WBC 6.03 4.00 - 11.00 K/uL [facility] RBC 4.40(L) 4.50 - 5.90 M/uL [facility] HGB 13.2(L) 13.5 - 17.5 g/dL [facility] HCT 39.9(L) 41.0 - 53.0 % [facility] PLT 261 150 - 450 K/uL [facility] MCV 90.7 80.0 - 100.0 fL [facility] MCH 30.0 27.0 - 31.0 pg [facility] MCHC 33.1 32.0 - 36.0 g/dL [facility] RDW 13.3 11.5 - 14.5 % [facility] MPV 10.3 8.4 - 12.0 fL [facility] NRBC 0.00 0.00 /100 WBCs [facility] ABSOLUTE NRBC 0.00 0.00 K/uL [facility] DIFF METHOD Auto [facility] NEUTS 34.7(L) 48.0 - 76.0 % [facility] LYMPHS 52.6(H) 18.0 - 41.0 % [facility] MONOS 8.8 4.0 - 11.0 % [facility] EOS 3.0 0.0 - 5.0 % [facility] BASOS 0.7 0.0 - 1.5 % [facility] % IMMATURE GRANS 0.2 0.0 - 0.9 % [facility] ABSOLUTE NEUTS 2.10 1.92 - 7.60 K/uL [facility] ABSOLUTE LYMPHS 3.17 0.72 - 4.10 K/uL [facility] ABSOLUTE MONOS 0.53 0.16 - 1.10 K/uL [facility] ABSOLUTE EOS 0.18 0.00 - 0.50 K/uL [facility] ABSOLUTE BASOS 0.04 0.00 - 0.15 K/uL [facility] ABS IMMATURE GRANS 0.01 0.00 - 0.09 K/uL [facility] Blood 12/16/2024 3:09 PM EDT 12/16/2024 5:03 PM EDT Karo Bishop [facility] BLOOD BKR ORDERABLES Final Result [address] [address] * Type and Screen (ABO,Rh,Antibody Screen) (12/16/2024 3:09 PM EDT) Expiration Date of Sample 01/15/2025 11:59 PM [facility] ABO B 12/16/2024 4:59 PM EDT [facility] Rh Positive 12/16/2024 4:59 PM EDT [facility] Resulting Agency [facility] Antibody Screen Negative 12/16/2024 5:10 PM EDT [facility] 12/16/2024 3:09 PM EDT 12/16/2024 4:06 PM EDT Karo Bishop [facility] BLOOD BANK TEST ORDER NOREEN Final Result [address] [address] documented in this encounter Visit Diagnoses Diagnosis Dyspnea, unspecified type- Primary Aneurysm Other aneurysm of unspecified site Aneurysm Other aneurysm of unspecified site documented in this encounter Care Teams Regulatory Affairs Internship Relationship Specialty Start Date End Date Dangelo Huber MD [address] [address] PCP - General Family Medicine 12/09/24 Joel Armando MD [address] [place] [address] Thoracic Surgery 10/13/24 Doron Whitley MBBS [address] [place] [id number] [email or web address] Cardiothoracic Surgery 10/13/24 documented as of this encounter Additional Source Comments The information contained in this document represents components of the legal health record. It is not the complete legal health record.[facility]
--- OUTSIDE RECORDS SUMMARY | 2025-01-16 11:16 | XMS_ITS | Clinical Summary ---
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 30 tablet 2 01/11/20 25 Active aspirin 325 MG tablet Take 1 tablet (325 mg total) by mouth daily. 30 tablet 2 01/12/20 25 Active acetaminophen (TYLENOL) 325 mg tablet Take 1-2 tablets (325-650 mg total) by mouth every 6 (six) hours as needed for pain (specific location in comments). Over the counter 01/11/20 25 Active atenolol (TENORMIN) 50 mg tablet Take 1 tablet (50 mg total) by mouth 2 (two) times a day. 60 tablet 2 01/11/20 25 Active losartan (COZAAR) 25 MG tablet Take 0.5 tablets (12.5 mg total) by mouth daily. 15 tablet 2 01/12/20 25 Active lidocaine (LIDODERM) 5 % Place 1 patch onto the skin daily. Remove & Discard patch within 12 hours or as directed by MD Santoyo patch 11/28/20 25 Active oxyCODONE 5 MG immediate release tablet Take 0.5-1 tablets (2.5-5 mg total) by mouth every 8 (eight) hours as needed for pain (specific location in comments). Partial fill ok 14 tablet 01/14/20 Active amLODIPine (NORVASC) 10 MG tablet Take 10 mg by mouth daily. Discontinued aspirin 81 MG EC tablet Take 81 mg by mouth daily. 08/23/19 Discontinued(St op Taking at Discharge) metoprolol succinate (TOPROL-XL) 200 MG 24 hr tablet Take 200 mg by mouth daily. Discontinued(St op Taking at Discharge) amoxicillin-c lavulanate (AUGMENTIN) 875-125 mg per tablet Take 1 tablet (875 mg of amoxicillin total) by mouth every 12 (twelve) hours for 2 days. 4 tablet 01/11/20 oxyCODONE 5 MG immediate release tablet Take 0.5-1 tablets (2.5-5 mg total) by mouth every 8 (eight) hours as needed for pain (specific location in comments). 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, HTN Current Surgery: Left Axillary cutdown, descending aorta replacement under DHCA, left femoral cut down, cryoablation left intercostal nerves ICS 3-8 Rhythm: A-tach 140s-150s #Atrial tach - Adenosine x2 - Amio x2 - Metop IV x 1 Pump Intra op Echo: (preliminary) Pre: Normal BiV function, trace AI/MR/TR Post: Mildly reduced RV function, normal LV function, trace AI, moderate TR - Trend markers of perfusion - Epi weaned off 01/02 #HTN - BP goal normotensive SBP 120-130, clevidipine weaned off 01/04 - Home amlodipine resumed - Home Metoprolol - Continue hydralazine GI: #Nutrition: Current diet: Cardiac diet with thin liquids - Diet cleared by PIECE MEAT TRIMMER 01/04 #Ileus, resolved - Scheduled Miralax, Senna, PRN Dulcolax #Jaundice - Total Bilirubin 2.2-->5.1 --> 3.0 - trending LFTs - Consider RUQUS if continue to rise : Pre-op serum Creatinine 0.95 #Polyuria, resolved - Immediate postop UOP > 1L/hr, urine lytes, serum osmo WNL #Fluid Balance - BID Lasix 40mg PO for TBB -1L Heme: Blood products in OR: 5 units RBC, 7 units FFP, 3 units PLT, 3 Pool Cryo, 1200mL cell saver #Anticoagulation: Not clinically indicated; DVT prophylaxis Lovenox #Antiplatelet: ASA resumed Endo: Admit A1c 5.5 - no insulin needs - Endocrine/ Diabetes consult not clinically indicated ID: - Current regimen: Cefepime (01/05 - ) - Intermittent fevers 01/05, empirically started on Cefepime - Follow up infectious work-up; resp with abundant PMNs, mixed gram negative and positive organisms, UA negative, blood cx pending - Previous regimens: N/A - ICU swabs negative HBP (high blood pressure) 11/09/2024 MUNA (obstructive sleep apnea) 11/09/2024 Aortic dissection 09/15/2024 Encounters Date Type Department Care Team Description 01/13/2025 Documentation [facility] Division of Cardiac Surgery [address] [facility], 6th Floor, [address] [place] [address] Diamond Hernandez CNP 01/11/2025 Telephone VIRTUAL DEPARTMENT [address] [place] [phone] Mary Simmons MD 01/05/2025 11:15 AM EST Ancillary Procedure [facility] Imaging Bedside Ultrasound VRT [address] [place] [address] Doron Whitley MBBS 01/05/2025 Procedure Pass [facility], [place] [address] [facility], 2nd Floor, [address] [place] [address] 01/04/2025 1:55 PM EST Ancillary Procedure [facility] Imaging Bedside Ultrasound VRT [address] [place] [address] Darshana King, DELROY, DNP Doron Whitley MBBS 01/02/2025 7:30 AM EST - 01/02/2025 8:44 PM EST Surgery [facility] PERIOPERATIVE DEPT [address] [place] [address] Doron Whitley MBBS LEFT AXILLARY CUTDOWN; REPLACEMENT ANEURYSM DESCENDING AORTA left femoral cut down, flexible bronchoscopy 01/02/2025 7:23 AM EST Anesthesia Event [facility] PERIOPERATIVE DEPT [address] [place] [phone] Yonas Garcia MD Jerman, Catherine Foley, MD 01/02/2025 6:40 AM EST Ancillary Procedure [facility] Imaging Bedside Ultrasound VRT [address] [place] [address] Yonas Garcia MD Jassar, Arminder S, MBBS 01/02/2025 5:40 AM EST Ancillary Procedure [facility] Imaging Bedside Ultrasound VRT [address] [place] [address] Yonas Garcia MD Jassar, Arminder S, MBBS 01/02/2025 5:34 AM EST - 01/10/2025 1:03 PM EST Hospital Encounter [facility] [address] [place] [address] Doron Whitley MBBS Discharge Disposition: Home or Self Care 01/02/2025 Procedure Pass [facility] Cardiac US [address] [place] [address] 01/02/2025 Procedure Pass [facility] PERIOPERATIVE DEPT [address] [place] [address] 12/30/2024 Telephone [facility] Division of Cardiac Surgery [address] [place] [address], 6th Floor, [address] [place] [address] Aiden Miller CNP 12/27/2024 3:23 PM EST - 12/27/2024 11:59 PM EST Hospital Encounter X-ray, [facility] General Imaging - [place] [address] [facility], [address] [place] [address] Karo Bishop CNP Discharge Disposition: Home or Self Care 12/18/2024 Orders Only [facility] Blood Bank [address] [place] [address] Johnny Smith MD, MPH 12/16/2024 2:19 PM EDT - 12/16/2024 11:59 PM EDT Hospital Encounter [facility] Phleb ACC[address] [place] [address] Discharge Disposition: Home or Self Care 12/16/2024 Prep for Surgery [facility] Division of Cardiac Surgery [address] [place] [address], 6th Floor, [address] [place] [address] Karo Bishop CNP Dyspnea, unspecified type (Primary Dx); Aneurysm 12/16/2024 Orders Only [facility] EKG LAB VIRTUAL DEPARTMENT [address] [place] [address] Suzanne Vo Preop cardiovascular exam 12/09/2024 4:20 PM EDT - 12/09/2024 11:59 PM EDT Hospital Encounter [facility] [address] [place] [address] Karo Bishop CNP Discharge Disposition: Home or Self Care 12/09/2024 3:25 PM EDT - 12/09/2024 4:19 PM EDT Hospital Encounter [facility], [place] [address] [facility], 2nd Floor, [address] [place] [address] Karo Bishop, DELROY Discharge Disposition: Home or Self Care 12/09/2024 2:00 PM EDT Pre-Admission Testing [facility] Division of Cardiac Surgery [address] [facility], 6th Floor, [address] [place] [address] Doron Whitley MBBS Preop cardiovascular exam (Primary Dx) 11/17/2024 Procedure Pass [facility], [place] [address] [facility], 2nd Floor, [address] [place] [address] 11/17/2024 Orders Only [facility] Division of Cardiac Surgery [address] [facility], 6th Floor, [address] [place] [address] Karo Bishop, DELROY Preoperative cardiovascular examination (Primary Dx) 11/17/2024 Documentation [facility] Division of Cardiac Surgery [address] [facility], 6th Floor, [address] [place] [address] Karo Bishop CNP 11/14/2024 Documentation [facility] Division of Cardiac Surgery [address] [facility], 6th Floor, [address] [place] [address] Diamond Hernandez CNP 11/09/2024 8:45 AM EDT Office Visit [facility] Division of Cardiac Surgery [address] [facility], 6th Floor, [address] [place] [address] Doron Whitley MBBS S/P aortic dissection repair (Primary Dx) 11/09/2024 Telephone [facility] Division of Cardiac Surgery [address] [facility], 6th Floor, [address] [place] [address] Doron Whitley MBBS 11/08/2024 Ancillary Orders [facility] [address] [place] [address] Doron Whitley MBBS 11/07/2024 Telephone [facility] Division of Cardiac Surgery [address] [facility], 6th Floor, [address] [place] [address] Doron Whitley MBBS 10/31/2024 - 10/31/2024 11:59 PM EDT Hospital Encounter [facility] [address] [place] [address] Doron Whitley MBBS Discharge Disposition: Home or Self Care 10/18/2024 Telephone [facility] Division of Cardiac Surgery [address] [facility], 6th [address], [address] [place] [address] 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 Never True 01/04/2025 Within the past 6 months the food we bought just didn't last and we didn't have enough money to get more. Never True Residential Stability Answer Date Recor ded What is your housing situation today? I have laya antony 01/04/2025 How many times have you moved in the past 12 mon ths? One time 01/04/2025 Paying for Meds Answer Date Recorded Do you have trouble paying for medicines? No 01/04/2025 Paying Utility Bills Answer Date Record ed Do you have trouble paying your heating or elect ricity bill? No 01/04/2025 Transportation Answer Date Recorded Has the lack of transportati on kept you from medical appointments or from getting medications? No 01/04/2025 Digital Access Answer Date Recorded No 01/04/2025 Yes 01/04/2025 Do you have reliable internet access at home? Ye s 01/04/2025 Do you have a device (e.g., phone, tablet, computer) with a working camera? Yes 01/04/2025 Intimate Partner Violence Answer Date R ecorded Are you denied basic needs s uch as food, clothing, or medical care? No 01/04/2025 In the past 12 months have y ou been in a relationship with a person who hurts, threatens, or tries to control you? No 01/04/2025 Are you denied basic needs s uch as food, clothing, or medical care? No 01/04/2025 In the past 12 months have y ou been in a relationship with a person who hurts, threatens, or tries to control you? No 01/04/2025 Sex and Gender Information Value Date Recorded Sex Assigned at Male 11/04/2024 4:07 PM EDT Legal Sex Male 5:01 PM EDT Gender Identity Male 11/04/2024 4:07 PM EDT Sexual Orientation Straight 11/04/2024 4: 07 PM EDT Last Filed Vital Signs Vital Sign Reading Time Taken Comments Blood Pressure 123/66 01/10/2025 7:56 AM EST Pulse 90 01/10/2025 8:00 AM EST Temperature 36.1 C (96.9 F) 01/10/2025 7:56 AM EST Respiratory Rate 16 01/10/2025 3:00 AM EST Oxygen Saturation 95% 01/10/2025 3:00 AM EST Inhaled Oxygen Concentration 30% 01/07/2025 6 :19 AM EST Weight 86 kg (189 lb 8 oz) 01/10/2025 6:49 AM ES T Height 170.2 cm (5' 7 ) 01/04/2025 5:30 PM EST Body Mass Index 29.68 01/04/2025 5:30 PM EST Plan of Treatment Upcoming Encounters Date Type Department Care Team (Late st Contact Info) Description 01/08/2025 Procedure Pass [facility] - [place] [address] [facility], [address] [place] [address] 01/08/2025 Procedure Pass [facility] - [place] [address] [facility], [address]th [place] [address] 02/15/2025 12:45 PM EST Appointment [facility] [address] [facility] [address] [place] [address] Doron Whitley MBBS [address] [place] [address] [place] [address] [email or web address] 02/15/2025 1:30 PM EST Office Visit [facility] Division of Cardiac Surgery [address] [facility], 6th Floor, [address] [place] [address] Doron Whitley MBBS [address] [facility] [address] [place] [address] [email or web address] Health Maintenance Due Date Last Done Comments DEPRESSION SCREENING 1983 HEPATITIS C SCREENING 05/13/1989 HIV ONE-TIME SCREENING (18-65 YEARS) 05/13/1989 LIPID PANEL 05/13/1989 PNEUMOCOCCAL VACCINES (50+ years) (1 of 2 - PCV) 05/13/1990 COLOGUARD 05/13/2016 COLONOSCOPY 05/13/2016 COLORECTAL CANCER SCREENING 05/13/2016 FIT TEST 05/13/2016 FOBT 05/13/2016 SIGMOIDOSCOPY 05/13/2016 VIRTUAL COLONOSCOPY 05/13/2016 RSV VACCINE (1 - Risk 50-74 years 1-dose series) 05/13/2021 ZOSTER VACCINES (1 of 2) 05/13/2021 INFLUENZA VACCINE (#1) 2024 COVID-19 VACCINE (3 - season) 2024 11/20/2020, 10/30/2020 BLOOD PRESSURE 06/09/2025 12/09/2024 CREATININE LEVEL 01/10/2026 01/10/2025, , 01/08/2025, Additional history exists POTASSIUM LEVEL 01/10/2026 01/10/2025, 12/18, 01/08/2025, Additional history exists SCREENING FOR DIABETES 01/11/2028 01/10/2025, 2024 Adult Td,Tdap Booster 09/02/2033 09/03/2023 SMOKING STATUS SCREENING (Once After 26 Yrs) Completed 12/09/2024 HEPATITIS A [...] on patient's age to complete this topic Medical Devices Implanted Type Area Senior Center Director Device Identifier Shelf Expiration Date Model / Serial / Lot Graft Vascular [id number] [employer] Gelweave Aortic Woven Straight - [id number] Implanted:Qty: 1 on 01/02/2025 by Doron Whitley MBBS at [facility] SMDA Left: Axilla [employer] [address] 02/15/2027 [id number] / [id number] / [id number] Description:Implanted in lef t axilla for cannulation. Graft Vascular [id number] Gelweave Straight - [id number] Implanted:Qty: 1 on 01/02/2025 by Doron Whitley MBBS at [facility] N/A: Aorta [employer] [address] 08/16/2027 [id number] / [id number] / [id number] Procedures Procedure Name Priority Date/Time Associated Diagnosis Comments SANA COMP PROBE PLACED BY ANES W/ COLOR FLOW AND COMP DOPPLER Routine 01/16/2025 8:19 AM EST Aortic aneurysm of unspecified site, without rupture Dissection of unspecified site of aorta CBC Routine 01/11/2025 1:03 PM EST Descending aortic aneurysm URINE SEDIMENT Today 01/10/2025 12:15 PM EST URINALYSIS WITH REFLEX TO URINE CULTURE Routine 01/10/2025 12:15 PM EST RESPIRATORY CULTURE/SMEAR Routine 01/10/2025 11:13 AM EST BLOOD CULTURE, ROUTINE Routine 11:13 AM EST BLOOD CULTURE, ROUTINE Routine 8:55 AM EST XR CHEST PORTABLE Routine 01/10/2025 7:01 AM EST MAGNESIUM Routine 01/10/2025 4:26 AM EST CBC Routine 01/10/2025 4:26 AM EST BASIC METABOLIC PANEL (BMP) Routine 01/10/2025 4:26 AM EST XR CHEST PA AND LATERAL 2 VIEWS Required for discharge 01/09/2025 10:39 AM EST PTT Routine 01/09/2025 4:36 AM EST PT-INR Routine 01/09/2025 4:36 AM EST PHOSPHORUS Routine 01/09/2025 4:36 AM EST MAGNESIUM Routine 01/09/2025 4:36 AM EST LFTS (HEPATIC PANEL) Routine 01/09/2025 4:36 AM EST CBC Routine 01/09/2025 4:36 AM EST BASIC METABOLIC PANEL (BMP) Routine 01/09/2025 4:36 AM EST XR CHEST PORTABLE Routine 01/08/2025 9:42 AM EST XR CHEST PORTABLE Routine 01/08/2025 6:46 AM EST TYPE AND SCREEN (ABO, RH, ANTIBODY SCREEN) Routine 01/08/2025 4:32 AM EST TYPE AND SCREEN (ABO,RH,ANTIBODY SCREEN) Routine 01/08/2025 4:32 AM EST PTT Routine 01/08/2025 4:32 AM EST PT-INR Routine 01/08/2025 4:32 AM EST PHOSPHORUS Routine 01/08/2025 4:32 AM EST MAGNESIUM Routine 01/08/2025 4:32 AM EST LFTS (HEPATIC PANEL) Routine 01/08/2025 4:32 AM EST CBC Routine 01/08/2025 4:32 AM EST BASIC METABOLIC PANEL (BMP) Routine 01/08/2025 4:32 AM EST LACTATE (BLOOD GAS) Routine 01/07/2025 12:32 AM EST HEMOGLOBIN (BLOOD GAS) Routine 12:32 AM EST GLUCOSE (BLOOD GAS) Routine 01/07/2025 12:32 AM EST IONIZED CALCIUM Routine 01/07/2025 12:32 AM EST POTASSIUM (BLOOD GAS) Routine 01/07/2025 12:32 AM EST SODIUM, BLOOD GAS Routine 01/07/2025 12:32 AM EST ARTERIAL BLOOD GAS Routine 01/07/2025 12:32 AM EST PTT Routine 01/07/2025 12:32 AM EST PT-INR Routine 01/07/2025 12:32 AM EST PHOSPHORUS Routine 01/07/2025 12:32 AM EST MAGNESIUM Routine 01/07/2025 12:32 AM EST LFTS (HEPATIC PANEL) Routine 01/07/2025 12:32 AM EST CBC Routine 01/07/2025 12:32 AM EST BASIC METABOLIC PANEL (BMP) Routine 01/07/2025 12:32 AM EST XR CHEST PORTABLE Routine 01/06/2025 9:54 PM EST ARTERIAL BLOOD GAS Routine 01/06/2025 6:40 PM EST OXYGEN SATURATION, ARTERIAL Routine 01/06/2025 5:06 PM EST GLUCOSE (BLOOD GAS) Routine 01/06/2025 5:06 PM EST POTASSIUM (BLOOD GAS) Routine 01/06/2025 5:06 PM EST SODIUM, BLOOD GAS Routine 01/06/2025 5:06 PM EST ARTERIAL BLOOD GAS Routine 01/06/2025 5:06 PM EST PHOSPHORUS Routine 01/06/2025 5:06 PM EST MAGNESIUM Routine 01/06/2025 5:06 PM EST LFTS (HEPATIC PANEL) Routine 01/06/2025 5:06 PM EST BASIC METABOLIC PANEL (BMP) Routine 01/06/2025 5:06 PM EST POCT GLUCOSE Routine 01/06/2025 12:43 PM EST BLOOD CULTURE, ROUTINE Routine 11:59 AM EST BLOOD CULTURE, ROUTINE Routine 11:59 AM EST URINE SEDIMENT Today 01/06/2025 11:21 AM EST OXYGEN SATURATION, ARTERIAL Routine 01/06/2025 11:21 AM EST HEMOGLOBIN (BLOOD GAS) Routine 11:21 AM EST GLUCOSE (BLOOD GAS) Routine 01/06/2025 11:21 AM EST POTASSIUM (BLOOD GAS) Routine 01/06/2025 11:21 AM EST ARTERIAL BLOOD GAS Routine 01/06/2025 11:21 AM EST URINALYSIS Routine 01/06/2025 11:21 AM EST POCT GLUCOSE Routine 01/06/2025 8:55 AM EST RESPIRATORY CULTURE/SMEAR Routine 01/06/2025 7:07 AM EST LACTATE (BLOOD GAS) Routine 01/06/2025 3:17 AM EST OXYGEN SATURATION, ARTERIAL Routine 01/06/2025 3:17 AM EST HEMOGLOBIN (BLOOD GAS) Routine 3:17 AM EST GLUCOSE (BLOOD GAS) Routine 01/06/2025 3:17 AM EST IONIZED CALCIUM Routine 01/06/2025 3:17 AM EST POTASSIUM (BLOOD GAS) Routine 01/06/2025 3:17 AM EST SODIUM, BLOOD GAS Routine 01/06/2025 3:17 AM EST ARTERIAL BLOOD GAS Routine 01/06/2025 3:17 AM EST PHOSPHORUS Routine 01/06/2025 3:17 AM EST MAGNESIUM Routine 01/06/2025 3:17 AM EST CBC Routine 01/06/2025 3:17 AM EST BASIC METABOLIC PANEL (BMP) Routine 01/06/2025 3:17 AM EST XR CHEST PORTABLE Routine 01/05/2025 9:45 PM EST POCT GLUCOSE Routine 01/05/2025 7:50 PM EST LACTATE (BLOOD GAS) Routine 01/05/2025 7:50 PM EST OXYGEN SATURATION, ARTERIAL Routine 01/05/2025 7:50 PM EST GLUCOSE (BLOOD GAS) Routine 01/05/2025 7:50 PM EST IONIZED CALCIUM Routine 01/05/2025 7:50 PM EST POTASSIUM (BLOOD GAS) Routine 01/05/2025 7:50 PM EST SODIUM, BLOOD GAS Routine 01/05/2025 7:50 PM EST ARTERIAL BLOOD GAS Routine 01/05/2025 7:50 PM EST PHOSPHORUS Routine 01/05/2025 7:50 PM EST MAGNESIUM Routine 01/05/2025 7:50 PM EST BASIC METABOLIC PANEL (BMP) Routine 01/05/2025 7:50 PM EST LACTATE (BLOOD GAS) Routine 01/05/2025 4:54 PM EST OXYGEN SATURATION, ARTERIAL Routine 01/05/2025 4:54 PM EST HEMOGLOBIN (BLOOD GAS) Routine 4:54 PM EST GLUCOSE (BLOOD GAS) Routine 01/05/2025 4:54 PM EST POTASSIUM (BLOOD GAS) Routine 01/05/2025 4:54 PM EST ARTERIAL BLOOD GAS Routine 01/05/2025 4:54 PM EST D-DIMER STAT 01/05/2025 4:[address] CHEST PULMONARY ANGIOGRAM (ACUTE) STAT 01/05/2025 4:06 PM EST LACTATE (BLOOD GAS) Routine 01/05/2025 2:45 PM EST OXYGEN SATURATION, ARTERIAL Routine 01/05/2025 2:45 PM EST HEMOGLOBIN (BLOOD GAS) Routine 2:45 PM EST POTASSIUM (BLOOD GAS) Routine 01/05/2025 2:45 PM EST ARTERIAL BLOOD GAS Routine 01/05/2025 2:45 PM EST PHOSPHORUS Routine 01/05/2025 2:45 PM EST MAGNESIUM Routine 01/05/2025 2:45 PM EST BASIC METABOLIC PANEL (BMP) Routine 01/05/2025 2:45 PM EST XR CHEST PORTABLE Routine 01/05/2025 2:44 PM EST OXYGEN SATURATION, ARTERIAL Routine 01/05/2025 11:34 AM EST POTASSIUM (BLOOD GAS) Routine 01/05/2025 11:34 AM EST ARTERIAL BLOOD GAS Routine 01/05/2025 11:34 AM EST US BEDSIDE Routine 01/05/2025 11:10 AM EST LACTATE (BLOOD GAS) Routine 01/05/2025 10:29 AM EST OXYGEN SATURATION, ARTERIAL Routine 01/05/2025 10:29 AM EST HEMOGLOBIN (BLOOD GAS) Routine 10:29 AM EST GLUCOSE (BLOOD GAS) Routine 01/05/2025 10:29 AM EST IONIZED CALCIUM Routine 01/05/2025 10:29 AM EST POTASSIUM (BLOOD GAS) Routine 01/05/2025 10:29 AM EST SODIUM, BLOOD GAS Routine 01/05/2025 10:29 AM EST ARTERIAL BLOOD GAS Routine 01/05/2025 10:29 AM EST PHOSPHORUS Routine 01/05/2025 10:29 AM EST MAGNESIUM Routine 01/05/2025 10:29 AM EST CBC Routine 01/05/2025 10:29 AM EST BASIC METABOLIC PANEL (BMP) Routine 01/05/2025 10:29 AM EST PTT Routine 01/05/2025 7:16 AM EST PT-INR Routine 01/05/2025 7:16 AM EST CBC Routine 01/05/2025 7:16 AM EST LACTATE (BLOOD GAS) Routine 01/05/2025 7:16 AM EST OXYGEN SATURATION, ARTERIAL Routine 01/05/2025 7:16 AM EST HEMOGLOBIN (BLOOD GAS) Routine 7:16 AM EST GLUCOSE (BLOOD GAS) Routine 01/05/2025 7:16 AM EST IONIZED CALCIUM Routine 01/05/2025 7:16 AM EST POTASSIUM (BLOOD GAS) Routine 01/05/2025 7:16 AM EST SODIUM, BLOOD GAS Routine 01/05/2025 7:16 AM EST ARTERIAL BLOOD GAS Routine 01/05/2025 7:16 AM EST XR CHEST PORTABLE Timed 01/05/2025 6:00 AM EST ARTERIAL BLOOD GAS Routine 01/05/2025 5:29 AM EST LACTATE (BLOOD GAS) Routine 01/05/2025 5:01 AM EST ARTERIAL BLOOD GAS Routine 01/05/2025 5:01 AM EST TROPONIN Routine 01/05/2025 5:00 AM EST ECG 12-LEAD Routine 01/05/2025 3:37 AM EST LACTATE (BLOOD GAS) Routine 01/05/2025 3:13 AM EST HEMOGLOBIN (BLOOD GAS) Routine 3:13 AM EST GLUCOSE (BLOOD GAS) Routine 01/05/2025 3:13 AM EST IONIZED CALCIUM Routine 01/05/2025 3:13 AM EST POTASSIUM (BLOOD GAS) Routine 01/05/2025 3:13 AM EST SODIUM, BLOOD GAS Routine 01/05/2025 3:13 AM EST ARTERIAL BLOOD GAS Routine 01/05/2025 3:13 AM EST PTT Routine 01/05/2025 3:13 AM EST PT-INR Routine 01/05/2025 3:13 AM EST MAGNESIUM Routine 01/05/2025 3:13 AM EST LFTS (HEPATIC PANEL) Routine 01/05/2025 3:13 AM EST CBC Routine 01/05/2025 3:13 AM EST BASIC METABOLIC PANEL (BMP) Routine 01/05/2025 3:13 AM EST PHOSPHORUS Routine 01/05/2025 3:13 AM EST XR CHEST PORTABLE Timed 01/04/2025 10:19 PM EST PTT Routine 01/04/2025 8:23 PM EST PT-INR Routine 01/04/2025 8:23 PM EST CBC Routine 01/04/2025 8:23 PM EST PHOSPHORUS Routine 01/04/2025 8:23 PM EST MAGNESIUM Routine 01/04/2025 8:23 PM EST BASIC METABOLIC PANEL (BMP) Routine 01/04/2025 8:23 PM EST CBC Routine 01/04/2025 5:39 PM EST LACTATE (BLOOD GAS) Routine 01/04/2025 3:22 PM EST OXYGEN SATURATION, ARTERIAL Routine 01/04/2025 3:22 PM EST HEMOGLOBIN (BLOOD GAS) Routine 3:22 PM EST GLUCOSE (BLOOD GAS) Routine 01/04/2025 3:22 PM EST IONIZED CALCIUM Routine 01/04/2025 3:22 PM EST POTASSIUM (BLOOD GAS) Routine 01/04/2025 3:22 PM EST SODIUM, BLOOD GAS Routine 01/04/2025 3:22 PM EST ARTERIAL BLOOD GAS Routine 01/04/2025 3:22 PM EST PHOSPHORUS Routine 01/04/2025 3:22 PM EST MAGNESIUM Routine 01/04/2025 3:22 PM EST BASIC METABOLIC PANEL (BMP) Routine 01/04/2025 3:22 PM EST SPEECH ENDOSCOPIC EVALUATION IMAGE CAPTURE Routine 01/04/2025 1:52 PM EST POCT GLUCOSE Routine 01/04/2025 12:24 PM EST LACTATE (BLOOD GAS) Routine 01/04/2025 8:28 AM EST OXYGEN SATURATION, ARTERIAL Routine 01/04/2025 8:28 AM EST HEMOGLOBIN (BLOOD GAS) Routine 8:28 AM EST GLUCOSE (BLOOD GAS) Routine 01/04/2025 8:28 AM EST IONIZED CALCIUM Routine 01/04/2025 8:28 AM EST POTASSIUM (BLOOD GAS) Routine 01/04/2025 8:28 AM EST SODIUM, BLOOD GAS Routine 01/04/2025 8:28 AM EST ARTERIAL BLOOD GAS Routine 01/04/2025 8:28 AM EST XR ABDOMEN 1 VIEW Routine 01/04/2025 7:35 AM EST LACTATE (BLOOD GAS) Routine 01/04/2025 2:03 AM EST HEMOGLOBIN (BLOOD GAS) Routine 2:03 AM EST GLUCOSE (BLOOD GAS) Routine 01/04/2025 2:03 AM EST IONIZED CALCIUM Routine 01/04/2025 2:03 AM EST POTASSIUM (BLOOD GAS) Routine 01/04/2025 2:03 AM EST SODIUM, BLOOD GAS Routine 01/04/2025 2:03 AM EST ARTERIAL BLOOD GAS Routine 01/04/2025 2:03 AM EST PTT Routine 01/04/2025 2:03 AM EST PT-INR Routine 01/04/2025 2:03 AM EST PHOSPHORUS Routine 01/04/2025 2:03 AM EST MAGNESIUM Routine 01/04/2025 2:03 AM EST LFTS (HEPATIC PANEL) Routine 01/04/2025 2:03 AM EST CBC Routine 01/04/2025 2:03 AM EST BASIC METABOLIC PANEL (BMP) Routine 01/04/2025 2:03 AM EST XR CHEST PORTABLE Routine 01/03/2025 10:03 PM EST PHOSPHORUS Routine 01/03/2025 7:47 PM EST MAGNESIUM Routine 01/03/2025 7:47 PM EST BASIC METABOLIC PANEL (BMP) Routine 01/03/2025 7:47 PM EST LACTATE (BLOOD GAS) Routine 01/03/2025 7:47 PM EST HEMOGLOBIN (BLOOD GAS) Routine 7:47 PM EST GLUCOSE (BLOOD GAS) Routine 01/03/2025 7:47 PM EST IONIZED CALCIUM Routine 01/03/2025 7:47 PM EST POTASSIUM (BLOOD GAS) Routine 01/03/2025 7:47 PM EST SODIUM, BLOOD GAS Routine 01/03/2025 7:47 PM EST ARTERIAL BLOOD GAS Routine 01/03/2025 7:47 PM EST ARTERIAL BLOOD GAS Routine 01/03/2025 3:45 PM EST SODIUM, BLOOD GAS Routine 01/03/2025 3:45 PM EST POTASSIUM (BLOOD GAS) Routine 01/03/2025 3:45 PM EST LACTATE (BLOOD GAS) Routine 01/03/2025 3:45 PM EST IONIZED CALCIUM Routine 01/03/2025 3:45 PM EST HEMOGLOBIN (BLOOD GAS) Routine 3:45 PM EST GLUCOSE (BLOOD GAS) Routine 01/03/2025 3:45 PM EST OXYGEN SATURATION, ARTERIAL Routine 01/03/2025 3:45 PM EST BASIC METABOLIC PANEL (BMP) Routine 01/03/2025 3:45 PM EST POCT GLUCOSE Routine 01/03/2025 1:22 PM EST LACTATE (BLOOD GAS) Routine 01/03/2025 12:17 PM EST OXYGEN SATURATION, ARTERIAL Routine 01/03/2025 12:17 PM EST HEMOGLOBIN (BLOOD GAS) Routine 12:17 PM EST GLUCOSE (BLOOD GAS) Routine 01/03/2025 12:17 PM EST IONIZED CALCIUM Routine 01/03/2025 12:17 PM EST POTASSIUM (BLOOD GAS) Routine 01/03/2025 12:17 PM EST SODIUM, BLOOD GAS Routine 01/03/2025 12:17 PM EST ARTERIAL BLOOD GAS Routine 01/03/2025 12:17 PM EST PHOSPHORUS Routine 01/03/2025 12:17 PM EST MAGNESIUM Routine 01/03/2025 12:17 PM EST BASIC METABOLIC PANEL (BMP) Routine 01/03/2025 12:17 PM EST POCT GLUCOSE Routine 01/03/2025 11:58 AM EST OXYGEN SATURATION, ARTERIAL Routine 01/03/2025 10:25 AM EST HEMOGLOBIN (BLOOD GAS) Routine 10:25 AM EST GLUCOSE (BLOOD GAS) Routine 01/03/2025 10:25 AM EST IONIZED CALCIUM Routine 01/03/2025 10:25 AM EST POTASSIUM (BLOOD GAS) Routine 01/03/2025 10:25 AM EST SODIUM, BLOOD GAS Routine 01/03/2025 10:25 AM EST ARTERIAL BLOOD GAS Routine 01/03/2025 10:25 AM EST SODIUM, RANDOM URINE Routine 01/03/2025 8:45 AM EST LACTATE (BLOOD GAS) Routine 01/03/2025 8:40 AM EST OXYGEN SATURATION, ARTERIAL Routine 01/03/2025 8:40 AM EST HEMOGLOBIN (BLOOD GAS) Routine 8:40 AM EST GLUCOSE (BLOOD GAS) Routine 01/03/2025 8:40 AM EST IONIZED CALCIUM Routine 01/03/2025 8:40 AM EST POTASSIUM (BLOOD GAS) Routine 01/03/2025 8:40 AM EST SODIUM, BLOOD GAS Routine 01/03/2025 8:40 AM EST ARTERIAL BLOOD GAS Routine 01/03/2025 8:40 AM EST MAGNESIUM Routine 01/03/2025 8:40 AM EST OSMOLALITY, SERUM Routine 01/03/2025 8:40 AM EST POCT GLUCOSE Routine 01/03/2025 7:33 AM EST POCT GLUCOSE Routine 01/03/2025 6:26 AM EST LACTATE (BLOOD GAS) Routine 01/03/2025 5:35 AM EST HEMOGLOBIN (BLOOD GAS) Routine 5:35 AM EST GLUCOSE (BLOOD GAS) Routine 01/03/2025 5:35 AM EST IONIZED CALCIUM Routine 01/03/2025 5:35 AM EST POTASSIUM (BLOOD GAS) Routine 01/03/2025 5:35 AM EST SODIUM, BLOOD GAS Routine 01/03/2025 5:35 AM EST ARTERIAL BLOOD GAS Routine 01/03/2025 5:35 AM EST POCT GLUCOSE Routine 01/03/2025 5:19 AM EST POCT GLUCOSE Routine 01/03/2025 4:22 AM EST LACTATE (BLOOD GAS) Routine 01/03/2025 3:09 AM EST OXYGEN SATURATION, ARTERIAL Routine 01/03/2025 3:09 AM EST HEMOGLOBIN (BLOOD GAS) Routine 3:09 AM EST GLUCOSE (BLOOD GAS) Routine 01/03/2025 3:09 AM EST IONIZED CALCIUM Routine 01/03/2025 3:09 AM EST POTASSIUM (BLOOD GAS) Routine 01/03/2025 3:09 AM EST SODIUM, BLOOD GAS Routine 01/03/2025 3:09 AM EST ARTERIAL BLOOD GAS Routine 01/03/2025 3:09 AM EST PTT Routine 01/03/2025 3:09 AM EST PT-INR Routine 01/03/2025 3:09 AM EST PHOSPHORUS Routine 01/03/2025 3:09 AM EST MAGNESIUM Routine 01/03/2025 3:09 AM EST LFTS (HEPATIC PANEL) Routine 01/03/2025 3:09 AM EST CBC Routine 01/03/2025 3:09 AM EST BASIC METABOLIC PANEL (BMP) Routine 01/03/2025 3:09 AM EST XR CHEST PORTABLE Timed 01/03/2025 2:50 AM EST LACTATE (BLOOD GAS) Routine 01/03/2025 1:24 AM EST OXYGEN SATURATION, ARTERIAL Routine 01/03/2025 1:24 AM EST HEMOGLOBIN (BLOOD GAS) Routine 1:24 AM EST GLUCOSE (BLOOD GAS) Routine 01/03/2025 1:24 AM EST IONIZED CALCIUM Routine 01/03/2025 1:24 AM EST POTASSIUM (BLOOD GAS) Routine 01/03/2025 1:24 AM EST SODIUM, BLOOD GAS Routine 01/03/2025 1:24 AM EST ARTERIAL BLOOD GAS Routine 01/03/2025 1:24 AM EST LACTATE (BLOOD GAS) Routine 01/02/2025 11:13 PM EST HEMOGLOBIN (BLOOD GAS) Routine 11:13 PM EST GLUCOSE (BLOOD GAS) Routine 01/02/2025 11:13 PM EST IONIZED CALCIUM Routine 01/02/2025 11:13 PM EST POTASSIUM (BLOOD GAS) Routine 01/02/2025 11:13 PM EST SODIUM, BLOOD GAS Routine 01/02/2025 11:13 PM EST ARTERIAL BLOOD GAS Routine 01/02/2025 11:13 PM EST MAGNESIUM Routine 01/02/2025 11:13 PM EST BASIC METABOLIC PANEL (BMP) Routine 01/02/2025 11:13 PM EST OSMOLALITY (URINE, RANDOM) Routine 01/02/2025 11:13 PM EST SODIUM Routine 01/02/2025 11:13 PM EST TYPE AND SCREEN (ABO, RH, ANTIBODY SCREEN) Routine 01/02/2025 11:13 PM EST TYPE AND SCREEN (ABO,RH,ANTIBODY SCREEN) Routine 01/02/2025 11:13 PM EST OXYGEN SATURATION, ARTERIAL Routine 01/02/2025 9:43 PM EST LACTATE (BLOOD GAS) Routine 01/02/2025 9:43 PM EST HEMOGLOBIN (BLOOD GAS) Routine 9:43 PM EST GLUCOSE (BLOOD GAS) Routine 01/02/2025 9:43 PM EST IONIZED CALCIUM Routine 01/02/2025 9:43 PM EST POTASSIUM (BLOOD GAS) Routine 01/02/2025 9:43 PM EST SODIUM, BLOOD GAS Routine 01/02/2025 9:43 PM EST ARTERIAL BLOOD GAS Routine 01/02/2025 9:43 PM EST ANES SPINAL PUNCTURE,THERAPEUTIC DRAINAGE PERF Routine 01/02/2025 9:41 PM EST XR ELBOW 2 VIEWS (LEFT) Routine 01/03/20 8:54 PM EST XR CHEST PORTABLE Routine 01/02/2025 8:44 PM EST XR SHOULDER 1 VIEW (LEFT) Routine 01/02/2025 8:44 PM EST LACTATE (BLOOD GAS) Routine 01/02/2025 8:28 PM EST OXYGEN SATURATION, ARTERIAL Routine 01/02/2025 8:28 PM EST HEMOGLOBIN (BLOOD GAS) Routine 8:28 PM EST GLUCOSE (BLOOD GAS) Routine 01/02/2025 8:28 PM EST IONIZED CALCIUM Routine 01/02/2025 8:28 PM EST POTASSIUM (BLOOD GAS) Routine 01/02/2025 8:28 PM EST SODIUM, BLOOD GAS Routine 01/02/2025 8:28 PM EST ARTERIAL BLOOD GAS Routine 01/02/2025 8:28 PM EST PTT Routine 01/02/2025 8:28 PM EST PT-INR Routine 01/02/2025 8:28 PM EST PHOSPHORUS Routine 01/02/2025 8:28 PM EST MAGNESIUM Routine 01/02/2025 8:28 PM EST LFTS (HEPATIC PANEL) Routine 01/02/2025 8:28 PM EST FIBRINOGEN Routine 01/02/2025 8:28 PM EST CBC Routine 01/02/2025 8:28 PM EST BASIC METABOLIC PANEL (BMP) Routine 01/02/2025 8:28 PM EST LIPASE Routine 01/02/2025 8:28 PM EST VANCOMYCIN RESISTANT ENTEROCOCCI (VRE) RECTAL SCREEN Routine 01/02/2025 8:28 PM EST MRSA NASAL SCREEN Routine 01/02/2025 8:28 PM EST FIBRINOGEN STAT 01/02/2025 7:40 PM EST PTT STAT 01/02/2025 7:40 PM EST PT-INR STAT 01/02/2025 7:40 PM EST CBC STAT 01/02/2025 7:40 PM EST LACTATE (BLOOD GAS) STAT 01/02/2025 7:40 PM EST OXYGEN SATURATION, ARTERIAL STAT 01/02/2025 7:40 PM EST HEMOGLOBIN (BLOOD GAS) STAT 7:40 PM EST GLUCOSE (BLOOD GAS) STAT 01/02/2025 7:40 PM EST IONIZED CALCIUM STAT 01/02/2025 7:40 PM EST POTASSIUM (BLOOD GAS) STAT 01/02/2025 7:40 PM EST SODIUM, BLOOD GAS STAT 01/02/2025 7:40 PM EST ARTERIAL BLOOD GAS STAT 01/02/2025 7:40 PM EST LACTATE (BLOOD GAS) STAT 01/02/2025 7:05 PM EST OXYGEN SATURATION, ARTERIAL STAT 01/02/2025 7:05 PM EST HEMOGLOBIN (BLOOD GAS) STAT 7:05 PM EST GLUCOSE (BLOOD GAS) STAT 01/02/2025 7:05 PM EST IONIZED CALCIUM STAT 01/02/2025 7:05 PM EST POTASSIUM (BLOOD GAS) STAT 01/02/2025 7:05 PM EST SODIUM, BLOOD GAS STAT 01/02/2025 7:05 PM EST ARTERIAL BLOOD GAS STAT 01/02/2025 7:05 PM EST ASSIGN RED BLOOD CELLS Routine 6:59 PM EST FIBRINOGEN STAT 01/02/2025 6:39 PM EST PTT STAT 01/02/2025 6:39 PM EST PT-INR STAT 01/02/2025 6:39 PM EST CBC STAT 01/02/2025 6:39 PM EST ASSIGN CRYOPRECIPITATE Routine 6:31 PM EST LACTATE (BLOOD GAS) STAT 01/02/2025 6:28 PM EST OXYGEN SATURATION, ARTERIAL STAT 01/02/2025 6:28 PM EST HEMOGLOBIN (BLOOD GAS) STAT 6:28 PM EST GLUCOSE (BLOOD GAS) STAT 01/02/2025 6:28 PM EST IONIZED CALCIUM STAT 01/02/2025 6:28 PM EST POTASSIUM (BLOOD GAS) STAT 01/02/2025 6:28 PM EST SODIUM, BLOOD GAS STAT 01/02/2025 6:28 PM EST ARTERIAL BLOOD GAS STAT 01/02/2025 6:28 PM EST ASSIGN FRESH FROZEN PLASMA Routine 01/02/2025 6:22 PM EST LACTATE (BLOOD GAS) STAT 01/02/2025 6:06 PM EST OXYGEN SATURATION, ARTERIAL STAT 01/02/2025 6:06 PM EST HEMOGLOBIN (BLOOD GAS) STAT 6:06 PM EST GLUCOSE (BLOOD GAS) STAT 01/02/2025 6:06 PM EST IONIZED CALCIUM STAT 01/02/2025 6:06 PM EST POTASSIUM (BLOOD GAS) STAT 01/02/2025 6:06 PM EST SODIUM, BLOOD GAS STAT 01/02/2025 6:06 PM EST ARTERIAL BLOOD GAS STAT 01/02/2025 6:06 PM EST ASSIGN PLATELETS Routine 01/02/2025 6:04 PM EST ASSIGN FRESH FROZEN PLASMA Routine 01/02/2025 5:50 PM EST ASSIGN RED BLOOD CELLS Routine 5:46 PM EST ASSIGN FRESH FROZEN PLASMA Routine 01/02/2025 5:41 PM EST POCT ACTIVATED CLOTTING TIME (ACT) Routine 01/02/2025 5:36 PM EST POCT HEPARIN PROTAMINE TITRATION Routine 01/02/2025 5:36 PM EST POCT THROMBOELASTOGRAPHY (TEG 6S) Routine 01/02/2025 5:35 PM EST LACTATE (BLOOD GAS) STAT 01/02/2025 5:29 PM EST OXYGEN SATURATION, ARTERIAL STAT 01/02/2025 5:29 PM EST HEMOGLOBIN (BLOOD GAS) STAT 5:29 PM EST GLUCOSE (BLOOD GAS) STAT 01/02/2025 5:29 PM EST IONIZED CALCIUM STAT 01/02/2025 5:29 PM EST POTASSIUM (BLOOD GAS) STAT 01/02/2025 5:29 PM EST SODIUM, BLOOD GAS STAT 01/02/2025 5:29 PM EST ARTERIAL BLOOD GAS STAT 01/02/2025 5:29 PM EST FIBRINOGEN STAT 01/02/2025 5:29 PM EST PTT STAT 01/02/2025 5:29 PM EST PT-INR STAT 01/02/2025 5:29 PM EST CBC STAT 01/02/2025 5:29 PM EST POCT ACTIVATED CLOTTING TIME (ACT) Routine 01/02/2025 5:21 PM EST POCT HEPARIN PROTAMINE TITRATION Routine 01/02/2025 5:21 PM EST ASSIGN FRESH FROZEN PLASMA Routine 01/02/2025 5:18 PM EST POCT THROMBOELASTOGRAPHY (TEG 6S) Routine 01/02/2025 4:59 PM EST POCT ACTIVATED CLOTTING TIME (ACT) Routine 01/02/2025 4:58 PM EST POCT HEPARIN PROTAMINE TITRATION Routine 01/02/2025 4:58 PM EST LACTATE (BLOOD GAS) STAT 01/02/2025 4:53 PM EST OXYGEN SATURATION, ARTERIAL STAT 01/02/2025 4:53 PM EST HEMOGLOBIN (BLOOD GAS) STAT 4:53 PM EST GLUCOSE (BLOOD GAS) STAT 01/02/2025 4:53 PM EST IONIZED CALCIUM STAT 01/02/2025 4:53 PM EST POTASSIUM (BLOOD GAS) STAT 01/02/2025 4:53 PM EST SODIUM, BLOOD GAS STAT 01/02/2025 4:53 PM EST ARTERIAL BLOOD GAS STAT 01/02/2025 4:53 PM EST FIBRINOGEN STAT 01/02/2025 4:53 PM EST PTT STAT 01/02/2025 4:53 PM EST PT-INR STAT 01/02/2025 4:53 PM EST CBC STAT 01/02/2025 4:53 PM EST ASSIGN CRYOPRECIPITATE Routine 4:51 PM EST ASSIGN CRYOPRECIPITATE Routine 4:50 PM EST ASSIGN FRESH FROZEN PLASMA Routine 01/02/2025 4:50 PM EST ASSIGN PLATELETS Routine 01/02/2025 4:50 PM EST ASSIGN PLATELETS Routine 01/02/2025 4:48 PM EST LACTATE (BLOOD GAS) STAT 01/02/2025 4:20 PM EST HEMOGLOBIN (BLOOD GAS) STAT 4:20 PM EST GLUCOSE (BLOOD GAS) STAT 01/02/2025 4:20 PM EST IONIZED CALCIUM STAT 01/02/2025 4:20 PM EST POTASSIUM (BLOOD GAS) STAT 01/02/2025 4:20 PM EST SODIUM, BLOOD GAS STAT 01/02/2025 4:20 PM EST PUMP BLOOD GAS STAT 01/02/2025 4:20 PM EST POCT HEPARIN PROTAMINE TITRATION Routine 01/02/2025 4:19 PM EST POCT ACTIVATED CLOTTING TIME (ACT) Routine 01/02/2025 3:57 PM EST ASSIGN RED BLOOD CELLS Routine 3:57 PM EST POCT HEPARIN PROTAMINE TITRATION Routine 01/02/2025 3:55 PM EST LACTATE (BLOOD GAS) STAT 01/02/2025 3:48 PM EST HEMOGLOBIN (BLOOD GAS) STAT 3:48 PM EST GLUCOSE (BLOOD GAS) STAT 01/02/2025 3:48 PM EST IONIZED CALCIUM STAT 01/02/2025 3:48 PM EST POTASSIUM (BLOOD GAS) STAT 01/02/2025 3:48 PM EST SODIUM, BLOOD GAS STAT 01/02/2025 3:48 PM EST PUMP BLOOD GAS STAT 01/02/2025 3:48 PM EST ASSIGN RED BLOOD CELLS Routine 3:46 PM EST ASSIGN FRESH FROZEN PLASMA Routine 01/02/2025 3:45 PM EST FIBRINOGEN STAT 01/02/2025 3:35 PM EST PT-INR STAT 01/02/2025 3:35 PM EST CBC STAT 01/02/2025 3:35 PM EST ASSIGN FRESH FROZEN PLASMA Routine 01/02/2025 3:24 PM EST POCT ACTIVATED CLOTTING TIME (ACT) Routine 01/02/2025 3:20 PM EST POCT HEPARIN PROTAMINE TITRATION Routine 01/02/2025 3:18 PM EST LACTATE (BLOOD GAS) STAT 01/02/2025 3:16 PM EST HEMOGLOBIN (BLOOD GAS) STAT 3:16 PM EST GLUCOSE (BLOOD GAS) STAT 01/02/2025 3:16 PM EST IONIZED CALCIUM STAT 01/02/2025 3:16 PM EST POTASSIUM (BLOOD GAS) STAT 01/02/2025 3:16 PM EST SODIUM, BLOOD GAS STAT 01/02/2025 3:16 PM EST PUMP BLOOD GAS STAT 01/02/2025 3:16 PM EST POCT ACTIVATED CLOTTING TIME (ACT) Routine 01/02/2025 2:59 PM EST POCT HEPARIN PROTAMINE TITRATION Routine 01/02/2025 2:56 PM EST LACTATE (BLOOD GAS) STAT 01/02/2025 2:47 PM EST HEMOGLOBIN (BLOOD GAS) STAT 2:47 PM EST GLUCOSE (BLOOD GAS) STAT 01/02/2025 2:47 PM EST IONIZED CALCIUM STAT 01/02/2025 2:47 PM EST POTASSIUM (BLOOD GAS) STAT 01/02/2025 2:47 PM EST SODIUM, BLOOD GAS STAT 01/02/2025 2:47 PM EST PUMP BLOOD GAS STAT 01/02/2025 2:47 PM EST POCT ACTIVATED CLOTTING TIME (ACT) Routine 01/02/2025 2:20 PM EST POCT HEPARIN PROTAMINE TITRATION Routine 01/02/2025 2:18 PM EST TISSUE EXAM Routine 01/02/2025 2:14 PM EST POCT ACTIVATED CLOTTING TIME (ACT) Routine 01/02/2025 1:46 PM EST POCT HEPARIN PROTAMINE TITRATION Routine 01/02/2025 1:46 PM EST LACTATE (BLOOD GAS) STAT 01/02/2025 1:45 PM EST HEMOGLOBIN (BLOOD GAS) STAT 1:45 PM EST GLUCOSE (BLOOD GAS) STAT 01/02/2025 1:45 PM EST IONIZED CALCIUM STAT 01/02/2025 1:45 PM EST POTASSIUM (BLOOD GAS) STAT 01/02/2025 1:45 PM EST SODIUM, BLOOD GAS STAT 01/02/2025 1:45 PM EST PUMP BLOOD GAS STAT 01/02/2025 1:45 PM EST ASSIGN RED BLOOD CELLS Routine 1:34 PM EST POCT ACTIVATED CLOTTING TIME (ACT) Routine 01/02/2025 1:17 PM EST POCT HEPARIN PROTAMINE TITRATION Routine 01/02/2025 1:17 PM EST LACTATE (BLOOD GAS) STAT 01/02/2025 1:15 PM EST HEMOGLOBIN (BLOOD GAS) STAT 1:15 PM EST GLUCOSE (BLOOD GAS) STAT 01/02/2025 1:15 PM EST IONIZED CALCIUM STAT 01/02/2025 1:15 PM EST POTASSIUM (BLOOD GAS) STAT 01/02/2025 1:15 PM EST SODIUM, BLOOD GAS STAT 01/02/2025 1:15 PM EST PUMP BLOOD GAS STAT 01/02/2025 1:15 PM EST POCT ACTIVATED CLOTTING TIME (ACT) Routine 01/02/2025 12:55 PM EST POCT HEPARIN PROTAMINE TITRATION Routine 01/02/2025 12:55 PM EST VENOUS BLOOD GAS STAT 01/02/2025 12:53 PM EST LACTATE (BLOOD GAS) STAT 01/02/2025 12:53 PM EST HEMOGLOBIN (BLOOD GAS) STAT 12:53 PM EST GLUCOSE (BLOOD GAS) STAT 01/02/2025 12:53 PM EST IONIZED CALCIUM STAT 01/02/2025 12:53 PM EST POTASSIUM (BLOOD GAS) STAT 01/02/2025 12:53 PM EST SODIUM, BLOOD GAS STAT 01/02/2025 12:53 PM EST PUMP BLOOD GAS STAT 01/02/2025 12:53 PM EST LACTATE (BLOOD GAS) STAT 01/02/2025 12:41 PM EST OXYGEN SATURATION, ARTERIAL STAT 01/02/2025 12:41 PM EST HEMOGLOBIN (BLOOD GAS) STAT 12:41 PM EST GLUCOSE (BLOOD GAS) STAT 01/02/2025 12:41 PM EST IONIZED CALCIUM STAT 01/02/2025 12:41 PM EST POTASSIUM (BLOOD GAS) STAT 01/02/2025 12:41 PM EST SODIUM, BLOOD GAS STAT 01/02/2025 12:41 PM EST ARTERIAL BLOOD GAS STAT 01/02/2025 12:41 PM EST DE INSERT CATH ART PERCUT SHORTTERM PERF Routine 01/02/2025 10:24 AM EST DE INSERT CATH ART PERCUT SHORTTERM PERF Routine 01/02/2025 10:23 AM EST ANES VIP PLUS CATH - CENTRAL PA LINE Routine 01/02/2025 10:18 AM EST ANES DOUBLE LUMEN SHEATH - PA LINE Routine 01/02/2025 10:18 AM EST DE INSERT/PLACE FLOW DIRECT CATH PERF Routine 01/02/2025 10:18 AM EST LACTATE (BLOOD GAS) STAT 01/02/2025 9:37 AM EST OXYGEN SATURATION, ARTERIAL STAT 01/02/2025 9:37 AM EST HEMOGLOBIN (BLOOD GAS) STAT 9:37 AM EST GLUCOSE (BLOOD GAS) STAT 01/02/2025 9:37 AM EST IONIZED CALCIUM STAT 01/02/2025 9:37 AM EST POTASSIUM (BLOOD GAS) STAT 01/02/2025 9:37 AM EST SODIUM, BLOOD GAS STAT 01/02/2025 9:37 AM EST LACTATE (BLOOD GAS) STAT 01/02/2025 9:37 AM EST POCT HEPARIN DOSE RESPONSE Routine 01/02/2025 9:29 AM EST DE ECHO HEART TRANSESOPH PROBE PLACEMT PERF Routine 01/02/2025 9:20 AM EST FL FLUORO GUIDANCE - NO CHARGE Routine 01/02/2025 9:17 AM EST AIRWAY PLACEMENT Routine 01/02/2025 7:48 AM EST DE THORACIC AORTA GRAFT 01/03/20 7:29 AM EST Descending aortic aneurysm Special Needs CPT Code(s) for : Descending Aorta Aneurysm Graft Replacement [id number] Spinal Drain [id number] ANESTHESIA POINT OF CARE IMAGE CAPTURE Routine 01/02/2025 6:36 AM EST ANESTHESIA POINT OF CARE IMAGE CAPTURE Routine 01/02/2025 5:36 AM EST XR CHEST PA AND LATERAL 2 VIEWS Routine 12/27/2024 3:29 PM EST Aneurysm TYPE AND SCREEN (CONVERSION) Routine 12/18/2024 8:47 AM EST PREPARE CRYOPRECIPITATE Routine 12/19/19 8:47 AM EST PREPARE PLATELETS Routine 12/18/2024 8:47 AM EST PREPARE PLATELETS Routine 12/18/2024 8:47 AM EST PREPARE CRYOPRECIPITATE Routine 12/19/19 8:47 AM EST PREPARE PLASMA Routine 12/18/2024 8:47 AM EST PREPARE RBC Routine 12/18/2024 8:47 AM EST ABO AND [...] (NO INTERPRETATION) Routine 10/31/2024 12:00 AM EDT from Last 3 Months Results * SANA COMP PROBE PLACED BY ANES W/ COLOR FLOW AND COMP DOPPLER (01/16/2025 8:19 AM EST) Body Surface Area 2.02 m2 Anatomical Region Laterality Modality Heart Ultrasound Narrative 01/16/2025 11:14 AM EST General Findings The image quality was fair (3). Descending aortic replacement The predominant rhythm during the study was sinus. Patient tolerated the procedure well. No adverse reaction to medication was noted. . No complications observed during the procedure. There were no probe complications noted. Comparison Findings There are no prior studies for comparison. Left Ventricle - Pre There is normal left ventricular systolic function. Left Ventricle - Post There is normal left ventricular systolic function on epi 4 mcg/min, Right Ventricle - Pre There is a catheter present in the right ventricle. There is normal right ventricular systolic function. Right Ventricle - Post Right ventricular systolic function is at the lower limits of normal on epi 4 mcg/min. Left Atrium - Pre There is no thrombus detected in the left atrium or atrial appendage. There are normal flow patterns in the pulmonary vein. Left Atrium - Post There is no thrombus detected in the left atrium or atrial appendage. There is normal appendage emptying flow velocity. Right Atrium - Pre There is a catheter present in the right atrium. Right Atrium - Post There is a catheter present in the right atrium. There is a catheter present in the SVC. Mitral Valve - Pre There is trace mitral regurgitation. Mitral Valve - Post There is trace to mild mitral regurgitation. Aortic Valve - Pre The aortic valve is tricuspid. There is trace aortic regurgitation. The origin of the valvular regurgitation is central. The aortic sinuses are dilated. There is a graft present in the ascending aorta. There is a linear echodensity consistent with chronic dissection, evidence of thrombus in the false lumen. Aortic Valve - Post There is trace aortic regurgitation. The origin of the valvular regurgitation is central. There is a surgical graft present in the ascending aorta and descending aorta. There is a residual aortic dissection flap (post repair) localized at the descending aorta beyond the graft. Tricuspid Valve - Pre There is trace tricuspid regurgitation. Tricuspid Valve - Post There is moderate tricuspid regurgitation. Pulmonic Valve - Pre There is trace pulmonic regurgitation. Pulmonic Valve - Post The pulmonic valve is suboptimally visualized. Pericardium - Pre There is no pericardial effusion. IAS/IVS - Pre There is no evidence of patent foramen ovale (PFO) by Doppler. IAS/IVS - Post There is no evidence of patent foramen ovale (PFO). Cherrie Hall MD CV ECHO ORDERABLES Fin al Result * (ABNORMAL) CBC (01/11/2025 1:03 PM EST) Only the most recent of19 resultswithin the time period is included. WBC 18.62(H) 4.00 - 11.00 K/uL 01/11/2025 1:43 PM [facility] RBC 3.51(L) 4.50 - 5.90 M/uL 01/11/2025 1:43 PM [facility] Hemoglobin 10.1(L) 13.5 - 17.5 g/dL 01/11/2025 1:43 PM [facility] Hematocrit 30.8(L) 41.0 - 53.0 % 01/11/2025 1:43 PM [facility] MCV 87.7 80.0 - 100.0 fL 01/11/2025 1:43 PM [facility] MCH 28.8 27.0 - 31.0 pg 01/11/2025 1:43 PM [facility] MCHC 32.8 32.0 - 36.0 g/dL 01/11/2025 1:43 PM [facility] PLT 645(H) 150 - 450 K/uL 01/11/2025 1:43 PM [facility] MPV 9.4 8.4 - 12.0 fL 01/11/2025 1:43 PM [facility] RDW-CV 17.1(H) 11.5 - 14.5 % 01/11/2025 1:43 PM [facility] Absolute NRBC 0.02(H) <=0.00 K cells/uL 01/11/2025 1:43 PM [facility] NRBC 0.1(H) <=0.0 /100 WBCs 01/11/2025 1:43 PM [facility] Blood (Blood) Venipuncture / Unknown 01/11/2025 1:03 PM EST 01/11/2025 1:31 PM EST us Doron LOZANO LAB BLOOD BKR ORDERABLES Final Result [facility] [address], [place] [id number] * (ABNORMAL) Urinalysis with Reflex to Urine Culture (01/10/2025 12:15 PM EST) Color Yellow Yellow 01/10/2025 12:32 PM [facility] Clarity Clear Clear 01/10/2025 12:32 PM [facility] Glucose Negative Negative 01/10/2025 12:32 PM [facility] Bilirubin Urine Negative Negative 12:32 PM [facility] Ketone Urine Trace(A) Negative 01/10/2025 12:32 PM [facility] Specific Graham 1.037(H) 1.001 - 1.035 01/10/2025 12:32 PM [facility] Blood 1+(A) Negative 01/10/2025 12:32 PM [facility] pH 6.0 5.0 - 8.0 01/10/2025 12:32 PM [facility] Protein 2+(A) Negative 01/10/2025 12:32 PM EST [facility] Nitrites Negative Negative 01/10/2025 12:32 PM EST [facility] Leukocyte Esterase Negative Negative 01/10/2025 12:32 PM EST [facility] Urobilinogen 1+(A) Negative 01/10/2025 12:32 PM EST [facility] Urine (Urine, Voided) Non-Blood Collection / Unknown 01/10/2025 12:15 PM EST 01/10/2025 12:24 PM EST Shell Garza PA-C LAB URINE ORDERABLES Final Resul t Performing Organization Address [facility] Co de Phone Number [address] [address] * (ABNORMAL) URINE SEDIMENT (01/10/2025 12:15 PM EST) Only the most recent of2 resultswithin the time period is included. WBC 3-5 0 - 9 /hpf 01/10/2025 12:41 PM EST [facility] RBC 0-2 0 - 2 /hpf 01/10/2025 12:41 PM EST [facility] Mucus Present(A ) Not Present /hpf 01/10/2025 12:41 PM EST [facility] Bacteria 1+(A) Negative /hpf 01/10/2025 12:41 PM EST [facility] Hyaline Cast 3-5(A) 0 - 2 /lpf 01/10/2025 12:41 PM EST [facility] Urine (Urine, Voided) Non-Blood Collection / Unknown 01/10/2025 12:15 PM EST 01/10/2025 12:24 PM EST Shell Garza PA-C LAB URINE ORDERABLES Final Resul t Performing Organization Address City/[facility]/ZIP Co de Phone Number [address] [address] * Respiratory Culture/Smear (01/10/2025 11:13 AM EST) Only the most recent of2 resultswithin the time period is included. Respiratory Culture/Test Normal abdoulaye present 01/12/2025 8:14 AM EST [facility] Gram Stain Few (2+) Polymorphonuclear leukocytes 01/12/2025 8:14 AM EST [facility] Gram Stain No organisms seen 8:14 AM EST [facility] Sputum (Respiratory Tract) Non-Blood Collection / Unknown 01/10/2025 11:13 AM EST 01/10/2025 1:08 PM EST Shell Kayla CORREA-C LAB MICROBIOLOGY CULTURE ORDERAB LES Final Result Performing Organization Address City/[facility]/ZIP Co de Phone Number [address] [address] * Blood Culture, Routine (01/10/2025 11:13 AM EST) Only the most recent of4 resultswithin the time period is included. Blood Culture/Test No growth at 5 days 01/15/2025 1:15 PM EST [facility] Blood (Blood) Venipuncture / Unknown 01/10/2025 11:13 AM EST 01/10/2025 1:02 PM EST ShellURX SUNNY-C LAB MICROBIOLOGY CULTURE ORDERAB LES Final Result Performing Organization Address City/[facility] Co de Phone Number [address] [address] * XR Chest Portable (01/10/2025 7:01 AM EST) Anatomical Region Laterality Modality Chest Computed Radiogr aphy 01/10/2025 12:0 2 PM EST Impressions 01/10/2025 12:10 PM EST Tubes and lines as described. Patchy opacity RIGHT midlung zone but otherwise clear RIGHT lung. Patchy atelectasis LEFT lower lobe. Small LEFT pleural effusion unchanged Narrative 01/10/2025 12:10 PM EST XR CHEST PORTABLE Referring clinician's provided indication for this examination in Epic: S/P Cardiac Surgery COMPARISON: XR CHEST PA AND LATERAL 2 VIEWS FINDINGS: Devices/Tubes/Lines: There has been a median sternotomy. 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 Lungs: There is some patchy opacity in the RIGHT midlung zone but the RIGHT lung is otherwise clear. There is some patchy atelectasis in the LEFT lower lobe. Pleura: There is a small LEFT pleural effusion unchanged since the prior study. Heart/Mediastinum: The heart size is unchanged Bones/Soft Tissues: Normal. No significant skeletal abnormality. Procedure Note Annmarie Hill MD - 01/10/2025 XR CHEST PORTABLE Referring clinician's provided indication for this examination in Epic:S/P Cardiac Surgery COMPARISON: XR CHEST PA AND LATERAL 2 VIEWS 2024- FINDINGS: Devices/Tubes/Lines: There has been a median sternotomy. 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 Lungs: There is some patchy opacity in the RIGHT midlung zone but theRIGHT lung is otherwise clear. There is some patchy atelectasis in the LEFT lower lobe. Pleura: There is a small LEFT pleural effusion unchanged since the priorstudy. Heart/Mediastinum: The heart size is unchanged Bones/Soft Tissues: Normal. No significant skeletal abnormality. IMPRESSION: Tubes and lines as described. Patchy opacity RIGHT midlung zone but otherwise clear RIGHT lung. Patchy atelectasis LEFT lower lobe. Small LEFT pleural effusion unchanged Shell Garza PA-C IMG XR CHEST Final Result * Magnesium (01/10/2025 4:26 AM EST) Only the most recent of20 resultswithin the time period is included. Magnesium 2.2 1.7 - 2.6 mg/dL 01/10/2025 5:18 AM EST [facility] Blood (Blood) Venipuncture / Unknown 01/10/2025 4:26 AM EST 01/10/2025 4:34 AM EST Doron LOZANO LAB BLOOD BKR ORDERABLES Final Result [address] [address] * (ABNORMAL) Basic Metabolic Panel (BMP) (01/10/2025 4:26 AM EST) Only the most recent of19 resultswithin the time period is included. Sodium 136 136 - 145 mmol/L 01/10/2025 5:18 AM EST [facility] Potassium 4.3 3.4 - 5.1 mmol/L 01/10/2025 5:18 AM EST [facility] Chloride 102 98 - 107 mmol/L 01/10/2025 5:18 AM EST [facility] CO2 21 20 - 31 mmol/L 01/10/2025 5:18 AM EST [facility] Anion Gap 13 3 - 17 mmol/L 01/10/2025 5:18 AM EST [facility] BUN 19 6 - 23 mg/dL 01/10/2025 5:18 AM EST [facility] Creatinine 0.94 0.60 - 1.30 mg/dL 01/10/2025 5:18 AM EST [facility] eGFR 97 >59 mL/min/1. 73m2 01/10/2025 5:18 AM EST [facility] Comment:Estimated glomerular filtration rate calculated using the CKD-EPI refit equation. Glucose 102(H) 70 - 99 mg/dL 01/10/2025 5:18 AM EST [facility] Calcium 8.8 8.5 - 10.5 mg/dL 01/10/2025 5:18 AM [facility] Blood (Blood) Venipuncture / Unknown 01/10/2025 4:26 AM EST 01/10/2025 4:34 AM EST us Doron Whitley [employer] LAB BLOOD BKR ORDERABLES Final Result Performing Organization Address City/State/[facility] Co de Phone Number [address] [address] * XR CHEST PA AND LATERAL 2 VIEWS (01/09/2025 10:39 AM EST) Anatomical Region Laterality Modality Chest Computed Radiogr aphy 01/09/2025 10:5 5 AM EST Impressions 01/09/2025 11:02 AM EST Status post median sternotomy. Airspace opacity in the right midlung unchanged and may be related to a focus of aspiration and/or pneumonia in the appropriate clinical setting. Unchanged opacity in the left base which may be related to atelectasis, aspiration and/or pneumonia in the appropriate clinical setting. Increased opacity in the left midlung compared to January 08, 2025. This may correlate to a region of pleural effusion in the region of the fissure or loculated pleural effusion better visualized on prior chest CT scan. Blunting of left costophrenic angle and thickening of left pleural stripe may be related to pleural thickening and/or pleural effusion. Unchanged enlargement of the thoracic aorta which is better characterized on chest CT. Unchanged mild elevation left hemidiaphragm. RECOMMENDATION: Follow-up is recommended to ensure clearing. Narrative 01/09/2025 11:02 AM EST XR CHEST PA AND LATERAL 2 VIEWS Referring clinician's provided indication for this examination in [facility]: S/P Cardiac Surgery COMPARISON: XR CHEST PORTABLE 2024- FINDINGS: Devices/Tubes/Lines: The patient is status post median sternotomy. There are multiple surgical skin edgardo overlying left hemithorax. Lungs: There is airspace opacity present in the right midlung and in the left base unchanged in appearance. No definite pulmonary edema is identified. Pleura: There is an increased area of opacity present in the left midlung when compared to January 08, 2025. This may correlate to a region of pleural effusion in the region of the fissure better visualized on chest CT scan. There is blunting of left costophrenic angle and thickening of left pleural stripe. No evidence for pneumothorax. Heart/Mediastinum: The cardiac silhouette is borderline enlarged and unchanged. Enlargement of the thoracic aorta is unchanged compared to prior chest radiograph. This is better characterized by chest CT. There is mild elevation left hemidiaphragm which is unchanged. Bones/Soft Tissues: Bony thorax and extrathoracic soft tissues are unchanged. Procedure Note Chilango Weaver MD - 01/09/2025 XR CHEST PA AND LATERAL 2 VIEWS Referring clinician's provided indication for this examination in [facility]:S/P Cardiac Surgery COMPARISON: XR CHEST PORTABLE FINDINGS: Devices/Tubes/Lines: The patient is status post median sternotomy. Thereare multiple surgical skin edgardo overlying left hemithorax. Lungs: There is airspace opacity present in the right midlung and in theleft base unchanged in appearance. No definite pulmonary edema isidentified. Pleura: There is an increased area of opacity present in the left midlungwhen compared to January 08, 2025. This may correlate to a region ofpleural effusion in the region of the fissure better visualized on chestCT scan. There is blunting of left costophrenic angle and thickening ofleft pleural stripe. No evidence for pneumothorax. Heart/Mediastinum: The cardiac silhouette is borderline enlarged andunchanged. Enlargement of the thoracic aorta is unchanged compared toprior chest radiograph. This is better characterized by chest CT. There ismild elevation left hemidiaphragm which is unchanged. Bones/Soft Tissues: Bony thorax and extrathoracic soft tissues areunchanged. IMPRESSION: Status post median sternotomy. Airspace opacity in the right midlung unchanged and may be related to afocus of aspiration and/or pneumonia in the appropriate clinicalsetting. Unchanged opacity in the left base which may be related to atelectasis,aspiration and/or pneumonia in the appropriate clinical setting. Increased opacity in the left midlung compared to January 08, 2025. Thismay correlate to a region of pleural effusion in the region of the fissureor loculated pleural effusion better visualized on prior chest CT scan. Blunting of left costophrenic angle and thickening of left pleural stripemay be related to pleural thickening and/or pleural effusion. Unchanged enlargement of the thoracic aorta which is better characterizedon chest CT. Unchanged mild elevation left hemidiaphragm. RECOMMENDATION: Follow-up is recommended to ensure clearing. Bobby Lopez PA-C IMG XR CHEST Final Re sult * (ABNORMAL) Hepatic Panel (LFTs) (01/09/2025 4:36 AM EST) Only the most recent of8 resultswithin the time period is included. AST 44(H) 10 - 40 U/L 01/09/2025 5:26 AM EST [facility] ALT 39 10 - 55 U/L 01/09/2025 5:26 AM EST [facility] Alkaline Phosphatase 99 40 - 130 U/L 01/09/2025 5:26 AM EST [facility] Bilirubin, Total 1.8(H) 0.0 - 1.2 mg/dL 01/09/2025 5:26 AM EST [facility] Bilirubin, Direct 0.9(H) 0.0 - 0.3 mg/dL 01/09/2025 5:26 AM [facility] Total Protein 6.6 6.4 - 8.3 g/dL 01/09/2025 5:26 AM [facility] Albumin 2.9(L) 3.5 - 5.2 g/dL 01/09/2025 5:26 AM [facility] Globulin 3.7 1.9 - 4.1 g/dL 01/09/2025 5:26 AM [facility] Blood (Blood) Venipuncture / Unknown 01/09/2025 4:36 AM EST 01/09/2025 5:00 AM EST Doron Whitley [facility] [place] BLOOD BKR ORDERABLES Final Result Performing Organization Address [facility] Co de Phone Number [address] [address] * PTT (01/09/2025 4:36 AM EST) Only the most recent of14 resultswithin the time period is included. PTT 26.0 24.0 - 37.5 sec 01/09/2025 5:35 AM [facility] Comment:See MAR for therapeu tic range. Emicizumab (Hemlibra) treatment can result in falsely lowered aPTT test results. Blood (Blood) Venipuncture / Unknown 01/09/2025 4:36 AM EST 01/09/2025 5:00 AM EST [facility] Final Result Performing Organization Address City/[facility] Co de Phone Number [address] [address] * (ABNORMAL) PT-INR (01/09/2025 4:36 AM EST) Only the most recent of15 resultswithin the time period is included. PT 13.2(H) 10.0 - 13.0 sec 01/09/2025 5:35 AM [facility] INR 1.2(H) 0.9 - 1.1 01/09/2025 5:35 AM [facility] Comment:Therapeutic Range 2. 0 - 3.5 Blood (Blood) Venipuncture / Unknown 01/09/2025 4:36 AM EST 01/09/2025 5:00 AM EST [facility] LAB BLOOD BKR ORDERABLES Final Result Performing Organization Address City/[facility] Co de Phone Number [address] [address] * Phosphorus (01/09/2025 4:36 AM EST) Only the most recent of16 resultswithin the time period is included. Phosphorus 2.6 2.5 - 4.5 mg/dL 01/09/2025 5:26 AM EST [facility] Blood (Blood) Venipuncture / Unknown 01/09/2025 4:36 AM EST 01/09/2025 5:00 AM EST [facility] LAB BLOOD BKR ORDERABLES Final Result Performing Organization Address City/[facility] Co de Phone Number [address] [address] * XR Chest Portable (01/08/2025 9:42 AM EST) Anatomical Region Laterality Modality Chest Computed Radiogr aphy 01/08/2025 12:1 9 PM EST Impressions 01/08/2025 12:21 PM EST No pneumothorax following removal of left chest tubes. Stable right midlung opacity which may reflect aspiration and/or pneumonia. Unchanged left lung patchy atelectasis. Narrative 01/08/2025 12:21 PM EST XR CHEST PORTABLE Referring clinician's provided indication for this examination in Epic: Chest Tube Removal COMPARISON: XR CHEST PORTABLE 06:44:00.000 FINDINGS: Devices/Tubes/Lines: None. Lungs: Unchanged patchy right midlung and left basilar atelectasis. No pulmonary edema. Pleura: No pneumothorax. No distention or pleural effusion. Heart/Mediastinum: Stable enlarged cardiomediastinal silhouette and postoperative changes Bones/Soft Tissues: Status post bilateral sternotomy Procedure Note Cortez Neves MD - 01/08/2025 XR CHEST PORTABLE Referring clinician's provided indication for this examination in [facility]:Chest Tube Removal COMPARISON: XR CHEST PORTABLE 06:44:00.000 FINDINGS: Devices/Tubes/Lines: None. Lungs: Unchanged patchy right midlung and left basilar atelectasis. Nopulmonary edema. Pleura: No pneumothorax. No distention or pleural effusion. Heart/Mediastinum: Stable enlarged cardiomediastinal silhouette andpostoperative changes Bones/Soft Tissues: Status post bilateral sternotomy IMPRESSION: No pneumothorax following removal of left chest tubes. Stable right midlung opacity which may reflect aspiration and/orpneumonia. Unchanged left lung patchy atelectasis. us Nicky Mari PA-C IMG XR CHEST Fin al Result * XR Chest Portable (01/08/2025 6:46 AM EST) Anatomical Region Laterality Modality Chest Computed Radiogr aphy 01/08/2025 11:2 1 AM EST Impressions 01/08/2025 11:23 AM EST Unchanged LEFT chest tubes. No pneumothorax. Small LEFT pleural effusion. Clear RIGHT pleural space. RIGHT midlung opacity could represent aspiration and/or pneumonia. Follow-up to resolution is advised. Narrative 01/08/2025 11:23 AM EST XR CHEST PORTABLE Referring clinician's provided indication for this examination in [facility]: Pleural Effusion COMPARISON: XR CHEST PORTABLE FINDINGS: Devices/Tubes/Lines: LEFT chest tubes are unchanged. Lungs: There are retrocardiac opacities silhouetting the diaphragm. Unchanged patchy RIGHT midlung opacity. Pleura: Small LEFT pleural effusion. Clear RIGHT pleural space. Heart/Mediastinum: The aortic knob is not well defined. Bones/Soft Tissues: Median sternotomy wires are unchanged. Procedure Note Osiel Barth MD - 01/08/2025 XR CHEST PORTABLE Referring clinician's provided indication for this examination in [facility]:Pleural Effusion COMPARISON: XR CHEST PORTABLE FINDINGS: Devices/Tubes/Lines: LEFT chest tubes are unchanged. Lungs: There are retrocardiac opacities silhouetting the diaphragm.Unchanged patchy RIGHT midlung opacity. Pleura: Small LEFT pleural effusion. Clear RIGHT pleural space. Heart/Mediastinum: The aortic knob is not well defined. Bones/Soft Tissues: Median sternotomy wires are unchanged. IMPRESSION: Unchanged LEFT chest tubes. No pneumothorax. Small LEFT pleural effusion. Clear RIGHT pleural space. RIGHT midlung opacity could represent aspiration and/or pneumonia.Follow-up to resolution is advised. Bobby Lopez PA-C IMG XR CHEST Final Re sult * Type and Screen (ABO, Rh, Antibody Screen) (01/08/2025 4:32 AM EST) Only the most recent of2 resultswithin the time period is included. ABO/Rh B POS 01/08/2025 5:15 AM EST [facility] Antibody Screen NEG 5:15 AM EST [facility] Sample Expiration 01/11/2025 23:59 01/08/2025 5:15 AM EST [facility] Blood (Blood) Venipuncture / Unknown 01/08/2025 4:32 AM EST 01/08/2025 4:36 AM EST Bobby Lopez PA-C LAB BLOOD BANK TEST ORDE RABLES Final Result [facility] [address] [place] [id number] * Lactate, Whole Blood (01/07/2025 12:32 AM EST) Only the most recent of38 resultswithin the time period is included. Lactate, Whole Blood 1.1 0.5 - 2.0 mmol/L 01/07/2025 12:46 AM EST [facility] Blood (Blood, Arterial) Catheter/Line / Unknown 01/07/2025 12:32 AM EST 01/07/2025 12:41 AM EST Gulshan Boyle [employer] LAB BLOOD BKR ORDERABLES Fin al Result [address] [address] * (ABNORMAL) Sodium, Whole Blood (01/07/2025 12:32 AM EST) Only the most recent of36 resultswithin the time period is included. Sodium, Whole Blood 135(L) 136 - 145 mmol/L 01/07/2025 12:46 AM EST [facility] Blood (Blood, Arterial) Catheter/Line / Unknown 01/07/2025 12:32 AM EST 01/07/2025 12:41 AM EST us Gulshan Boyle [employer] LAB BLOOD BKR ORDERABLES Fin al Result Performing Organization Address City/[facility]/ZIP Co de Phone Number [address] [address] * (ABNORMAL) HEMOGLOBIN, WHOLE BLOOD (01/07/2025 12:32 AM EST) Only the most recent of37 resultswithin the time period is included. Hemoglobin, Blood Gas 10.0(L) 13.5 - 17.5 g/dl 01/07/2025 12:46 AM EST [facility] Blood (Blood, Arterial) Catheter/Line / Unknown 01/07/2025 12:32 AM EST 01/07/2025 12:41 AM EST us Gulshan Boyle [employer] LAB BLOOD BKR ORDERABLES Fin al Result [address] [address] * (ABNORMAL) GLUCOSE, WHOLE BLOOD (01/07/2025 12:32 AM EST) Only the most recent of38 resultswithin the time period is included. Glucose, Whole Blood 115(H) 70 - 99 mg/dl 01/07/2025 12:46 AM EST [facility] Blood (Blood, Arterial) Catheter/Line / Unknown 01/07/2025 12:32 AM EST 01/07/2025 12:41 AM EST us Gulshan Boyle [facility] LAB BLOOD BKR ORDERABLES Fin al Result Performing Organization Address City/[facility]/ZIP Co de Phone Number [address] [address] * POTASSIUM, WHOLE BLOOD (01/07/2025 12:32 AM EST) Only the most recent of40 resultswithin the time period is included. Potassium, Whole Blood 3.6 3.4 - 5.1 mmol/L 01/07/2025 12:46 AM EST [facility] Blood (Blood, Arterial) Catheter/Line / Unknown 01/07/2025 12:32 AM EST 01/07/2025 12:41 AM EST us Gulshan Boyle [facility] LAB BLOOD BKR ORDERABLES Fin al Result Performing Organization Address [facility] Co de Phone Number [address] [address] * (ABNORMAL) Arterial Blood Gas (ABG) (01/07/2025 12:32 AM EST) Only the most recent of35 resultswithin the time period is included. pH, Arterial 7.49(H) 7.35 - 7.45 01/07/2025 12:46 AM EST [facility] pCO2, Arterial 35 35 - 42 mm[Hg] 01/07/2025 12:46 AM EST [facility] pO2, Arterial 115(H) 80 - 100 mm[Hg] 01/07/2025 12:46 AM EST [facility] Bicarbonate (HCO3) 26 22 - 27 mmol/L 01/07/2025 12:46 AM EST [facility] Base Excess 2.8 -3.0 - 3.0 mmol/L 01/07/2025 12:46 AM EST [facility] Oxygen Saturation, Arterial 98.9 94.0 - 99.9 % 01/07/2025 12:46 AM EST [facility] Blood (Blood, Arterial) Catheter/Line / Unknown 01/07/2025 12:32 AM EST 01/07/2025 12:41 AM EST us Gulshan Boyle [facility] LAB BLOOD BKR ORDERABLES Fin al Result Performing Organization Address City/[facility] Co de Phone Number [address] [address] * (ABNORMAL) Ionized Calcium (01/07/2025 12:32 AM EST) Only the most recent of35 resultswithin the time period is included. Ionized Calcium 1.10(L) 1.14 - 1.30 mmol/L 01/07/2025 12:46 AM EST [facility] Blood (Blood, Arterial) Catheter/Line / Unknown 01/07/2025 12:32 AM EST 01/07/2025 12:41 AM EST us Gulshan Boyle [employer] LAB BLOOD BKR ORDERABLES Fin al Result Performing Organization Address [facility] Co de Phone Number [address] [address] * XR Chest Portable (01/06/2025 9:54 PM EST) Anatomical Region Laterality Modality Chest Computed Radiogr aphy 01/07/2025 10:2 6 AM EST Impressions 01/07/2025 10:32 AM EST Status post LEFT thoracotomy. Widening of the LEFT superior mediastinum corresponds to periaortic fluid likely postoperative changes as demonstrated on CT. Stable small LEFT pleural effusion. No pneumothorax. Retrocardiac opacities and increase RIGHT upper lobe consolidation consistent with multifocal pneumonia as demonstrated on CT. Narrative 01/07/2025 10:32 AM EST XR CHEST PORTABLE Referring clinician's provided indication for this examination in Epic: Post-Op COMPARISON: XR CHEST PORTABLE FINDINGS: Devices/Tubes/Lines: Chest tubes are noted at the LEFT base. Lungs: Lungs are moderately inflated. No definite pulmonary edema. Complete opacification in the LEFT retrocardiac and RIGHT retrocardiac regions unchanged. Focal patchy opacity at the RIGHT upper lobe abutting the major fissure unchanged. Pleura: Stable small LEFT pleural effusion. No pneumothorax. Heart/Mediastinum: Stable widening of the LEFT superior mediastinum adjacent to the aortic arch likely representing postoperative changes. Bones/Soft Tissues: Status post LEFT thoracotomy. Procedure Note Yomaira Nielsen-Lalita Hancock MD - 01/07/2025 XR CHEST PORTABLE Referring clinician's provided indication for this examination in Epic:Post-Op COMPARISON: XR CHEST PORTABLE FINDINGS: Devices/Tubes/Lines: Chest tubes are noted at the LEFT base. Lungs: Lungs are moderately inflated. No definite pulmonary edema.Complete opacification in the LEFT retrocardiac and RIGHT retrocardiacregions unchanged. Focal patchy opacity at the RIGHT upper lobe abuttingthe major fissure unchanged. Pleura: Stable small LEFT pleural effusion. No pneumothorax. Heart/Mediastinum: Stable widening of the LEFT superior mediastinumadjacent to the aortic arch likely representing postoperative changes. Bones/Soft Tissues: Status post LEFT thoracotomy. IMPRESSION: Status post LEFT thoracotomy. Widening of the LEFT superior mediastinum corresponds to periaortic fluidlikely postoperative changes as demonstrated on CT. Stable small LEFT pleural effusion. No pneumothorax. Retrocardiac opacities and increase RIGHT upper lobe consolidationconsistent with multifocal pneumonia as demonstrated on CT. Doron LOZANO IMG XR CHEST Final Res ult * Arterial Oxygen Saturation (01/06/2025 5:06 PM EST) Only the most recent of27 resultswithin the time period is included. Oxygen Saturation, Arterial 97.7 94.0 - 99.9 % 01/06/2025 5:15 PM EST [facility] Blood (Blood, Arterial) Catheter/Line / Unknown 01/06/2025 5:06 PM EST 01/06/2025 5:10 PM EST Gulshan Boyle [employer] LAB BLOOD BKR ORDERABLES Fin al Result [facility] [address] [place] [address] * POCT Glucose (01/06/2025 12:43 PM EST) Only the most recent of10 resultswithin the time period is included. Glucose 86 70 - 99 mg/dL 01/06/2025 12:45 PM EST [facility] LAB GROUPS 1 & 2 Blood (Blood) 01/06/2025 12: 43 PM EST 01/06/2025 12:45 PM EST us Doron LOZANO LAB POCT DOCKED DEVICE UN SOLICTED RESULTS Final Result Performing Organization Address [facility] Co de Phone Number [facility] SPECIAL [facility] LAB GROUPS 1 & 2 [address] [place] [address] * (ABNORMAL) Urinalysis (01/06/2025 11:21 AM EST) Color Light Yellow Yellow 01/06/2025 11:52 AM EST [facility] Clarity Clear Clear 01/06/2025 11:52 AM EST [facility] Glucose Negative Negative 01/06/2025 11:52 AM EST [facility] Bilirubin Urine Negative Negative 11:52 AM EST [facility] Ketone Urine Negative Negative 01/06/2025 11:52 AM EST [facility] Specific Graham 1.007 1.001 - 1.035 01/06/2025 11:52 AM EST [facility] Blood Trace(A) Negative 01/06/2025 11:52 AM EST [facility] pH 6.5 5.0 - 8.0 01/06/2025 11:52 AM EST [facility] Protein Negative Negative 01/06/2025 11:52 AM EST [facility] Nitrites Negative Negative 01/06/2025 11:52 AM EST [facility] Leukocyte Esterase Negative Negative 01/06/2025 11:52 AM EST [facility] Urobilinogen Negative Negative 01/06/2025 11:52 AM EST [facility] Urine (Urine, Voided) 01/06/2025 11:21 AM EST 01/06/2025 11:38 AM EST us Doron LOZANO LAB URINE ORDERABLES Mayra l Result Performing Organization Address City/[facility]/ZIP Co de Phone Number [facility] [address] [place] [address] * XR Chest Portable (01/05/2025 9:45 PM EST) Anatomical Region Laterality Modality Chest Computed Radiogr aphy 01/06/2025 9:30 AM EST Impressions 01/06/2025 1:12 PM EST Trace left pleural effusion. Bilateral lower lobe opacification, with better evaluated on prior CT. Increased opacification of the right midlung zone, concerning for aspiration/infection. ATTESTATION: I, Dr. Annmarie Hill as teaching physician, have reviewed the images for this case and if necessary edited the report originally created by Jessica Urbano. Narrative 01/06/2025 1:12 PM EST XR CHEST PORTABLE Referring clinician's provided indication for this examination in [facility]: S/P Cardiac Surgery COMPARISON: XR CHEST PORTABLE 14:36:27.000; CT CHEST PULMONARY ANGIOGRAM (ACUTE) 16:00:23.000 FINDINGS: Devices/Tubes/Lines: Left chest tubes tip overlying the left mid and lower lung zone. Lungs: Low lung volumes. Increased opacification of the right midlung zone. Bilateral lower lobe opacification. Pleura: No pneumothorax. Mild blunting of the left costophrenic angle. Heart/Mediastinum: Unchanged widening of the upper mediastinum. Expected post-surgical changes following median sternotomy and cardiac surgery. Bones/Soft Tissues: No significant acute skeletal abnormality. Median sternotomy wires are intact. Bony thorax and extrathoracic soft tissues are unchanged. Surgical clips in the left axilla end left upper quadrant.. Procedure Note Annmarie Hill MD - 01/06/2025 XR CHEST PORTABLE Referring clinician's provided indication for this examination in [facility]:S/P Cardiac Surgery COMPARISON: XR CHEST PORTABLE 14:36:27.000; CT CHEST PULMONARYANGIOGRAM (ACUTE) 16:00:23.000 FINDINGS: Devices/Tubes/Lines: Left chest tubes tip overlying the left mid and lowerlung zone. Lungs: Low lung volumes. Increased opacification of the right midlungzone. Bilateral lower lobe opacification. Pleura: No pneumothorax. Mild blunting of the left costophrenic angle. Heart/Mediastinum: Unchanged widening of the upper mediastinum. Expectedpost- surgical changes following median sternotomy and cardiac surgery. Bones/Soft Tissues: No significant acute skeletal abnormality. Mediansternotomy wires are intact. Bony thorax and extrathoracic soft tissuesare unchanged. Surgical clips in the left axilla end left upperquadrant.. IMPRESSION: Trace left pleural effusion. Bilateral lower lobe opacification, with better evaluated on prior CT. Increased opacification of the right midlung zone, concerning foraspiration/infection. ATTESTATION: I, Dr. Annmarie Hill as teaching physician, have reviewedthe images for this case and if necessary edited the report originallycreated by Jessica Urbano. Magali Baig [facility] IMG XR CHEST Fi nal Result * (ABNORMAL) D-Dimer (01/05/2025 4:54 PM EST) D-Dimer 6,214(H) <500 ng/mL FEU 01/05/2025 5:31 PM EST [facility] Comment:A negative D-dimer r esult (at a cut off of 500 ng/mL FEU) when combined with a clinical assessment of low pretest probability has been shown to have a high negative predictive value for DVT or PE. Clinical correlation is required. Blood (Blood) Catheter/Line / Unknown 01/05/2025 4:54 PM EST 01/05/2025 4:57 PM EST Maagli Baig [facility] LAB BLOOD BKR YAHIRRigoberto MCGREGOR Final Result [address] [address] * CT CHEST PULMONARY ANGIOGRAM (ACUTE) (01/05/2025 4:06 PM EST) Anatomical Region Laterality Modality Chest, Thoracic Vasculature Comp uted Tomography 01/05/2025 4:07 PM EST Impressions 01/05/2025 4:38 PM EST * No evidence of pulmonary embolism. * Mixed atelectasis/pneumonia in the bilateral dependent lungs, likely related to aspiration. * Soft tissue stranding, thickening, and locules of air within the descending thoracic aortic graft surgical bed, not unexpected within the early postoperative period and favored to reflect early postoperative changes. * Multiple left sided chest tubes are in place. Tiny loculated hydropneumothoraces within the posterior left pleura. * Multiple air-fluid levels in the partially visualized bowel favor related to postoperative ileus. Correlation with point tenderness/abdominal KUB is recommended to rule out underlying obstructive etiology. * Aneurysm of the aortic root, measuring up to 5.6 cm. 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 Narrative 01/05/2025 4:[address] CHEST PULMONARY ANGIOGRAM (ACUTE) Referring clinician's provided indication for this examination in Epic: * PE suspected, high prob TECHNIQUE: Multidetector CT pulmonary angiography was performed after administration of intravenous contrast using tailored dose modulation techniques. Dual energy technique was utilized. 3D angiographic postprocessing techniques were acquired in the form of axial maximum intensity projection images (MIPS). COMPARISON: CT CHEST OUTSIDE (NO INTERPRETATION) FINDINGS: Pulmonary Angiogram: Technical quality: There is adequate opacification of the pulmonary arteries. There is no filling defect to suggest pulmonary embolism. There are no CT findings of right heart strain. Dual energy perfusion maps show no mismatched perfusion defects. Proximal to the bifurcation of the main pulmonary artery, the main pulmonary artery is 3.2 cm in diameter. Devices/Tubes/Lines: Multiple left-sided chest tubes terminate in the paramediastinal and posterior pleura. Lungs: Bilateral lower lobe and dependent upper lobe consolidations which demonstrate heterogenous enhancement, compatible with mixed atelectasis/pneumonia. Scattered ill-defined centrilobular groundglass opacities throughout the lung. Pleura: Loculated tiny hydropneumothoraces involving the posterior left pleura (for example 11:58, 195). No right pleural effusion or pneumothorax. Mediastinum: Patient is postop day 3 descending thoracic aortic repair. There is extensive soft tissue thickening, stranding, and tiny locules of air within the surgical bed. Status post removal sparing ascending thoracic aortic repair. There aortic root aneurysm measuring up to 5.6 cm at the site of the Valsalva (3D by ). Unchanged dissection flap extending from the aortic arch into the brachiocephalic artery and proximal right subclavian artery. Additional dissection flap extends from the distal aspect of the descending thoracic aortic graft into the proximal abdominal aorta. There is persistent opacification involving both the true and false lumens. No discrete thyroid nodule. Normal cardiac chamber size. Trace pericardial effusion. Lymph Nodes: Prominent mediastinal lymph nodes, likely reactive. Upper Abdomen: Multiple air-fluid levels within the partially visualized bowel. Chest Wall: No chest wall mass. Soft tissue anasarca. Bones: Median sternotomy postsurgical changes minimal cortical step-off. No lytic or blastic osseous lesion. Procedure Note Lines, Viral Rizo MD - 01/05/2025 CT CHEST PULMONARY ANGIOGRAM (ACUTE) Referring clinician's provided indication for this examination in Epic: *PE suspected, high prob TECHNIQUE: Multidetector CT pulmonary angiography was performed afteradministration of intravenous contrast using tailored dose modulationtechniques. Dual energy technique was utilized. 3D angiographicpostprocessing techniques were acquired in the form of axial maximumintensity projection images (MIPS). COMPARISON: CT CHEST OUTSIDE (NO INTERPRETATION) FINDINGS: Pulmonary Angiogram: Technical quality: There is adequate opacification of the pulmonaryarteries. There is no filling defect to suggest pulmonary embolism. There are no CT findings of right heart strain. Dual energy perfusion maps show no mismatched perfusion defects. Proximal to the bifurcation of the main pulmonary artery, the mainpulmonary artery is 3.2 cm in diameter. Devices/Tubes/Lines: Multiple left-sided chest tubes terminate in theparamediastinal and posterior pleura. Lungs: Bilateral lower lobe and dependent upper lobe consolidations whichdemonstrate heterogenous enhancement, compatible with mixedatelectasis/pneumonia. Scattered ill-defined centrilobular groundglassopacities throughout the lung. Pleura: Loculated tiny hydropneumothoraces involving the posterior leftpleura (for example 11:58, 195). No right pleural effusion orpneumothorax. Mediastinum: Patient is postop day 3 descending thoracic aortic repair.There is extensive soft tissue thickening, stranding, and tiny locules ofair within the surgical bed. Status post removal sparing ascendingthoracic aortic repair. There aortic root aneurysm measuring up to 5.6 cmat the site of the Valsalva (3D by ). Unchanged dissection flapextending from the aortic arch into the brachiocephalic artery andproximal right subclavian artery. Additional dissection flap extends fromthe distal aspect of the descending thoracic aortic graft into theproximal abdominal aorta. There is persistent opacification involving boththe true and false lumens. No discrete thyroid nodule. Normal cardiacchamber size. Trace pericardial effusion. Lymph Nodes: Prominent mediastinal lymph nodes, likely reactive. Upper Abdomen: Multiple air-fluid levels within the partially visualizedbowel. Chest Wall: No chest wall mass. Soft tissue anasarca. Bones: Median sternotomy postsurgical changes minimal cortical step-off.No lytic or blastic osseous lesion. IMPRESSION: * No evidence of pulmonary embolism. * Mixed atelectasis/pneumonia in the bilateral dependent lungs, likelyrelated to aspiration. * Soft tissue stranding, thickening, and locules of air [facility] graft surgical bed, not unexpected within theearly postoperative period and favored to reflect early postoperativechanges. * Multiple left sided chest tubes are in place. Tiny loculatedhydropneumothoraces within the posterior left pleura. * Multiple air-fluid levels in the partially visualized bowel favorrelated to postoperative ileus. Correlation with pointtenderness/abdominal KUB is recommended to rule out underlying obstructiveetiology. * Aneurysm of the aortic root, measuring up to 5.6 cm. * Unchanged dissection flap extending into the brachiocephalic artery,right subclavian artery, and distally involving the abdominal aorta. Magali Baig [employer] IMG CT CHEST Fi nal Result * XR Chest Portable (01/05/2025 2:44 PM EST) Anatomical Region Laterality Modality Chest Computed Radiogr aphy 01/05/2025 5:21 PM EST Impressions 01/05/2025 5:23 PM EST No pneumothorax. Retrocardiac opacification likely represents underlying atelectasis without change. Small RIGHT pleural effusion in the RIGHT major fissure. Stable widening of the LEFT superior mediastinum, likely postoperative change. Narrative 01/05/2025 5:23 PM EST XR CHEST PORTABLE Referring clinician's provided indication for this examination in Epic: Chest Tube Removal COMPARISON: XR CHEST PORTABLE 05:57:47.000 FINDINGS: Devices/Tubes/Lines: LEFT chest tube is noted at the LEFT lung base. The seminal drain was removed. Lungs: Volumes are low. There is persistent opacification in the retrocardiac regions bilaterally. No pulmonary edema. Pleura: Small RIGHT pleural effusion is noted within the RIGHT major fissure. No pneumothorax. Heart/Mediastinum: There is stable widening of the LEFT superior mediastinum status post surgery. Bones/Soft Tissues: Sternotomy sutures are stable. Surgical edgardo are present in the LEFT chest wall. Procedure Note Dai Nielsen MD - 01/05/2025 XR CHEST PORTABLE Referring clinician's provided indication for this examination in Epic:Chest Tube Removal COMPARISON: XR CHEST PORTABLE 05:57:47.000 FINDINGS: Devices/Tubes/Lines: LEFT chest tube is noted at the LEFT lung base. Theseminal drain was removed. Lungs: Volumes are low. There is persistent opacification in theretrocardiac regions bilaterally. No pulmonary edema. Pleura: Small RIGHT pleural effusion is noted within the RIGHT majorfissure. No pneumothorax. Heart/Mediastinum: There is stable widening of the LEFT superiormediastinum status post surgery. Bones/Soft Tissues: Sternotomy sutures are stable. Surgical edgardo arepresent in the LEFT chest wall. IMPRESSION: No pneumothorax. Retrocardiac opacification likely represents underlying atelectasiswithout change. Small RIGHT pleural effusion in the RIGHT major fissure. Stable widening of the LEFT superior mediastinum, likely postoperativechange. Celina Ro [employer] IMG XR CHEST Final Result * Bedside Ultrasound (01/05/2025 11:10 AM EST) Doron Whitley MBBS IMG POINT OF CARE EXAMS F inal Result * XR Chest Portable (01/05/2025 6:00 AM EST) Anatomical Region Laterality Modality Chest Computed Radiogr aphy 01/05/2025 8:44 AM EST Impressions 01/05/2025 12:23 PM EST No pneumothorax. Gastric gaseous distention. Increased bibasilar subsegmental atelectasis. ATTESTATION: I, Dr. Dai Nielsen as teaching physician, have reviewed the images for this case and if necessary edited the report originally created by Kat Pride. Narrative 01/05/2025 12:23 PM EST XR CHEST PORTABLE Referring clinician's provided indication for this examination in [facility]: Pneumothorax; Post-Op COMPARISON: XR CHEST PORTABLE FINDINGS: Devices/Tubes/Lines: A left IJ central venous introducer sheath is demonstrated with distal tip overlying the left internal jugular vein. Left apical and 2 left basilar chest tubes in place. Lungs: Low lung volumes. Increased left retrocardiac patchy opacities. No pulmonary edema. Pleura: No pleural effusion or pneumothorax. Heart/Mediastinum: Post median sternotomy and cardiac surgery. Unchanged mildly enlarged cardiac silhouette. Mediastinal surgical clips. Stable widening of the aortic arch and descending aorta. Bones/Soft Tissues: Surgical skin edgardo overlying the left hemithorax. Unchanged bowel gaseous distention within the upper abdomen. Bony thorax and extrathoracic soft tissues are unchanged. Procedure Note Dai Nielsen MD - 01/05/2025 XR CHEST PORTABLE Referring clinician's provided indication for this examination in [facility]:Pneumothorax; Post-Op COMPARISON: XR CHEST PORTABLE FINDINGS: Devices/Tubes/Lines: A left IJ central venous introducer sheath isdemonstrated with distal tip overlying the left internal jugular vein.Left apical and 2 left basilar chest tubes in place. Lungs: Low lung volumes. Increased left retrocardiac patchy opacities. Nopulmonary edema. Pleura: No pleural effusion or pneumothorax. Heart/Mediastinum: Post median sternotomy and cardiac surgery. Unchangedmildly enlarged cardiac silhouette. Mediastinal surgical clips. Stablewidening of the aortic arch and descending aorta. Bones/Soft Tissues: Surgical skin edgardo overlying the left hemithorax.Unchanged bowel gaseous distention within the upper abdomen. Bony thoraxand extrathoracic soft tissues are unchanged. IMPRESSION: No pneumothorax. Gastric gaseous distention. Increased bibasilar subsegmental atelectasis. ATTESTATION: I, Dr. Dai Nielsen as teaching physician, have reviewedthe images for this case and if necessary edited the report originallycreated by Kat Pride. Paras Braun [employer] IMG XR CHEST Final Result * (ABNORMAL) Troponin (01/05/2025 5:00 AM EST) Troponin-T HS Gen5 651(H) 0 - 14 ng/L 01/05/2025 5:34 AM EST [facility] Blood (Blood) Catheter/Line / Unknown 01/05/2025 5:00 AM EST 01/05/2025 5:07 AM EST us [employer] LAB BLOOD BKR ORDERABLES Final Result [address] [address] * ECG 12-LEAD (01/05/2025 3:37 AM EST) Only the most recent of2 resultswithin the time period is included. Systolic Blood Pressure 143 mmHg [facility] Diastolic Blood Pressure 74 mmHg [facility] Ventricular Rate EKG/MIN 135 BPM [facility] Atrial Rate 135 BPM [facility] DE Interval 136 ms [facility] QRS Duration 86 ms [facility] QT Interval 292 ms [facility] QTC Interval 438 ms [facility] P [place] 50 degrees [facility] R Wave [place] 10 degrees [facility] T Wave [place] 59 degrees [facility] 01/05/2025 3:37 AM EST 01/15/2025 5:33 PM EST Narrative [facility] - 01/15/2025 5:33 PM EST LOC: [id number] DX: ARRHYTHMIA REF: GULSHAN BOYLE SINUS TACHYCARDIA NONSPECIFIC ST SEGMENT AND T WAVE ABNORMALITIES WHEN COMPARED WITH ECG OF 04-Jan-2025 06:21, HEART RATE HAS INCREASED Electronically Signed in [facility] system. Confirmed by Regan URENA, SEAN Villegas ([id number]) on 01/15/2025 5:33:36 PM us Gulshan Boyle [employer] ECG ORDERABLES Final Result [facility] * XR Chest Portable (01/04/2025 10:19 PM EST) Anatomical Region Laterality Modality Chest Computed Radiogr aphy 01/05/2025 8:39 AM EST Impressions 01/05/2025 12:19 PM EST Post surgical changes, tubes and lines as described. No pneumothorax. Increased bibasilar subsegmental atelectasis. Gastric gaseous distention. ATTESTATION: I, Dr. Dai Nielsen as teaching physician, have reviewed the images for this case and if necessary edited the report originally created by Kat Pride. Narrative 01/05/2025 12:19 PM EST XR CHEST PORTABLE Referring clinician's provided indication for this examination in [facility]: Post-Op COMPARISON: XR CHEST PORTABLE FINDINGS: Devices/Tubes/Lines: A left IJ central venous introducer sheath is demonstrated with distal tip overlying the left brachiocephalic vein. Left apical and 2 left basilar chest tubes in place. Lungs: Low lung volumes. Increased bibasilar and left lingular patchy opacities. No pulmonary edema. Pleura: No pleural effusion or pneumothorax. Heart/Mediastinum: Post median sternotomy and cardiac surgery. Unchanged mildly enlarged cardiac silhouette. Mediastinal surgical clips. Bones/Soft Tissues: Surgical skin edgardo overlying the left hemithorax. Bowel gaseous distention within the upper abdomen. Bony thorax and extrathoracic soft tissues are unchanged. Procedure Note Dai Nielsen MD - 01/05/2025 XR CHEST PORTABLE Referring clinician's provided indication for this examination in [facility]:Post-Op COMPARISON: XR CHEST PORTABLE FINDINGS: Devices/Tubes/Lines: A left IJ central venous introducer sheath isdemonstrated with distal tip overlying the left brachiocephalic vein.Left apical and 2 left basilar chest tubes in place. Lungs: Low lung volumes. Increased bibasilar and left lingular patchyopacities. No pulmonary edema. Pleura: No pleural effusion or pneumothorax. Heart/Mediastinum: Post median sternotomy and cardiac surgery. Unchangedmildly enlarged cardiac silhouette. Mediastinal surgical clips. Bones/Soft Tissues: Surgical skin edgardo overlying the left hemithorax.Bowel gaseous distention within the upper abdomen. Bony thorax andextrathoracic soft tissues are unchanged. IMPRESSION: Post surgical changes, tubes and lines as described. No pneumothorax. Increased bibasilar subsegmental atelectasis. Gastric gaseous distention. ATTESTATION: I, Dr. Dai Nielsen as teaching physician, have reviewedthe images for this case and if necessary edited the report originallycreated by Kat Pride. Paras Braun [employer] IMG XR CHEST Final Result * Speech Endoscopic Evaluation Image Capture (01/04/2025 1:52 PM EST) Narrative SYSTEMGENERATED, DOCUMENTATION - 01/04/2025 1:52 PM EST Please see [facility] notes for Speech Pathology interpretation and recommendations of Endoscopic Evaluation of Swallowing (FEES) study corresponding to this date Darshana King [employer], DNP IMG POINT OF CARE EXAMS Final Result * XR ABDOMEN 1 VIEW (01/04/2025 7:35 AM EST) Anatomical Region Laterality Modality Abdomen Computed Radiogr aphy 01/04/2025 8:53 AM EST Impressions 01/04/2025 9:44 AM EST Ile[facility]. Narrative 01/04/2025 9:44 AM EST XR ABDOMEN 1 VIEW Referring clinician's provided indication for this examination in [facility]: Abdominal distension COMPARISON: CT CHEST OUTSIDE (NO INTERPRETATION) FINDINGS: Lines/Tubes/Devices: Lumbar drain projects over the left para-midline thoracolumbar spine. Bladder catheter projects over the pelvis. Three left chest tubes project over the left lower thorax. Bowel: Gaseous dilatation of loops of small bowel up to 4.5 cm. Soft tissues: Surgical clips project over the bilateral inguina. Cutaneous closure edgardo project left lateral thorax and left inguina. Procedure Note Sean Barry MD, PhD - 01/04/2025 XR ABDOMEN 1 VIEW Referring clinician's provided indication for this examination in [facility]:Abdominal distension COMPARISON: CT CHEST OUTSIDE (NO INTERPRETATION) FINDINGS: Lines/Tubes/Devices: Lumbar drain projects over the left para- midlinethoracolumbar spine. Bladder catheter projects over the pelvis. Three leftchest tubes project over the left lower thorax. Bowel: Gaseous dilatation of loops of small bowel up to 4.5 cm. Soft tissues: Surgical clips project over the bilateral inguina. Cutaneousclosure edgardo project left lateral thorax and left inguina. IMPRESSION: Ileus. Darshana Celis Fernando [employer], DNP IMG XR ABDOMEN F inal Result * XR Chest Portable (01/03/2025 10:03 PM EST) Anatomical Region Laterality Modality Chest Computed Radiogr aphy 01/04/2025 10:0 8 AM EST Impressions 01/04/2025 10:11 AM EST Status post median sternotomy. Tubes and lines as described. Low lung volumes. Persistent patchy atelectasis base of the LEFT lung unchanged. Cardiomegaly Narrative 01/04/2025 10:11 AM EST XR CHEST PORTABLE Referring clinician's provided indication for this examination in [facility]: Post-Op; S/P Cardiac Surgery COMPARISON: XR CHEST PORTABLE 02:39:47.000 FINDINGS: Devices/Tubes/Lines: There has been a median sternotomy. The endotracheal tube has been removed. There are 3 left-sided chest tubes in place. Lungs: The lung volumes are low. The RIGHT lung appears clear. There is elevation of the LEFT hemidiaphragm with patchy atelectasis at the LEFT base. Pleura: Normal. No pleural effusion or pneumothorax. Heart/Mediastinum: The heart is enlarged Bones/Soft Tissues: There has been a median sternotomy Procedure Note Annmarie Hill MD - 01/04/2025 XR CHEST PORTABLE Referring clinician's provided indication for this examination in [facility]:Post-Op; S/P Cardiac Surgery COMPARISON: XR CHEST PORTABLE 02:39:47.000 FINDINGS: Devices/Tubes/Lines: There has been a median sternotomy. The endotrachealtube has been removed. There are 3 left-sided chest tubes in place. Lungs: The lung volumes are low. The RIGHT lung appears clear. There iselevation of the LEFT hemidiaphragm with patchy atelectasis at the LEFTbase. Pleura: Normal. No pleural effusion or pneumothorax. Heart/Mediastinum: The heart is enlarged Bones/Soft Tissues: There has been a median sternotomy IMPRESSION: Status post median sternotomy. Tubes and lines as described. Low lung volumes. Persistent patchy atelectasis base of the LEFT lung unchanged. Cardiomegaly Darshana King CNP, CHRISTIAN IMG XR CHEST F inal Result * Sodium, Random Urine (01/03/2025 8:45 AM EST) Sodium, Urine 122 mmol/L 01/03/2025 9:40 AM EST [facility] Urine (Urine, Voided) Non-Blood Collection / Unknown 01/03/2025 8:45 AM EST 01/03/2025 8:57 AM EST Narrative [facility] - 01/03/2025 9:40 AM EST The reference interval(s) are unavailable for this specimen type. Comparison of this result with other laboratory results, such as the concentration in the blood, serum, or plasma, is recommended. The test result should be integrated into the clinical context for interpretation. Darshana King CNP, DNP LAB URINE ORDERAB LES Final Result [address] [address] * Osmolality, Blood (01/03/2025 8:40 AM EST) Osmolality 294 280 - 296 mOsm/kg water 01/03/2025 11:08 AM EST [facility] Blood (Blood) Catheter/Line / Unknown 01/03/2025 8:40 AM EST 01/03/2025 8:51 AM EST Darshana King CNP, DNP LAB BLOOD BKR ORD ERABLES Final Result [address] [address] * XR Chest Portable (01/03/2025 2:50 AM EST) Anatomical Region Laterality Modality Chest Computed Radiogr aphy 01/03/2025 8:17 AM EST Impressions 01/03/2025 8:25 AM EST Status post median sternotomy. Tubes and lines as described. Clear well-expanded RIGHT lung with atelectasis of the LEFT lower lobe. Status post repair of an aortic aneurysm as described above. Narrative 01/03/2025 8:25 AM EST XR CHEST PORTABLE Referring clinician's provided indication for this examination in [facility]: Post-Op COMPARISON: FINDINGS: Devices/Tubes/Lines: There has been a median sternotomy. There is an endotracheal tube about 4 cm from the javon. There is a LEFT internal jugular Clinton-Sharon catheter terminating in the RIGHT interlobar artery. There is a left-sided chest tube in place in the mid thoracic region. Lungs: RIGHT lung is well expanded and clear. There is atelectasis present in the LEFT lower lobe. Pleura: Normal. No pleural effusion or pneumothorax. Heart/Mediastinum: There has been a aortic aneurysm with rupture and dissection. Status post repair. Bones/Soft Tissues: There has been a median sternotomy Procedure Note Annmarie Hill MD - 01/03/2025 XR CHEST PORTABLE Referring clinician's provided indication for this examination in [facility]:Post-Op COMPARISON: FINDINGS: Devices/Tubes/Lines: There has been a median sternotomy. There is anendotracheal tube about 4 cm from the javon. There is a LEFT internaljugular Clinton-Sharon catheter terminating in the RIGHT interlobar artery.There is a left-sided chest tube in place in the mid thoracic region. Lungs: RIGHT lung is well expanded and clear. There is atelectasis presentin the LEFT lower lobe. Pleura: Normal. No pleural effusion or pneumothorax. Heart/Mediastinum: There has been a aortic aneurysm with rupture anddissection. Status post repair. Bones/Soft Tissues: There has been a median sternotomy IMPRESSION: Status post median sternotomy. Tubes and lines as described. Clear well-expanded RIGHT lung with atelectasis of the LEFT lower lobe. Status post repair of an aortic aneurysm as described above. Gulshan Boyle PRIVATE ADVISOR IM XR CHEST Final Result * Osmolality, Random Urine (01/02/2025 11:13 PM EST) Osmolality, Urine 281 150 - 1,150 mOsm/kg water 01/03/2025 1:13 AM EST [facility] Urine (Urine, Voided) Non-Blood Collection / Unknown 01/02/2025 11:13 PM EST 01/02/2025 11:35 PM EST Gulshan Boyle PRIVATE ADVISOR LAB URINE ORDERABLES Final R esult Performing Organization Address [facility] Co de Phone Number [address] [address] * (ABNORMAL) Sodium (01/02/2025 11:13 PM EST) Sodium 147(H) 136 - 145 mmol/L 01/03/2025 12:50 AM EST [facility] Comment:Corrected for lipemi a. Blood (Blood) Venipuncture / Unknown 01/02/2025 11:13 PM EST 01/02/2025 11:22 PM EST Gulshan Boyle PRIVATE ADVISOR LAB BLOOD BKR ORDERABLES Fin al Result Performing Organization Address [facility] Co de Phone Number [address] [address] * ANES SPINAL PUNCTURE,THERAPEUTIC DRAINAGE PERF (01/02/2025 9:41 PM EST) Narrative Yonas Garcia MD - 01/02/2025 9:41 PM EST Yonas Garcia MD 01/02/2025 9:43 PM Lumbar Drain Placement Procedure Note: Reason for block: spinal cord protection Performed by: anesthesiologist and fellow/resident/CLINICAL DATA ASSISTANT Anesthesiologist: Yonas Garcia MD Fellow/Resident/CLINICAL DATA ASSISTANT: Cherrie Hall MD [place] Protocol performed: consent obtained, patient identified with 2 identifiers, correct procedure verified, correct site and laterality confirmed, verified equipment, coagulation status reviewed and implant history reviewed. Procedure details: Patient position: left lateral decubitus Prep: chloraprep Approach: midline Location: L4-5 Image guidance: fluoroscopy Drain needle and catheter: Needle gauge: 14 G Outcomes: CSF free flow? yes CSF description: clear Notes: I was asked to place a lumbar drain by Dr. Whitley of the cardiac surgical service for spinal cord protection prior to scheduled extent I TAAA repair . I spoke with the patient and obtained informed consent for the drain placement including risk of drain failure, intrathecal/epidural bleeding, nerve injury and persistent CSF leak. Mr. Galo was brought to the OR and placed under general anesthesia by the anesthesia team and then rolled into the left lateral decubitus position. I did a standard sterile prep/drape with chlorhexidine and a hard stop time-out was performed confirming appropriate coagulation parameters and holding of anticoagulation. Fluoroscopy was draped and brought into the field. Initial AP images showed normal lumbar spine anatomy . We selected the L4-5 interspace given adequate interlaminar space for access. A 14 gauge Tuohy needle was placed and aligned coaxial with the fluoroscopy beam with 5 degrees of cranial angulation. Once we were happy with the AP trajectory, we rotated to a lateral exposure and advanced the needle under live fluoroscopy into the spinal canal with immediate return of clear CSF. The lumbar drain was placed and threaded to T12 with more than 10cm of drain threaded into the intrathecal space. The drain was secured with a soft collar, 2-0 silk stitch and tegaderm. The patient was returned to the supine position with clear CSF continuing to drain easily from the catheter. An excellent pulsatile waveform was noted on transduction consistent with intrathecal placement. us Yonas Garcia MD DE ANESTHESIA Final Result * XR ELBOW 2 VIEWS (LEFT) (01/02/2025 8:54 PM EST) Anatomical Region Laterality Modality Elbow Left Computed Radiogr aphy 01/03/2025 8:07 AM EST Impressions 01/03/2025 10:57 AM EST No fracture or dislocation. ATTESTATION: I, Dr. Darrius Richards as teaching physician, have reviewed the images for this case and if necessary edited the report originally created by Armond Leal. Narrative 01/03/2025 10:57 AM EST XR SHOULDER 1 VIEW (LEFT), XR ELBOW 2 VIEWS (LEFT) Referring clinician's provided indication for this examination in Epic: Other Indication (Please use free text); manipulation in OR COMPARISON: None FINDINGS: Single view intraoperative frontal view portable radiograph of the shoulder demonstrates: No fracture or dislocation. Mild glenohumeral and acromioclavicular joint degenerative changes. Endotracheal tube in place. Partially visualized left internal Clinton Sharon catheter terminating in the right main pulmonary artery, left chest tubes, and sternotomy wires. Frontal and lateral portable radiographs of the elbow demonstrate: No acute fracture or dislocation. No elbow joint effusion. Triceps enthesopathy at the olecranon. Mild degenerative changes at the ulnotrochlear joint. Procedure Note Darrius Richards MD - 01/03/2025 XR SHOULDER 1 VIEW (LEFT), XR ELBOW 2 VIEWS (LEFT) Referring clinician's provided indication for this examination in [facility]:Other Indication (Please use free text); manipulation in OR COMPARISON: None FINDINGS: Single view intraoperative frontal view portable radiograph of theshoulder demonstrates: No fracture or dislocation. Mild glenohumeral and acromioclavicular jointdegenerative changes. Endotracheal tube in place. Partially visualized left internal Clinton Ganzcatheter terminating in the right main pulmonary artery, left chest tubes,and sternotomy wires. Frontal and lateral portable radiographs of the elbow demonstrate: No acute fracture or dislocation. No elbow joint effusion. Tricepsenthesopathy at the olecranon. Mild degenerative changes at theulnotrochlear joint. IMPRESSION: No fracture or dislocation. ATTESTATION: I, Dr. Darrius Richards as teaching physician, have reviewedthe images for this case and if necessary edited the report originallycreated by Armond Leal. us Gulshan Boyle [facility] IM XR UPPER EXTREMITY Final Result * XR Chest Portable (01/02/2025 8:44 PM EST) Anatomical Region Laterality Modality Chest Computed Radiogr aphy 01/03/2025 9:20 AM EST Impressions 01/03/2025 9:30 AM EST Tubes and lines as described. Clear RIGHT lung. Areas of atelectasis medially in the LEFT lung probably secondary to surgery. Small LEFT pleural effusion. 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 There is an endotracheal tube about 4 cm above the javon. There is a LEFT internal catheter terminating in the main there is immediate drain in place. Lungs: RIGHT lung appears clear. There are areas of atelectasis medially in the LEFT lung probably secondary to the surgery. Pleura: There is a small LEFT pleural effusion. Heart/Mediastinum: The patient has had an past medical history of type A aortic dissection and aortic root aneurysm both of which have increased in size. The heart is slightly enlarged.. There has been a repair of the aortic root aneurysm and the descending thoracic aneurysm. The heart is slightly enlarged. Bones/Soft Tissues: There has been a median sternotomy Procedure Note Annmarie Hill MD - 01/03/2025 XR CHEST PORTABLE Referring clinician's provided indication for this examination in Epic:Post-Op COMPARISON: XR CHEST PA AND LATERAL 2 VIEWS 2024- FINDINGS: Devices/Tubes/Lines: There has been a median sternotomy. There is anendotracheal tube about 4 cm above the javon. There is a LEFT internalcatheter terminating in the main there is immediate drain in place. Lungs: RIGHT lung appears clear. There are areas of atelectasis mediallyin the LEFT lung probably secondary to the surgery. Pleura: There is a small LEFT pleural effusion. Heart/Mediastinum: The patient has had an past medical history of type Aaortic dissection and aortic root aneurysm both of which have increased insize. The heart is slightly enlarged.. There has been a repair of theaortic root aneurysm and the descending thoracic aneurysm. The heart is slightly enlarged. Bones/Soft Tissues: There has been a median sternotomy IMPRESSION: Tubes and lines as described. Clear RIGHT lung. Areas of atelectasis medially in the LEFT lung probably secondary tosurgery. Small LEFT pleural effusion. Cardiomegaly Status post repair of a aortic root aneurysm and descending thoracicaneurysm us Gulshan Boyle PRIVATE ADVISOR IMG XR CHEST Final Result * XR SHOULDER 1 VIEW (LEFT) (01/02/2025 8:44 PM EST) Anatomical Region Laterality Modality Shoulder Left Computed Radiogr aphy 01/03/2025 8:07 AM EST Impressions 01/03/2025 10:57 AM EST No fracture or dislocation. ATTESTATION: I, Dr. Darrius Richards as teaching physician, have reviewed the images for this case and if necessary edited the report originally created by Armond Leal. Narrative 01/03/2025 10:57 AM EST XR SHOULDER 1 VIEW (LEFT), XR ELBOW 2 VIEWS (LEFT) Referring clinician's provided indication for this examination in [facility]: Other Indication (Please use free text); manipulation in OR COMPARISON: None FINDINGS: Single view intraoperative frontal view portable radiograph of the shoulder demonstrates: No fracture or dislocation. Mild glenohumeral and acromioclavicular joint degenerative changes. Endotracheal tube in place. Partially visualized left internal Clinton Sharon catheter terminating in the right main pulmonary artery, left chest tubes, and sternotomy wires. Frontal and lateral portable radiographs of the elbow demonstrate: No acute fracture or dislocation. No elbow joint effusion. Triceps enthesopathy at the olecranon. Mild degenerative changes at the ulnotrochlear joint. Procedure Note Darrius Richards MD - 01/03/2025 XR SHOULDER 1 VIEW (LEFT), XR ELBOW 2 VIEWS (LEFT) Referring clinician's provided indication for this examination in [facility]:Other Indication (Please use free text); manipulation in OR COMPARISON: None FINDINGS: Single view intraoperative frontal view portable radiograph of theshoulder demonstrates: No fracture or dislocation. Mild glenohumeral and acromioclavicular jointdegenerative changes. Endotracheal tube in place. Partially visualized left internal Clinton Ganzcatheter terminating in the right main pulmonary artery, left chest tubes,and sternotomy wires. Frontal and lateral portable radiographs of the elbow demonstrate: No acute fracture or dislocation. No elbow joint effusion. Tricepsenthesopathy at the olecranon. Mild degenerative changes at theulnotrochlear joint. IMPRESSION: No fracture or dislocation. ATTESTATION: I, Dr. Darrius Richards as teaching physician, have reviewedthe images for this case and if necessary edited the report originallycreated by Armond eLal. Gulshan Boyle PRIVATE ADVISOR IMG XR UPPER EXTREMITY Final Result * MRSA Screen, Culture (01/02/2025 8:28 PM EST) Methicillin Resistant Staphylococcus Aureus (MRSA) Screen Culture/Test No MRSA isolated 01/04/2025 8:00 AM EST [facility] Swab (Anterior Nares) Non-Blood Collection / Unknown 01/02/2025 8:28 PM EST 01/02/2025 9:30 PM EST Gulsahn Boyle CNP LAB MICROBIOLOGY CULTURE ORD ERABLES Final Result Performing Organization Address City/[facility]/ZIP Co de Phone Number [address] [address] * Vancomycin Resistant Enterococci (VRE), Rectal Screen (01/02/2025 8:28 PM EST) Vancomycin Resistant Enterococci (Vre) Rectal Screen Culture/Test No VRE isolated 01/04/2025 8:03 AM EST [facility] Swab (Per Rectum) Non-Blood Collection / Unknown 01/02/2025 8:28 PM EST 01/02/2025 9:30 PM EST Gulshan Boyle CNP LAB MICROBIOLOGY CULTURE ORD ERABLES Final Result Performing Organization Address [facility] Co de Phone Number [address] [address] * Fibrinogen (01/02/2025 8:28 PM EST) Only the most recent of6 resultswithin the time period is included. Fibrinogen 264 200 - 400 mg/dL 01/02/2025 9:19 PM EST [facility] Blood (Blood) Venipuncture / Unknown 01/02/2025 8:28 PM EST 01/02/2025 8:53 PM EST Gulshan Boyle PRIVATE ADVISOR LAB BLOOD BKR ORDERABLES Fin al Result Performing Organization Address City/[facility]/ZIP Co de Phone Number [address] [address] * Lipase (01/02/2025 8:28 PM EST) Lipase 25 13 - 60 U/L 01/02/2025 9:17 PM EST [facility] Comment:NOTE: Specimen hemol yzed. Results may be falsely increased. Blood (Blood) Venipuncture / Unknown 01/02/2025 8:28 PM EST 01/02/2025 8:53 PM EST Gulshan Boyle PRIVATE ADVISOR LAB BLOOD BKR ORDERABLES Fin al Result [facility] [address] [place] [address] * RBCs (01/02/2025 6:59 PM EST) Only the most recent of5 resultswithin the time period is included. Yonas Garcia MD NURSING TREATMENT ORDE RABLES - ASSIGN Final Result * Cryoprecipitate (01/02/2025 6:31 PM EST) Only the most recent of3 resultswithin the time period is included. Yonas Garcia MD NURSING TREATMENT ORDE RABLES - ASSIGN Final Result * Plasma (01/02/2025 6:22 PM EST) Only the most recent of7 resultswithin the time period is included. Yonas Garcia MD NURSING TREATMENT ORDE RABLES - ASSIGN Final Result * Platelets (01/02/2025 6:04 PM EST) Only the most recent of3 resultswithin the time period is included. Yonas Garcia MD NURSING TREATMENT ORDE RABLES - ASSIGN Final Result * POCT Heparin Protamine Titration (01/02/2025 5:36 PM EST) Only the most recent of11 resultswithin the time period is included. Heparin Protamine Titration 0.0 u/mL 01/02/2025 5:40 PM EST [facility] 1 & 2 HPT Test Range 0.0-1.2 u/mL 01/02/2025 5:40 PM EST [facility] 1 & 2 HPT Cartridge Color Red 01/02/2025 5:40 PM EST [facility] 1 & 2 Blood (Blood) 01/02/2025 5:3 6 PM EST 01/02/2025 5:40 PM EST [facility] LAB POCT DOCKED DEVICE UN SOLICTED RESULTS Final Result Performing Organization Address [facility] de Phone Number [facility] 1 & [address] [place] [id number] * (ABNORMAL) POCT Activated Clotting Time (ACT) (01/02/2025 5:36 PM EST) Only the most recent of10 resultswithin the time period is included. Activated Clotting Time (ACT) 141(H) 90 - 130 sec 01/02/2025 5:40 PM EST [facility] 1 & 2 Blood (Blood) 01/02/2025 5:3 6 PM EST 01/02/2025 5:40 PM EST [facility] LAB POCT DOCKED DEVICE UN SOLICTED RESULTS Final Result Performing Organization Address [facility] de Phone Number [facility] 1 & [address] [place] [phone] * (ABNORMAL) POCT Thromboelastography (TEG 6S) (01/02/2025 5:35 PM EST) Only the most recent of2 resultswithin the time period is included. FFMA 14(L) 15 - 32 mm 01/02/2025 6:44 PM EST [facility] 1 & 2 MA 51.2(L) 52.0 - 70.0 mm 01/02/2025 6:44 PM EST [facility] 1 & 2 LY30 0.0 0.0 - 2.6 % 01/02/2025 6:44 PM EST [facility] 1 & 2 R 10.8(H) 4.6 - 9.1 min 01/02/2025 6:44 PM EST [facility] 1 & 2 Blood (Blood) 01/02/2025 5:3 5 PM EST 01/02/2025 6:44 PM EST us Doron MCCARTHYBS LAB POCT DOCKED DEVICE UN SOLICTED RESULTS Final Result Performing Organization Address City/[facility] Co de Phone Number [facility] 1 & 2 [address] [place] [address] * (ABNORMAL) PUMP BLOOD GAS (01/02/2025 4:20 PM EST) Only the most recent of7 resultswithin the time period is included. Temperature 37.0 deg C 01/02/2025 4:31 PM EST [facility] FiO2 01/02/2025 4:31 PM EST [facility] Comment:CPB pH, Arterial 7.41 7.35 - 7.45 01/02/2025 4:31 PM EST [facility] pCO2, Arterial 37 35 - 42 mm[Hg] 01/02/2025 4:31 PM EST [facility] pO2, Arterial 257(H) 80 - 100 mm[Hg] 01/02/2025 4:31 PM EST [facility] Bicarbonate (HCO3) 23 22 - 27 mmol/L 01/02/2025 4:31 PM EST [facility] Base Excess -1.2 -3.0 - 3.0 mmol/L 01/02/2025 4:31 PM EST [facility] Blood (Blood, Arterial) 01/02/2025 4:20 PM EST 01/02/2025 4:25 PM EST Yonas Garcia MD LAB BLOOD BKR ORDERABL ES Final Result Performing Organization Address [facility] Co de Phone Number [address] [address] * Tissue Exam (01/02/2025 2:14 PM EST) Final Pathologic Diagnosis A. AORTA, DESCENDING; DESCENDING AORTA: Chronic dissection; thrombus B. AORTA; AORTIC WALL: Chronic dissection; thrombus 01/09/2025 8:16 AM EST [facility] at 0816 EST Clinical History Pre-op diagnosis: Descending Aortic Aneurysm 01/09/2025 8:16 AM EST [facility] Gross Description A. AORTA, DESCENDING; DESCENDING AORTA: Name: Cuco Nunn; ; and : 1970 Collection/Order Information: Cardiovascular Tissue ; Aorta, Descending ; ''Descending Aorta'' Specimen Label: matches the above (Confirmed by: SKNaima) Received fresh is a 7.8 x 6.2 x 2.5 cm aggregate predominately composed of red-ledezma to ledezma-white blood clot and fibrin intermixed with a small amount of large caliber vessel fragments. The intima is ledezma-white with moderate atherosclerotic change. The wall averages 0.1 cm thick. Supplier Quality Engineer sections are submitted as follows: A1-A2: Vessel A3: Blood clot B. AORTA; AORTIC WALL: Name: Cuco Nunn; ; and : 1970 Collection/Order Information: Cardiovascular Tissue ; Aorta ; ''Aortic Wall'' Specimen Label: matches the above (Confirmed by: SKNaima) Received fresh is a 3.7 x 2.4 x 0.6 cm aggregate of large caliber vessel fragments surfaced by pink-valenzuela, shaggy adventitia covered by small amount of ledezma-white exudate. The intima is ledezma-white with prominent atherosclerotic change. The wall ranges from 0.1-0.7 cm thick. The specimen is submitted entirely in B1-B2. 01/09/2025 8:16 AM EST [facility] Grossed By Jesus Barnes 01/09/2025 8:16 AM EST [facility] Result Priority Level Routine 01/09/2025 8:16 AM EST [facility] Disclaimer By their signature above, the pathologist listed as making the Final Diagnosis certifies that they have personally reviewed the case and confirmed the diagnosis. All slides and stains were of sufficient quality to establish the diagnosis, unless otherwise stated. Due to loss of elastic tension and/or tissue shrinkage in formalin, the clinical sizes of tissue specimens may be larger than those provided in this report. 01/09/2025 8:16 AM EST [facility] Procedure REPAIR ANEURYSM DESCENDING AORTA 01/09/2025 8:16 AM EST [facility] Cardiovascular Tissue (Aorta, Descending) 01/02/2025 2:14 PM EST 01/03/2025 7:25 AM EST Comment:Pre-op diagnosis: Descending Aortic Aneurysm Cardiovascular Tissue (Aorta) 01/02/2025 5:57 PM EST 01/03/2025 7:25 AM EST Comment:Pre-op diagnosis: Descending Aortic Aneurysm Doron LOZANO LAB PATHOLOGY ORDERABLES Final Result Performing Organization Address [facility] Co de Phone Number [address] [address] * (ABNORMAL) Venous Blood Gas (VBG) (01/02/2025 12:53 PM EST) pH, Venous 7.35 7.30 - 7.40 01/02/2025 1:00 PM EST [facility] pCO2, Venous 39 38 - 50 mm[Hg] 01/02/2025 1:00 PM EST [facility] pO2, Venous 60(H) 35 - 50 mm[Hg] 01/02/2025 1:00 PM EST [facility] Base Excess -4.0(L) -3.0 - 3.0 mmol/L 01/02/2025 1:00 PM EST [facility] Bicarbonate (HCO3) 21(L) 22 - 27 mmol/L 01/02/2025 1:00 PM EST [facility] Oxygen Saturation, Venous 88.6(H) 60.0 - 85.0 % 01/02/2025 1:00 PM EST [facility] Blood (Blood, Venous) 01/02/2025 12:53 PM EST 01/02/2025 12:56 PM EST Yonas Garcia MD LAB BLOOD BKR ORDERABL ES Final Result Performing Organization Address [facility] Co de Phone Number [address] [address] * DE INSERT CATH ART PERCUT SHORTTERM PERF (01/02/2025 10:24 AM EST) Only the most recent of2 resultswithin the time period is included. Narrative Cherrie Hall MD - 01/02/2025 10:24 AM EST Cherrie Hall MD 01/02/2025 10:24 AM Arterial Line Placement Procedure Note: Location: OR Procedure performed by: fellow/resident/CLINICAL DATA ASSISTANT Anesthesiologist: Yonas Garcia MD Fellow/Resident/CLINICAL DATA ASSISTANT: Cherrie Hall MD Indication(s): hemodynamic monitoring, arterial blood gas and frequent labs [place] Protocol performed: consent obtained, patient identified with 2 identifiers, correct procedure verified, correct site and laterality confirmed, verified equipment, coagulation status reviewed and implant history reviewed. Procedure details: Skin prep: chlorhexidine gluconate Skin prep agent completely dried prior to procedure. Insertion site scrubbed for 30 seconds. Sterile barriers: hands washed, cap, mask, prep and drape and sterile gloves used Laterality: right Location: brachial artery Catheter type: angio Catheter size: 20 G Technique: Technique: Seldinger technique Number of attempts: 1 Ultrasound: Ultrasound image: not saved Ultrasound visualization: good Post Procedure: Post procedure: dressing applied Complications: none Patient tolerance: patient tolerated the procedure well with no immediate complications Transducer type: regular Name band removed? No us Yonas Garcia MD DE ANESTHESIA Final Result * DE INSERT/PLACE FLOW DIRECT CATH PERF, ANES DOUBLE LUMEN SHEATH - PA LINE, ANES VIP PLUS CATH - CENTRAL PA LINE (01/02/2025 10:18 AM EST) Narrative Yonas Garcia MD - 01/02/2025 10:18 AM EST Yonas Garcia MD 01/02/2025 9:45 PM Pulmonary Artery Line Placement Procedure Note: Start time: 01/02/2025 9:07 AM Anesthesiologist: Yonas Garcia MD Fellow/Resident/CLINICAL DATA ASSISTANT: Cherrie Hall MD Performed: fellow/resident/CLINICAL DATA ASSISTANT [place] Protocol performed: consent obtained, patient identified with 2 identifiers, correct procedure verified, correct site and laterality confirmed, verified equipment, coagulation status reviewed and implant history reviewed. . Indication: Indication: hemodynamic monitoring, vasoactive IV medications and vascular access. Central line Checklist: emergency line placement? no timeout performed? yes hand hygiene performed prior to central venous catheter insertion? yes procedure site disinfected per protocol? yes site allowed to dry for 30 seconds? yes personal protection worn? yes catering assistant followed standard precautions? yes sterile technique used to drape from head to toe? yes sterile field maintained during procedure? yes guidewires and dilators removed? yes line flushed and capped before removal of drapes? yes dressing applied to site? yes break in sterile procedure? no. Technique: Technique: live ultrasound and line changed over guidewire Number of Attempts: 1 Venous verification: non-pulsatile flow and wire visualized in vein by ultrasound Venous verification comment(s): Fluoro guided Procedure details: Location: left internal jugular Skin prep: chloraprep Central venous catheter type: MAC introducer PA catheter type: VIP+ Ultrasound: Ultrasound image: not saved Ultrasound visualization: good Post Procedure: Post Procedure:blood removed, chlorhexidine patch applied, dressing applied and line sutured Assessment/Verification: blood return through port and placement verified by x-ray Complications?: No Notes: LIJ line placement for planned L thoracotomy. 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 Initial access with 21ga micropuncture needle x single attempt. 0.021 MP wire threaded under fluoro to SVC. 4Fr sheath placed. 0.035 Wholey wire placed through sheath and advanced into RA. MAC introducer placed. PAC placed through sheath and unable to advance due to innominate stenosis with balloon up or down. 0.018 SV-5 exchange length wire advanced through PAC to RA. PAC advanced over wire to RA. Balloon inflated and PAC advanced into RMPA under live fluoro guidance. No complications. . Yonas Garcia MD DE ANESTHESIA Edited Result - Final * POCT Heparin Dose Response (01/02/2025 9:29 AM EST) Proj Heparin Conc 5.1 u/mL 01/02/2025 9:34 AM EST [facility] & 2 Activated Clotting Time (ACT) 105 90 - 130 sec 01/02/2025 9:34 AM EST [facility] 1 & 2 Heparin Dose Response 68 50 - 120 sec 01/02/2025 9:34 AM EST [facility] 1 & 2 Blood (Blood) 01/02/2025 9:2 9 AM EST 01/02/2025 9:34 AM EST [facility] POCT DOCKED DEVICE UN SOLICTED RESULTS Final Result [facility] 1 & [address] [place] [id number] * DE ECHO HEART TRANSESOPH PROBE PLACEMT PERF (01/02/2025 9:20 AM EST) Narrative Cherrie Hall MD - 01/02/2025 9:20 AM EST Cherrie Hall MD 01/02/2025 9:21 AM Transesophageal Echocardiogram Procedure Note: Start time: 01/02/2025 9:21 AM Performed by: fellow/resident/CLINICAL DATA ASSISTANT Anesthesiologist: Yonas Garcia MD Fellow/Resident/CLINICAL DATA ASSISTANT: Giuseppe Valencia MD [place] Protocol performed: consent obtained, patient identified with 2 identifiers, correct procedure verified, correct site and laterality confirmed, verified equipment, coagulation status reviewed and implant history reviewed. Placement notes: probe advanced in esophagus atraumatic Yonas Garcia MD DE ANESTHESIA Final Result * FL Fluoroscopy Guidance - No Charge (01/02/2025 9:17 AM EST) 01/02/2025 3:55 PM EST [facility]ative [facility] - 01/02/2025 3:55 PM EST Dose (mGy): 52.6 Dose Area Product (DAP): 1521 Dose Area Product (DAP) Units: uGy.m2 Fluoro time (min): 6 Procedure Note Clothespin Drier Operator, Dictation - 01/02/2025 Dose (mGy): 52.6 Dose Area Product (DAP): 1521 Dose Area Product (DAP) Units: uGy.m2 Fluoro time (min): 6 us Yonas Garcia MD IMG [place] EXAMS Final Result [facility] [address] [place] [address] * ANES ETT DOUBLE LUMEN - AIRWAY LDA (01/02/2025 7:48 AM EST) Narrative Cherrie Hall MD - 01/02/2025 7:48 AM EST Cherrie Hall MD 01/02/2025 10:13 AM Airway Placement Procedure Note: Patient was not difficult to intubate. Procedure performed by: fellow/resident/CLINICAL DATA ASSISTANT Anesthesiologist: Yonas Garcia MD Fellow/Resident/CLINICAL DATA ASSISTANT: Cherrie Hall MD Airway procedure initiated at:01/02/2025 7:48 AM and ended at. Personal Protective Equipment: Mask: surgical mask Eye Protection: eye shield Gloves: gloves Mask Ventilation: Quality: easy Airway Placement: Technique: direct laryngoscopy Rapid sequence induction: no Details: Blade type: Mac Blade size: 3 Direct view: grade 1 Number of attempts: 1 ETT type: cuffed and double lumen Double lumen position: left. Double lumen tube size: 35. Tube position confirmed by: EtCO2 and bronchoscopy Outcomes: Evidence of dental injury? no Complications observed? no Notes: Bilateral bite blocks placed. Yonas Garcia MD DE ANESTHESIA Final Result * ANESTHESIA POINT OF CARE IMAGE CAPTURE (01/02/2025 6:36 AM EST) Anatomical Region Laterality Modality Ultrasound Narrative 01/02/2025 6:36 AM EST Cherrie Hall MD 01/02/2025 6:36 AM Anesthesia Point of Care Image Capture Performed by: Cherrie Hall MD Authorized by: Yonas Garcia MD Accession Number: [id number] Yonas Garcia MD IMG POINT OF CARE EXAM S Final Result * ANESTHESIA POINT OF CARE IMAGE CAPTURE (01/02/2025 5:36 AM EST) Anatomical Region Laterality Modality Ultrasound Narrative 01/02/2025 5:36 AM EST Cherrie Hall MD 01/02/2025 5:36 AM Anesthesia Point of Care Image Capture Performed by: Cherrie Hall MD Authorized by: Yonas Garcia MD Accession Number: [id number] Yonas Garcia MD IMG POINT OF CARE EXAM S Final Result * XR CHEST PA AND LATERAL 2 [...] clinician's provided indication for this examination in [facility]: Dyspnea on exertion; preoperative evaluation COMPARISON: [...] clinician's provided indication for this examination in [facility]:Dyspnea on exertion; preoperative evaluation COMPARISON: CT [...] report originallycreated by Mahamed Shelby. Karo Bishop PRIVATE ADVISOR IMG XR CHEST Final Res ult * Type and Screen (Conversion) (12/18/2024 8:47 AM EST) Hold Tube Completed? Yes 12/18/2024 8:56 AM EST [facility] Blood (Blood) 12/18/2024 8:4 7 AM EST 12/18/2024 8:47 AM EST Johnny Smith MD, MPH LAB BLOOD BANK TEST ORDERAB LES Final Result [facility] DE[facility] OF PATHOLOGY [address] [place] [id number] * Prepare Platelets, 1 Units (12/18/2024 8:47 AM EST) Only the most recent of2 resultswithin the time period is included. Donation Number [id number] 2024 6:04 PM EST [facility] Product Code [id number] 01/02/2025 6:04 PM EST [facility] Unit ABO/Rh B NEG 01/02/2025 6:04 PM EST [facility] Unit Status Transfused 01/02/2025 6:04 PM EST [facility] Unit Expiration [id number] 025 6:04 PM EST [facility] Barcoded Product Code [id number] 01/02/2025 6:04 PM EST [facility] Barcoded ABO/Rh 1700 6:04 PM EST [facility] Crossmatch Interpretation Not required 01/02/2025 6:04 PM EST [facility]OLOG[facility] 12/18/2024 8:47 AM EST 12/18/2024 8:47 AM EST us Yonas Garcia MD BLOOD BANK PRODUCT ORD ERABLES Final Result [facility] PATHOLOGY [address] [place] [id number] * Prepare Plasma, 10 Units (12/18/2024 8:47 AM EST) Donation Number [id number] 2024 5:18 PM EST [facility] Product Code E2684 01/02/2025 5:18 PM EST [facility] Unit ABO/Rh B POS 01/02/2025 5:18 PM EST [facility] Unit Status Transfused 01/02/2025 5:18 PM EST [facility] Unit Expiration [id number] 025 5:18 PM EST [facility] Barcoded Product Code [id number] 01/02/2025 5:18 PM EST [facility]OLOG[facility] Barcoded ABO/Rh 7300 5:18 PM EST [facility] Crossmatch Interpretation Not required 01/02/2025 5:18 PM EST [facility] Donation Number [id number] 2024 5:50 PM EST [facility] Product Code E2684 01/02/2025 5:50 PM EST [facility] Unit ABO/Rh B POS 01/02/2025 5:50 PM EST [facility] Unit Status Transfused 01/02/2025 5:50 PM EST [facility] Unit Expiration [id number] 025 5:50 PM EST [facility] Barcoded Product Code [id number] 01/02/2025 5:50 PM EST [facility] Barcoded ABO/Rh 7300 5:50 PM EST [facility] Crossmatch Interpretation Not required 01/02/2025 5:50 PM EST [facility] Donation Number [id number] 2024 3:24 PM EST [facility] Product Code E2684 01/02/2025 3:24 PM EST [facility] Unit ABO/Rh B POS 01/02/2025 3:24 PM EST [facility] Unit Status Transfused 01/02/2025 3:24 PM EST [facility] Unit Expiration [id number] 025 3:24 PM EST [facility] Barcoded Product Code [id number] 01/02/2025 3:24 PM EST [facility] Barcoded ABO/Rh 7300 3:24 PM EST [facility] Crossmatch Interpretation Not required 01/02/2025 3:24 PM EST [facility] Donation Number [id number] 2024 5:41 PM EST [facility] Product Code E2684 01/02/2025 5:41 PM EST [facility] Unit ABO/Rh B POS 01/02/2025 5:41 PM EST [facility] Unit Status Transfused 01/02/2025 5:41 PM EST [facility] Unit Expiration [id number] 025 5:41 PM EST [facility] Barcoded Product Code [id number] 01/02/2025 5:41 PM EST [facility] Barcoded ABO/Rh 7300 5 5:41 PM EST [facility] Crossmatch Interpretation Not required 01/02/2025 5:41 PM EST [facility] Donation Number [id number] 2024 9:16 PM EST [facility] Product Code E2684 01/02/2025 9:16 PM EST [facility] Unit ABO/Rh B POS 01/02/2025 9:16 PM EST [facility] Unit Status Released 01/02/2025 9:16 PM EST [facility] Unit Expiration [id number] 025 9:16 PM EST [facility] Barcoded Product Code [id number] 01/02/2025 9:16 PM EST [facility] Barcoded ABO/Rh 7300 9:16 PM EST [facility] Crossmatch Interpretation Not required 01/02/2025 9:16 PM EST [facility] Donation Number [id number] 2024 3:45 PM EST [facility] Product Code E5548 01/02/2025 3:45 PM EST [facility] Unit ABO/Rh B POS 01/02/2025 3:45 PM EST [facility] Unit Status Transfused 01/02/2025 3:45 PM EST [facility] Unit Expiration [id number] 025 3:45 PM EST [facility] Barcoded Product Code [id number] 01/02/2025 3:45 PM EST [facility] Barcoded ABO/Rh 7300 5 3:45 PM EST [facility]OLOG[facility] Crossmatch Interpretation Not required 01/02/2025 3:45 PM EST [facility] Donation Number [id number] 2024 4:50 PM EST [facility] Product Code E2684 01/02/2025 4:50 PM EST [facility] Unit ABO/Rh B POS 01/02/2025 4:50 PM EST [facility] Unit Status Transfused 01/02/2025 4:50 PM EST [facility] Unit Expiration [id number] 025 4:50 PM EST [facility] Barcoded Product Code [id number] 01/02/2025 4:50 PM EST [facility] Barcoded ABO/Rh 7300 5 4:50 PM EST [facility] Crossmatch Interpretation Not required 01/02/2025 4:50 PM EST [facility] Donation Number [id number] 2024 9:16 PM EST [facility] Product Code E2684 01/02/2025 9:16 PM EST [facility] Unit ABO/Rh B POS 01/02/2025 9:16 PM EST [facility] Unit Status Released 01/02/2025 9:16 PM EST [facility] Unit Expiration [id number] 025 9:16 PM EST [facility] Barcoded Product Code [id number] 01/02/2025 9:16 PM EST [facility] Barcoded ABO/Rh 7300 9:16 PM EST [facility] Crossmatch Interpretation Not required 01/02/2025 9:16 PM EST [facility] Donation Number [id number] 2024 6:22 PM EST [facility] Product Code E2684 01/02/2025 6:22 PM EST [facility] Unit ABO/Rh B POS 01/02/2025 6:22 PM EST [facility] Unit Status Transfused 01/02/2025 6:22 PM EST [facility] Unit Expiration [id number] 025 6:22 PM EST [facility] Barcoded Product Code [id number] 01/02/2025 6:22 PM EST [facility] Barcoded ABO/Rh 7300 5 6:22 PM EST [facility] Crossmatch Interpretation Not required 01/02/2025 6:22 PM EST [facility] Donation Number [id number] 2024 9:16 PM EST [facility] Product Code E2684 01/02/2025 9:16 PM EST [facility] Unit ABO/Rh B POS 01/02/2025 9:16 PM EST [facility] Unit Status Released 01/02/2025 9:16 PM EST [facility] Unit Expiration [id number] 025 9:16 PM EST [facility] Barcoded Product Code [id number] 01/02/2025 9:16 PM EST [facility] Barcoded ABO/Rh 7300 9:16 PM EST [facility] Crossmatch Interpretation Not required 01/02/2025 9:16 PM EST [facility] 12/18/2024 8:47 AM EST 12/18/2024 8:47 AM EST Cherrie Hall MD BLOOD BANK PRODUCT ORD ERABLES Final Result [facility]OLOGY [address] [place] [address] * Prepare Cryoprecipitate, 1 Pools (12/18/2024 8:47 AM EST) Only the most recent of2 resultswithin the time period is included. Donation Number [id number] 2024 6:31 PM EST [facility] Product Code E3591 01/02/2025 6:31 PM EST [facility] Unit ABO/Rh B POS 01/02/2025 6:31 PM EST [facility] Unit Status Transfused 01/02/2025 6:31 PM EST [facility] Unit Expiration [id number] 025 6:31 PM EST [facility] Barcoded Product Code [id number] 01/02/2025 6:31 PM EST [facility] Barcoded ABO/Rh 7300 6:31 PM EST [facility] Crossmatch Interpretation Not required 01/02/2025 6:31 PM EST [facility] 12/18/2024 8:47 AM EST 12/18/2024 8:47 AM EST us Yonas Garcia MD BLOOD BANK PRODUCT ORD ERABLES Final Result [facility]OLOG[facility] [address] [place] [address] * Prepare RBC, 10 Units (12/18/2024 8:47 AM EST) Donation Number [id number] 2024 6:59 PM EST [facility] Product Code E0685 01/02/2025 6:59 PM EST [facility] Unit ABO/Rh B POS 01/02/2025 6:59 PM EST [facility] Unit Status Transfused 01/02/2025 6:59 PM EST [facility] Unit Expiration [id number] 025 6:59 PM EST [facility] Barcoded Product Code [id number] 01/02/2025 6:59 PM EST [facility] Barcoded ABO/Rh 7300 6:59 PM EST [facility] Crossmatch Interpretation Compatible 01/02/2025 6:59 PM EST [facility] Donation Number [id number] 2024 5:46 PM EST [facility] Product Code E0336 01/02/2025 5:46 PM EST [facility] Unit ABO/Rh B POS 01/02/2025 5:46 PM EST [facility] Unit Status Transfused 01/02/2025 5:46 PM EST [facility] Unit Expiration [id number] 025 5:46 PM EST [facility] Barcoded Product Code [id number] 01/02/2025 5:46 PM EST [facility] Barcoded ABO/Rh 7300 5:46 PM EST [facility] Crossmatch Interpretation Compatible 01/02/2025 5:46 PM EST [facility] Donation Number [id number] 2024 9:13 PM EST [facility] Product Code E0336 01/02/2025 9:13 PM EST [facility] Unit ABO/Rh B POS 01/02/2025 9:13 PM EST [facility] Unit Status Released 01/02/2025 9:13 PM EST [facility] Unit Expiration [id number] 025 9:13 PM EST [facility] Barcoded Product Code [id number] 01/02/2025 9:13 PM EST [facility] Barcoded ABO/Rh 7300 9:13 PM EST [facility] Crossmatch Interpretation Compatible 01/02/2025 9:13 PM EST [facility] Donation Number [id number] 2024 3:57 PM EST [facility] Product Code E0336 01/02/2025 3:57 PM EST [facility] Unit ABO/Rh B POS 01/02/2025 3:57 PM EST [facility] Unit Status Transfused 01/02/2025 3:57 PM EST [facility] Unit Expiration [id number] 025 3:57 PM EST [facility] Barcoded Product Code [id number] 01/02/2025 3:57 PM EST [facility] Barcoded ABO/Rh 7300 3:57 PM EST [facility] Crossmatch Interpretation Compatible 01/02/2025 3:57 PM EST [facility] Donation Number [id number] 2024 9:13 PM EST [facility] Product Code E0336 01/02/2025 9:13 PM EST [facility] Unit ABO/Rh B POS 01/02/2025 9:13 PM EST [facility] Unit Status Released 01/02/2025 9:13 PM EST [facility] Unit Expiration [id number] 025 9:13 PM EST [facility] Barcoded Product Code [id number] 01/02/2025 9:13 PM EST [facility] Barcoded ABO/Rh 7300 5 9:13 PM EST [facility] Crossmatch Interpretation Compatible 01/02/2025 9:13 PM EST [facility] Donation Number [id number] 2024 3:46 PM EST [facility] Product Code E0336 01/02/2025 3:46 PM EST [facility] Unit ABO/Rh B POS 01/02/2025 3:46 PM EST [facility] Unit Status Transfused 01/02/2025 3:46 PM EST [facility] Unit Expiration [id number] 025 3:46 PM EST [facility] Barcoded Product Code [id number] 01/02/2025 3:46 PM EST [facility] Barcoded ABO/Rh 7300 3:46 PM EST [facility] [facility] Crossmatch Interpretation Compatible 01/02/2025 3:46 PM EST [facility] Donation Number [id number] 2024 9:13 PM EST [facility] Product Code E0336 01/02/2025 9:13 PM EST [facility] Unit ABO/Rh B POS 01/02/2025 9:13 PM EST [facility] Unit Status Released 01/02/2025 9:13 PM EST [facility] Unit Expiration [id number] 025 9:13 PM EST [facility] Barcoded Product Code [id number] 01/02/2025 9:13 PM EST [facility] Barcoded ABO/Rh 7300 9:13 PM EST [facility] Crossmatch Interpretation Compatible 01/02/2025 9:13 PM EST [facility] Donation Number [id number] 2024 9:13 PM EST [facility] Product Code E0336 01/02/2025 9:13 PM EST [facility] Unit ABO/Rh B POS 01/02/2025 9:13 PM EST [facility] Unit Status Released 01/02/2025 9:13 PM EST [facility] Unit Expiration [id number] 025 9:13 PM EST [facility] Barcoded Product Code [id number] 01/02/2025 9:13 PM EST [facility] Barcoded ABO/Rh 7300 5 9:13 PM EST [facility] Crossmatch Interpretation Compatible 01/02/2025 9:13 PM EST [facility] Donation Number [id number] 2024 1:34 PM EST [facility] Product Code E0336 01/02/2025 1:34 PM EST [facility] Unit ABO/Rh B POS 01/02/2025 1:34 PM EST [facility] Unit Status Transfused 01/02/2025 1:34 PM EST [facility] Unit Expiration [id number] 025 1:34 PM EST [facility] Barcoded Product Code [id number] 01/02/2025 1:34 PM EST [facility] Barcoded ABO/Rh 7300 5 1:34 PM EST [facility] Crossmatch Interpretation Compatible 01/02/2025 1:34 PM EST [facility] Donation Number [id number] 2024 9:13 PM EST [facility] Product Code E0336 01/02/2025 9:13 PM EST [facility] Unit ABO/Rh B POS 01/02/2025 9:13 PM EST [facility] Unit Status Released 01/02/2025 9:13 PM EST [facility] Unit Expiration [id number] 025 9:13 PM EST [facility] Barcoded Product Code [id number] 01/02/2025 9:13 PM EST [facility] Barcoded ABO/Rh 7300 5 9:13 PM EST [facility] Crossmatch Interpretation Compatible 01/02/2025 9:13 PM EST [facility] 12/18/2024 8:47 AM EST 12/18/2024 8:47 AM EST us Cherrie Hall MD BLOOD BANK PRODUCT ORD ERABLES Final Result [facility] PATHOLOGY [address] [place] [id number] * MRSA/MSSA PRE-OP PCR (12/16/2024 3:09 PM EDT) MRSA PCR SCREEN NEGATIVE FOR MRSA (Methicillin Resistant S.aureus) NEGATIVE FOR MRSA (Methicillin Resistant S.aureus) [facility] MSSA PCR SCREEN NEGATIVE FOR MSSA (Methicillin Susceptible S.aureus) NEGATIVE FOR MSSA (Methicillin Susceptible S.aureus) [facility] Comment:This test was conduc rocky as part of Pre-Operative Screening for Staphylococcus aureus. Please direct any questions regarding this result to the Ordering Provider. Nasal (Nasal) 12/16/2024 3:0 9 PM EDT 12/16/2024 4:05 PM EDT us Karo Bishop PRIVATE ADVISOR LAB GENERAL ORDERABLES Fi nal Result [facility] [address] [place] [address] * Comprehensive metabolic panel (12/16/2024 3:09 PM EDT) SODIUM 139 135 - 145 mmol/L [facility] POTASSIUM 3.8 3.4 - 5.0 mmol/L [facility] CHLORIDE 104 98 - 108 mmol/L [facility] CO2 25 23 - 32 mmol/L [facility] BUN 13 8 - 25 mg/dL [facility] CREATININE 0.95 0.60 - 1.30 mg/dL [facility] GLUCOSE 76 70 - 110 mg/dL [facility] ALBUMIN 4.4 3.3 - 5.0 g/dL [facility] TOTAL PROTEIN 7.6 6.0 - 8.3 g/dL [facility] CALCIUM 9.4 8.5 - 10.5 mg/dL [facility] ALKALINE PHOSPHATASE 85 45 - 115 U/L [facility] TOTAL BILIRUBIN 1.0 0.0 - 1.0 mg/dL [facility] AST 15 10 - 40 U/L [facility] ALT 13 10 - 55 U/L [facility] GLOBULIN 3.2 1.9 - 4.1 g/dL [facility] EGFR 96 >59 mL/min/1. 73m2 [facility] Comment:Estimated glomerular filtration rate calculated using the CKD-EPI refit equation. ANION GAP 10 3 - 17 mmol/L [facility] 12/16/2024 3:09 PM EDT 12/16/2024 4:54 PM EDT Karo Bishop PRIVATE ADVISOR LAB BLOOD BKR ORDERABLES Final Result Performing Organization Address City/[facility]/ZIP Co de Phone Number [address] [address] * ABO and Rh (12/16/2024 3:09 PM EDT) Expiration Date of Sample 01/15/2025 11:59 PM [facility] ABO B 12/16/2024 4:49 PM EDT [facility] Rh Positive 12/16/2024 4:49 PM EDT [facility] Resulting Agency [facility] 12/16/2024 3:09 PM EDT 12/16/2024 4:06 PM EDT Blood Bank LAB BLOOD BANK TEST ORDERABLES F inal Result Performing Organization Address [facility] Co de Phone Number [address] [address] * (ABNORMAL) CBC and differential (12/16/2024 3:09 PM EDT) WBC 6.03 4.00 - 11.00 K/uL [facility] RBC 4.40(L) 4.50 - 5.90 M/uL [facility] HGB 13.2(L) 13.5 - 17.5 g/dL [facility] HCT 39.9(L) 41.0 - 53.0 % [facility] PLT 261 150 - 450 K/uL [facility] MCV 90.7 80.0 - 100.0 fL [facility] MCH 30.0 27.0 - 31.0 pg [facility] MCHC 33.1 32.0 - 36.0 g/dL [facility] RDW 13.3 11.5 - 14.5 % [facility] MPV 10.3 8.4 - 12.0 fL [facility] NRBC 0.00 0.00 /100 WBCs [facility] ABSOLUTE NRBC 0.00 0.00 K/uL [facility] DIFF METHOD [employer] [facility] NEUTS 34.7(L) 48.0 - 76.0 % [facility] LYMPHS 52.6(H) 18.0 - 41.0 % [facility] MONOS 8.8 4.0 - 11.0 % [facility] EOS 3.0 0.0 - 5.0 % [facility] BASOS 0.7 0.0 - 1.5 % [facility] % IMMATURE GRANS 0.2 0.0 - 0.9 % [facility] ABSOLUTE NEUTS 2.10 1.92 - 7.60 K/uL [facility] ABSOLUTE LYMPHS 3.17 0.72 - 4.10 K/uL [facility] ABSOLUTE MONOS 0.53 0.16 - 1.10 K/uL [facility] ABSOLUTE EOS 0.18 0.00 - 0.50 K/uL [facility] ABSOLUTE BASOS 0.04 0.00 - 0.15 K/uL [facility] ABS IMMATURE GRANS 0.01 0.00 - 0.09 K/uL [facility] Blood 12/16/2024 3:09 PM EDT 12/16/2024 5:03 PM EDT Karo Bishop [facility] LAB BLOOD BKR ORDERABLES Final Result [address] [address] * Type and Screen (ABO,Rh,Antibody Screen) (12/16/2024 3:09 PM EDT) Expiration Date of Sample 01/15/2025 11:59 PM [facility] ABO B 12/16/2024 4:59 PM EDT [facility] Rh Positive 12/16/2024 4:59 PM EDT [facility] Resulting Agency [facility] Antibody Screen Negative 12/16/2024 5:10 PM EDT [facility] 12/16/2024 3:09 PM EDT 12/16/2024 4:06 PM EDT Karo Bishop CNP LAB BLOOD BANK TEST ORDER NOREEN Final Result [address] [address] * Hemoglobin A1c (12/16/2024 3:09 PM EDT) HEMOGLOBIN A1C 5.5 4.3 - 5.6 % [facility] Comment:HbA1c levels 5.7-6.4 % represent pre-diabetes, indicating impaired glucose control and an increased risk of developing diabetes compared with lower HbA1c levels. The diagnostic HbA1c level for diabetes is 6.5% or greater. CALC MEAN BLD GLUC 111 mg/dL [facility] Comment:There is no establis [facility] normal range for the Calculated Mean Blood Glucose (CMBG), however a HbA1c of 5.6% (upper limit of normal) represents a CMBG of 114 mg/dL. The diagnostic hemoglobin A1c level for diabetes is greater than or equal to 6.5% which represents a CMBG greater than or equal to 140 mg/dL. 12/16/2024 3:09 PM EDT 12/16/2024 5:03 PM EDT us Karo Bishop PRIVATE ADVISOR LAB BLOOD BKR ORDERABLES Final Result [address] [address] * CT CARDIAC WITH AND WITHOUT CONTRAST, CT ANGIO ABDOMEN/PELVIS WITH AND WITHOUT CONTRAST (54:18 PM EDT) Anatomical Region Laterality Modality Heart [...] Risk factor modification and preventive pharmacotherapy. ATTESTATION: I, Zo Do as teaching physician, have reviewed the images [...] (stent), G (graft), E (exceptions to atherosclerosis) [email or web address] FINDINGS: CORONARY: Coronary CTA: The quality of [...] resulting in mild stenosis. Total Coronary Plaque [place]: The overall coronary artery calcium score is [...] the lower lumbar spine. Procedure Note Zo Do, [facility] - 12/12/2024 CT CARDIAC (CORONARY) WITH AND [...] S (stent), G(graft), E (exceptions to atherosclerosis) [email or web address] FINDINGS: CORONARY: Coronary CTA: The quality of [...] plaque resulting in mildstenosis. Total Coronary Plaque [place]: The overall coronary artery calcium score is [...] pharmacotherapy. Risk factor modification andpreventive pharmacotherapy. ATTESTATION: Zo Nolen as teaching physician, have reviewed theimages for this case and if necessary edited the report originally createdby Chilango Simmons. us Karo Edgetrevon PRIVATE ADVISOR IMG CT CARDIAC Final Res ult * Outside Procedure (11/08/2024) us Scanning Interface Provider PROCEDURE/MINOR SURG ICAL PERFORMABLES Final Result * CT Chest Outside (No Interpretation) (10/31/2024 12:00 AM EDT) Narrative [facility] INTER[facility]AC[facility] - 11/08/2024 9:23 AM EDT This study is for PACS storage only and not for interpretation. 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 Expl anation Healthcare Proxy 12/09/2024 5:11 PM * Full Code (Latest Code Status on File) Date Activated Date Inactivated Comments 01/02/2025 8:18 PM Question Answer Comments Code Status Confirmed With: Patient Code Status Communicated To: Inpatient Attending Care Teams 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 It is not the complete legal health record.[facility]
--- OUTSIDE RECORDS SUMMARY | 2025-01-16 11:16 | XMS_ITS | Clinical Summary ---
Author Organization [facility] Address [address] [place] [address] Phone Care Team Providers Care Owner Name Role Phone Maximino Florez MD Primary Care Provider [phone] Allergies No known active allergies Medications No [...] patient's age to complete this topic Insurance [facility] MEDICAID ADVANTAGE Care Teams Owner Relationship Specialty Start Date End Date Maximino Florez MD [address] [place] [address] PCP - General Internal Medicine 07/24/24
--- OUTSIDE RECORDS SUMMARY | 2025-01-16 11:16 | XMS_ITS | Encounter Summary ---
Author Organization [facility] Address [address] [place] [address] Phone Care Team Providers Care Marketing Lead Name Role Phone Joel Armando MD Unavailable [phone] Doron Whitley Unavailable [phone] Dangelo Huber MD Primary Care Provider Encounter Details Date Type Department Care Team (Late st Contact Info) Description 01/13/2025 Documentation [facility] Division of Cardiac Surgery [address], [address]th [address], [address] [place] [address] Diamond Hernandez CNP [address] [place] [address] [email or web address] Social History Tobacco Use Types Packs/Day Years [...] have you moved in the past 12 thu ths? One time 01/04/2025 Paying for Meds [...] as of this encounter Progress Notes * Diamond Hernandez CNP - 01/13/2025 11:51 AM EST 01/13/[address] Joel Armando Cardiac Procedure 01/02/[address] Whitley/Dr Anette Mejía THORACOTOMY LEFT AXILLARY CUTDOWN - 8 mm Graft anastomosis to left axillary artery REPLACEMENT ANEURYSM DESCENDING AORTA UNDER DEEP HYPOTHERMIC CIRCULATORY ARREST - 32 mm LEFT FEMORAL CUTDOWN - Left femoral venous and arterial cannulation CRYOABLATION LEFT INTERCOSTAL NERVES ICS 3-8 Hospital Course Leukocytosis 21,000 - cultures negative with repeat labs pending L axillary edgardo removed ST cleared for regular diet and noted L vocal cord impairement. Will need Laryngeal Surgery Dr Pantoja follow up On 7 day course of antibiotics for likely aspiration PNA at DC DC to home with no services Interval Events Repeat WBC 18 from 21,000 Patient paged resident by phone on 01/11/2025 to discuss some dyspnea on stairs with plans to purchase a pulse oximeter. Blood cultures NGTD Respiratory cultures few polymorphonuclear leukocytes with no organisms Today I called [facility] for an update and spoke with him and his Brook. 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 - will need future OR Scripts for lidocaine patches sent and oxycodone # 14 N/R Continue acetaminophen ATC Follow up on oximeter 01/16/2025 We will follow up Diamond Hernandez NP Cardiac Surgery Page # [phone] (office) documented in this encounter Plan of Treatment Upcoming Encounters Date Type Department Care Team (Late st Contact Info) Description 01/08/2025 Procedure Pass [facility] - [place] [address] [place] [address] 01/08/2025 Procedure Pass [facility] - [place] [address]th [place] [address] 02/15/2025 12:45 PM EST Appointment [facility] - [place] [address] [place] [address] Doron Whitley MBBS [address] [address] [email or web address] 02/15/2025 1:30 PM EST Office Visit [facility] Division of Cardiac Surgery [address], [address] [place] [address] Doron Whitley MBBS [address] [address] [email or web address] documented as of this encounter Visit Diagnoses Not on filedocumented in this encounter Care Teams Marketing Lead Relationship Specialty Start Date End Date Dangelo Huber MD [address] [address] PCP - General Family Medicine 12/09/24 Joel Armando MD [address] [place] [address] Thoracic Surgery 10/13/24 Doron Whitley MBBS [address] [address] [email or web address] Cardiothoracic Surgery 10/13/24 documented as of this encounter Additional Source Comments The information contained in this document represents components of the legal health record. It is not the complete legal health record.[facility]
--- OUTSIDE RECORDS SUMMARY | 2025-01-16 11:16 | XMS_ITS | Encounter Summary ---
Author Organization [facility] Address [address] [place] [address] Phone Care Team Providers Care Safety Physician Name Role Phone Joel Armando MD Unavailable [phone] Doron Whitley Unavailable [phone] Dangelo Huber MD Primary Care Provider Encounter Details Date Type Department Care Team (Late st Contact Info) Description 01/05/2025 Procedure Pass [facility] [place], [place] [address] [facility], 2nd Floor, [address] [place] [address] Social History Tobacco Use Types Packs/Day Years [...] your housing situation today? I have laya sing 01/04/2025 How many times have you moved [...] st Contact Info) Description 01/08/2025 Procedure Pass [facility] for [facility] - [place] [address] [facility] [place] [address] 01/08/2025 Procedure Pass [facility] - [place] [address] [facility], [address] [place] [address] 02/15/2025 12:45 PM EST Appointment [facility] - [place] [address] [facility], [address] [place] [address] Doron Whitley MBBS [address] [facility] [address] [place] [address] [email or web address] 02/15/2025 1:30 PM EST Office Visit [facility] Division of Cardiac Surgery [address], 6th Floor, [address] [place] [address] Doron Whitley MBBS [address] [facility] [address] [place] [address] [email or web address] documented as of this encounter Visit Diagnoses Not on filedocumented in this encounter Care Teams Safety Physician Relationship Specialty Start Date End Date Dangelo Huber MD [address] [address] PCP - General Family Medicine 12/09/24 Joel Armando MD [address] [place] [address] Thoracic Surgery 10/13/24 Doron Whitley MBBS [address] [address] [email or web address] [email or web address] Surgery 10/13/24 documented as of this encounter Additional Source Comments The information contained in this document represents components of the legal health record. It is not the complete legal health record.[facility]
--- OUTSIDE RECORDS SUMMARY | 2025-01-16 11:16 | XMS_ITS | Encounter Summary ---
Author Organization [facility] Address [address] [facility] [address] [place] [address] Phone Care Team Providers Care Supervisor Stitching Department Name Role Phone Joel Armando MD Unavailable [phone] Doron Whitley Unavailable [phone] Dangelo Huber MD Primary Care Provider Encounter Details Date Type Department Care Team (Late st Contact Info) Description 01/02/2025 Procedure Pass [facility] [address] [place] [address] Social History Tobacco Use Types Packs/Day Years [...] you moved in the past 12 thu th? One time 01/04/2025 Paying for Meds Answer [...] PM EDT documented as of this encounter Functional Status * Calculated C-SSRS Risk Score (Lifetime/Recent) Answer Date of Assessment Author No Risk Indicated 01/04/2025 5:00 PM Idalia Clark RN * [place] Suicide Severity Rating Scale (Screener/Recent Self-Report) Question Answer Date of Assessment Author 1. Wish to be (Past 1 Month) No 01/04/2025 5:00 PM Idalia Garcia RN 2. Non-Specific Active Suicidal Thoughts (Past 1 Month) No 01/04/2025 5:00 PM Idalia Garcia, NOAH 6. Suicidal Behavior (Lifetime) No 01/04/2025 5:00 PM EST Idalia Martinez, NOAH documented as of this encounter Plan of Treatment Upcoming Encounters Date Type Department Care Team (Late st Contact Info) Description 01/08/2025 Procedure Pass [facility] - [place] [address] [facility] [place] [address] 01/08/2025 Procedure Pass [facility] [place] [address] [facility], [address] [place] [address] 02/15/2025 12:45 PM EST Appointment [facility] [place] [address] [facility], [address] [place] [address] Doron Whitley MBBS [address] [place] [address] [email or web address] 02/15/2025 1:30 PM EST Office Visit [facility] Division of Cardiac Surgery [address] [place] [address], [address] [place] [address], [address] [place] [address] Doron Whitley MBBS [address] [place] [address] [email or web address] documented as of this encounter Visit Diagnoses Not on filedocumented in this encounter Care Teams Supervisor Stitching Department Relationship Specialty Start Date End Date Dangelo Huber MD [address] [address] PCP - General Family Medicine 12/09/24 Joel Armando MD [address] [place] [address] Thoracic Surgery 10/13/24 Doron Whitley MBBS [address] [address] [email or web address] Cardiothoracic Surgery 10/13/24 documented as of this encounter Additional Source Comments The information contained in this document represents components of the legal health record. It is not the complete legal health record.[facility]
--- OUTSIDE RECORDS SUMMARY | 2025-01-16 11:16 | XMS_ITS | Encounter Summary ---
Author Organization [facility] Address [address] [facility] [address] [place] [address] Phone Care Team Providers Care Analysis Director Name Role Phone Maximino Florez MD Primary Care Provider Joel Armando MD Unavailable [phone] Doron Whitley Unavailable [phone] Dangelo Huber MD Primary Care Provider Encounter Details Date Type Department Care Team (Late st Contact Info) Description 11/17/2024 Procedure Pass [facility] [place] [address] 55 [facility], 2nd Floor, [address] [place] [address] Social History Tobacco Use Types Packs/Day Years [...] [facility] [place] [address] [facility], [address] [place] [address] 01/08/2025 Procedure Pass [facility] for Outpatient [place] - [place] [address] [facility], [address] [place] [address] 02/15/2025 12:45 PM EST Appointment [facility] for [facility] [place] [address] [facility], [address] [place] [address] Doron Whitley MBBS [address] [address] [email or web address] 02/15/2025 1:30 PM EST Office Visit [facility] Division of Cardiac Surgery 55 [facility], 6th [facility], [address] [place] [address] Doron Whitley MBBS [address] [address] [email or web address] documented as of this encounter Visit Diagnoses Not on filedocumented in this encounter Care Teams Analysis Director Relationship Specialty Start Date End Date Maximino Florez MD [address] [facility] 6 [place] [address] PCP - General Internal Medicine 10/13/24 12/08/24 Dangelo Huber MD [address] [facility] 100 [place] [address] PCP - General Family Medicine 12/09/24 Joel Armando MD 759 [place] [address] Thoracic Surgery 10/13/24 Doron Whitley MBBS [address] [place] [address] [email or web address] Cardiothoracic Surgery 10/13/24 documented as of this encounter Additional Source Comments The information contained in this document represents components of the legal health record. It is not the complete legal health record.[facility]
--- OUTSIDE RECORDS SUMMARY | 2025-01-16 11:16 | XMS_ITS | Encounter Summary ---
Author Organization [facility] Address [address] [facility] [address] [place] [address] Phone Care Team Providers Care School Leader Name Role Phone Joel Armando MD Unavailable [phone] Doron Whitley Unavailable [phone] Dangelo Huber MD Primary Care Provider Encounter Details Date Type Department Care Team (Late st Contact Info) Description 01/11/2025 Telephone VIRTUAL DEPARTMENT 55 [place] [address] Mary Simmons MD [address] [phone] [email or web address] Social History Tobacco Use Types Packs/Day Years [...] as of this encounter Progress Notes * Mary Simmons MD - 01/11/2025 7:58 PM EST Patient's called to report that the patient has been experiencing shortness of breath when ambulating stairs. He was discharged home yesterday 01/10; she states that the patient never did stairswhile he was still in the hospital prior to discharge. They have a flight of 14 stairs at home thathe must climb to get to the bathroom; in speaking with the patient, he states that he is able to go all the way up without stopping, but then needs to wait 2-5 minutes before coming back down due to shortness of breath. No lightheadedness/ dizziness, palpitations, lower extremity swelling, fevers/ chills or productive cough. Otherwise feels well. Had CBC drawn today w/ WBC down to 18 from 21 yesterday 01/10; resp culture from 01/10 w/ negative gram stain, no growth to date. Patient's states that she ordered a pulse oximeter to be delivered Thursday so she can monitor his O2 saturations. Hewas discharged off diuretics as he was 11lbs below his preop weight of 200lbs at the time of discharge. He will complete a 7 day course of antibiotics for presumed aspiration pneumonia with his last dose of augmentin tomorrow 01/12. Told patient and his that I will discuss with Dr. Whitley regarding next steps and that we would communicate the plan with them tomorrow 01/12. Reviewed warning signs that would necessitate presentation to the ED, with which they expressed their understanding. Mary Simmons MD Cardiothoracic Surgery Fellow [facility] documented in this encounter Plan of Treatment Upcoming Encounters Date Type Department Care Team (Late st Contact Info) Description 01/08/[address] [facility] for [facility] [place] - [place] [address] [facility], [address] [place] [address] 01/08/[address] [facility] for [facility] - [place] [address] [facility], [address] [place] [address] 02/15/2025 12:45 PM EST Appointment [facility] - [place] [address] [facility], [address] [place] [address] Doron Whitley MBBS [address] [address] [email or web address] 02/15/2025 1:30 PM EST Office [place] [facility] [place] 55 [facility], 6th Floor, [address] [place] [address] Doron Whitley MBBS [address] [address] [email or web address] documented as of this encounter Visit Diagnoses Not on filedocumented in this encounter Care Teams School Leader Relationship Specialty Start Date End Date Dangelo Huber MD [address] [address] PCP - General Family Medicine 12/09/24 Joel Armando MD 759 [place] [address] Thoracic Surgery 10/13/24 Doron Whitley MBBS [address] [place] [phone] [email or web address] Cardiothoracic Surgery 10/13/24 documented as of this encounter Additional Source Comments The information contained in this document represents components of the legal health record. It is not the complete legal health record.[facility]
--- OUTSIDE RECORDS SUMMARY | 2025-01-16 11:16 | XMS_ITS | Encounter Summary ---
Author Organization [facility] Address [address] [facility] [address] [place] [address] Phone Care Team Providers Care Core Maker Helper Name Role Phone Joel Armando MD Unavailable [phone] Doron Whitley Unavailable [phone] Dangelo Huber MD Primary Care Provider Encounter Details Date Type Department Care Team (Late st Contact Info) Description 12/16/2024 Orders Only [facility] V[facility]UAL DEPARTMENT [address] [place] [address] [phone] Suzanne Vo [address] [place] [phone] [email or web address] Preop cardiovascular exam Social History Tobacco Use [...] 01/04/2025 5:00 PM Idalia Clark RN * [place] Suicide Severity Rating Scale (Screener/Recent Self-Report) Question Answer Date of Assessment Author 1. Wish to be (Past 1 Month) No 01/04/2025 5:00 PM Idalia Garcia RN 2. Non-Specific Active Suicidal Thoughts (Past 1 Month) No 01/04/2025 5:00 PM EST Idalia Martinez, RN 6. Suicidal Behavior (Lifetime) No 01/04/2025 5:00 PM EST Idalia Martinez, RN documented as of this encounter Plan of Treatment Upcoming Encounters Date Type Department Care Team (Late st Contact Info) Description 01/08/2025 Procedure Pass [facility] for Outpatient Care - [place] [address] [facility], [address] [place] [address] 01/08/2025 Procedure Pass [facility] for Outpatient Care - [place] [address] [facility], [address] [place] [address] 02/15/2025 12:45 PM EST Appointment [facility] for Outpatient Care - [place] [address] [facility], [address] [place] [address] Doron Whitley MBBS [address] [address] [email or web address] 02/15/2025 1:30 PM EST Office Visit [facility] [place] of [place] Surgery [address] [place] [address], [address]th [facility], [address] [place] [address] Doron Whitley MBBS [address] [address] [email or web address] documented as of this encounter Procedures Procedure Name Priority Date/Time Associated Diagnosis Comments ECG 12-LEAD Routine 12/16/2024 2:30 PM EDT Preop cardiovascular exam documented in this encounter Results * ECG 12-LEAD (12/16/2024 2:30 PM EDT) Systolic Blood Pressure [facility] Diastolic Blood Pressure [facility] Ventricular Rate EKG/MIN 59 BPM [facility] Atrial Rate 59 BPM [facility] SD Interval 162 ms [facility] QRS Duration 100 ms [facility] QT Interval 402 ms [facility] QTC Interval 397 ms [facility] P Spangler 66 degrees [facility] R Wave Spangler -19 degrees [facility] T Wave Spangler 38 degrees [facility] 12/16/2024 2:30 PM EDT 12/20/2024 10:50 AM EST Narrative [facility] - 12/20/2024 10:50 AM EST LOC: [facility] 6 - CARDIAC SURG DX: PRE-OP REF: MITRA ROSALES - JOE SINUS BRADYCARDIA TRACING IS WITHIN NORMAL LIMITS NO PREVIOUS ECGS AVAILABLE us Mitra DIAZ ECG ORDERABLES Fi nal Result [facility] documented in this encounter Visit Diagnoses Diagnosis Preop cardiovascular exam Pre-operative cardiovascular examination documented in this encounter Care Teams Core Maker Helper Relationship Specialty Start Date End Date Dangelo Huber MD [address] [address] PCP - General Family Medicine 12/09/24 Joel Armando MD 7[address] [place] [address] Thoracic Surgery 10/13/24 Doron Whitley MBBS [address] [place] [address] [email or web address] Cardiothoracic Surgery 10/13/24 documented as of this encounter Additional Source Comments The information contained in this document represents components of the legal health record. It is not the complete legal health record.[facility]
--- OUTSIDE RECORDS SUMMARY | 2025-01-16 11:16 | XMS_ITS | Encounter Summary ---
Author Organization [facility] Address [address] [facility] [address] [place] [address] Phone Care Team Providers Care Metal Room Dental Technician Name Role Phone Joel Armando MD Unavailable [phone] Doron Whitley Unavailable [phone] Dangelo Huber MD Primary Care Provider Encounter Details Date Type Department Care Team (Late st Contact Info) Description 01/02/2025 Procedure Pass [facility] [address] [place] [address] Social History Tobacco Use Types Packs/Day Years [...] 01/04/2025 5:00 PM Idalia Clark RN * [place] Suicide Severity Rating Scale (Screener/Recent Self-Report) Question Answer Date of Assessment Author 1. Wish to be (Past 1 Month) No 01/04/2025 5:00 PM Idalia Garcia, NOAH 2. Non-Specific Active Suicidal Thoughts (Past 1 Month) No 01/04/2025 5:00 PM Idalia Garcia, NOAH 6. Suicidal Behavior (Lifetime) No 01/04/2025 5:00 PM EST Idalia Martinez, NOAH documented as of this encounter Plan of Treatment Upcoming Encounters Date Type Department Care Team (Late st Contact Info) Description 01/08/2025 Procedure Pass [facility] for Outpatient Care - [place] [address] [facility], [address]th [place] [address] 01/08/2025 Procedure Pass [facility] for [facility] - [place] [address] [place] [address], [address] [place] [address] 02/15/2025 12:45 PM EST Appointment [facility] for Outpatient Care - [place] [address] [place] [address], [address] [place] [address] Doron Whitley MBBS [address] [place] [id number] [email or web address] 02/15/2025 1:30 PM EST Office Visit [facility] [place] of Cardiac Surgery [address] [place] [address], [address] [place] [address], [address] [place] [address] Doron Whitley MBBS [address] [place] [phone] [email or web address] documented as of this encounter Visit Diagnoses Not on filedocumented in this encounter Care Teams Metal Room Dental Technician Relationship Specialty Start Date End Date Dangelo Huber MD [facility] [address] [address] PCP - General Family Medicine 12/09/24 Joel Armando MD [address] [place] [address] Thoracic Surgery 10/13/24 Doron Whitley MBBS [address] [address] [email or web address] Cardiothoracic Surgery 10/13/24 documented as of this encounter Additional Source Comments The information contained in this document represents components of the legal health record. It is not the complete legal health record.[facility]
== END 2025-01-16 10:05 | disposition home or self-care (01) ==
LOC: HO.HMCFMS 09:32
PROVIDERS: PCP Student in an Organized Health Care Education/Training Program; Visit Provider Student in an Organized Health Care Education/Training Program
DX: I10 Essential (primary) hypertension (principal); I71.010 Dissection of ascending aorta; E66.9 Obesity, unspecified; R17 Unspecified jaundice; Z48.89 Encounter for other specified surgical aftercare; D64.9 Anemia, unspecified; E80.6 Other disorders of bilirubin metabolism

== ENCOUNTER 2025-01-16 09:31 | Outpatient (REF) | payer OTHER, SELFPAY ==
[2025-01-16 13:56] LABS: Anion Gap 10 (12-20); Blood Urea Nitrogen 14 mg/dL (9-16); Calcium 9.2 mg/dL (8.4-10.2); Carbon Dioxide 27 mmol/L (22-29); Chloride 109 mmol/L (96-108); Estimated Glomerular Filt Rate > 60; Gamma Glutamyl Transpeptidase 121 U/L (11-51); Potassium 4.2 mmol/L (3.3-5.1); Sodium 142 mmol/L (135-145)
== END 2025-01-16 09:32 | disposition home or self-care (01) ==
LOC: HO.HKASLDS 09:31
PROVIDERS: PCP Student in an Organized Health Care Education/Training Program; Visit Provider Student in an Organized Health Care Education/Training Program
DX: I10 Essential (primary) hypertension (principal); I71.010 Dissection of ascending aorta; E66.9 Obesity, unspecified; R17 Unspecified jaundice; Z48.89 Encounter for other specified surgical aftercare; D64.9 Anemia, unspecified; E80.6 Other disorders of bilirubin metabolism
CPT/HCPCS: 36415; 80048; 82248; 82977